=== PATIENT | female | born 1930 | race Caucasian/White ===

== ENCOUNTER 2017-01-27 22:06 | Emergency (ER) | payer MEDICARE ==
[2016-02-24 12:34] VITALS: BMI 23.2
[~2017-01-27 22:06] MED LIST: ALENDRONATE SOD70 MG PO; BACTRIM DS TABL1 TAB PO; BAYER CHEWABLE81 MG PO; CATAPRES0.1 MG PO; DOXEPIN HCL10 MG PO; HCTZ25 MG PO; LIPITOR20 MG PO; LISINOPRIL10 MG PO; LISINOPRIL5 MG PO; LOPRESSOR25 MG PO; MULTIPLE VITAMI1 TA1 PO; MUPIROCIN22 GM TOPICAL; NORVASC5 MG PO; NYSTATIN1 PWD TOPICAL; PLAVIX75 MG PO; ZESTRIL20 MG PO
[2017-01-27 23:23] LABS: BASOPHILS 0.3 % (0-2); EOSINOPHILS 2.2 % (0-7); HEMATOCRIT 36.2 % (36.0-48.0); HEMOGLOBIN 12.4 g/dL (12-16); IMMATURE GRANULOCYTES 0.2 % (0-5); MCH 29.7 pg (26.0-34.0); MCHC 34.3 g/dL (31.0-37.0); MCV 86.8 fL (80.0-100.0); MEAN PLATELET VOLUME 10.1 fL (7.4-10.4); MONOCYTES 7.4 % (2-11); NEUTROPHILS 59.9 % (40-80); PLATELET COUNT 254 10x3/uL (130-400); RBC 4.17 10x6/uL (4.00-5.40); RDW 14.3 % (11.5-14.5); WBC 6.5 10x3/uL (4.8-10.8)
[2017-01-27 23:38] LABS: ALBUMIN 3.6 g/dL (3.4-5.0); ALKALINE PHOSPHATASE 112 U/L (46-116); ALT (SGPT) 20 U/L (10-68); CALC OSMOLALITY 260 mosm/kg (275-300); CALCIUM 9.3 mg/dL (8.5-10.1); CARBON DIOXIDE 24.9 mmol/L (21.0-32.0); CHLORIDE - SERUM 96 mmol/L (98-107); GLUCOSE 100 mg/dL (74-106); POTASSIUM - SERUM 4.2 mmol/L (3.5-5.1); PROTEIN - SERUM 7.4 g/dL (6.4-8.2); SODIUM 129 mmol/L (136-145); UREA NITROGEN 19 mg/dL (7-18); eGFR NON AFRICAN AMERICAN 56 mL/min (90-120)
[2017-01-27 23:41] LABS: CREATINE KINASE 91 UL (21-215)
[2017-01-27 23:45] LABS: TROPONIN-I < 0.017 ng/mL (0.000-0.060)
== END 2017-01-28 00:52 | disposition home or self-care (01) ==
LOC: D.ER 22:06
PROVIDERS: Emergency Medicine
DX: R00.0 Tachycardia, unspecified (principal); I47.9 Paroxysmal tachycardia, unspecified; I16.0 Hypertensive urgency

== ENCOUNTER 2017-01-28 13:50 | Inpatient (IN) | payer MEDICARE ==
[~2017-01-28] VITALS: Ht 152.4 cm; Wt 57.0 kg
[2017-01-28 14:30] LABS: BASOPHILS 0.3 % (0-2); EOSINOPHILS 1.5 % (0-7); HEMATOCRIT 35.2 % (36.0-48.0); IMMATURE GRANULOCYTES 0.3 % (0-5); LYMPHOCYTES 22.4 % (15-50); MCH 29.7 pg (26.0-34.0); MCHC 34.1 g/dL (31.0-37.0); MCV 87.1 fL (80.0-100.0); MEAN PLATELET VOLUME 9.9 fL (7.4-10.4); MONOCYTES 5.5 % (2-11); PLATELET COUNT 262 10x3/uL (130-400); RBC 4.04 10x6/uL (4.00-5.40); RDW 14.5 % (11.5-14.5); WBC 6.5 10x3/uL (4.8-10.8)
[2017-01-28 14:48] LABS: ALBUMIN 3.5 g/dL (3.4-5.0); ANION GAP 14.3 mmol/L (8-16); BILIRUBIN - TOTAL 0.63 mg/dL (0.2-1.3); CALCIUM 9.2 mg/dL (8.5-10.1); CARBON DIOXIDE 22.6 mmol/L (21.0-32.0); CREATININE - SERUM 1.2 mg/dL (0.6-1.3); POTASSIUM - SERUM 4.9 mmol/L (3.5-5.1); PROTEIN - SERUM 7.1 g/dL (6.4-8.2)
[2017-01-28 15:45] LABS: APPEARANCE CLEAR (CLEAR); COLOR YELLOW (YELLOW); SPECIFIC GRAVITY 1.015 (1.005-1.020)
[2017-01-28 15:45] LABS: CREATINE KINASE 81 UL (21-215)
[2017-01-28 15:46] LABS: BILIRUBIN NEGATIVE (NEGATIVE); GLUCOSE NEGATIVE (NEGATIVE); KETONE NEGATIVE (NEGATIVE); LEUKOCYTE ESTERASE 2+ (NEGATIVE); NITRITE NEGATIVE (NEGATIVE); PROTEIN TRACE mg/dL (NEGATIVE); UROBILINOGEN NORMAL (NORMAL)
[2017-01-28 15:46] LABS: TROPONIN-I < 0.017 ng/mL (0.000-0.060)
[2017-01-28 15:49] LABS: BACTERIA MODERATE /hpf (NONE SEEN); EPITHELIAL CELLS 0-5 /hpf (0-5); RED CELLS - URINE 0-5 /hpf (0-5)
--- NOTE | 2017-01-28 18:00 | NUR ---
RECIVED FROM ER PER WC TO ROOM 211. WITOUT DIATRESS NOTED AT THIS TIME. RN FOR ADMIT ASSESSMENT
[2017-01-28 19:23] VITALS: BP 146/54; Ht 152.4 cm; Wt 57.0 kg
--- NOTE | 2017-01-28 19:44 | NUR ---
INITIAL ROUNDS COMPLETED. PT DENIED ANY DISCOMFORT. ADMISSION ASSESSMENT COMPLETED. IV TO LFA SL.. ALERT AND ORIENTED TO PERSON, PLACE AND TIME. SR PER CM HR 66. VSS. WILL CONTINUE TO MONITOR. SR UP X2, CALL LIGHT WITHIN REACH.
[2017-01-28 20:00] VITALS: BP 146/54
[2017-01-28 21:03] LABS: CKMB 2.3 U/L (0.0-3.6); CREATINE KINASE 68 UL (21-215)
[2017-01-28 21:04] LABS: TROPONIN-I < 0.017 ng/mL (0.000-0.060)
--- NOTE | 2017-01-28 22:48 | NUR ---
PM EKG DONE. PT DENIES ANY DISCOMFORT. SCD'S PLACED PER PT'S REQUEST. WILL CONTINUE TO MONITOR. SR UP X2, CALL LIGHT WITHIN REACH.
[2017-01-29] VITALS: BP 139/56
--- NOTE | 2017-01-29 01:12 | NUR ---
PT RESTING WITH EYES CLOSED. RESP EVEN AND REGULAR. SR UP X2, CALL LIGHT WITHIN REACH.
--- NOTE | 2017-01-29 02:26 | NUR ---
PT RESTING WITH EYES CLOSED. ON R SIDE. RESP EVEN AND REGULAR. SR UP X2,CALL LIGHT WITHIN REACH.
[2017-01-29 03:29] LABS: BASOPHILS 0.4 % (0-2); HEMATOCRIT 35.5 % (36.0-48.0); HEMOGLOBIN 12.3 g/dL (12-16); IMMATURE GRANULOCYTES 0.1 % (0-5); LYMPHOCYTES 27.4 % (15-50); MCH 30.1 pg (26.0-34.0); MCHC 34.6 g/dL (31.0-37.0); MCV 86.8 fL (80.0-100.0); MEAN PLATELET VOLUME 10.5 fL (7.4-10.4); MONOCYTES 8.1 % (2-11); PLATELET COUNT 283 10x3/uL (130-400); RBC 4.09 10x6/uL (4.00-5.40); RDW 14.5 % (11.5-14.5); WBC 7.1 10x3/uL (4.8-10.8)
--- NOTE | 2017-01-29 03:41 | NUR ---
PT RESTING WITH EYES CLOSED. RESP EVEN AND REGULAR. SR UP X2, CALL LIGHT WITHIN REACH.
[2017-01-29 04:00] VITALS: BP 150/67
[2017-01-29 04:09] LABS: CALC OSMOLALITY 267 mosm/kg (275-300); CALCIUM 8.8 mg/dL (8.5-10.1); CARBON DIOXIDE 26.4 mmol/L (21.0-32.0); CHLORIDE - SERUM 100 mmol/L (98-107); CKMB 2.4 U/L (0.0-3.6); CREATINE KINASE 75 UL (21-215); CREATININE - SERUM 1.1 mg/dL (0.6-1.3); GLUCOSE 89 mg/dL (74-106); POTASSIUM - SERUM 4.4 mmol/L (3.5-5.1); SODIUM 133 mmol/L (136-145); UREA NITROGEN 22 mg/dL (7-18); eGFR NON AFRICAN AMERICAN 50 mL/min (90-120)
[2017-01-29 04:16] LABS: TROPONIN-I < 0.017 ng/mL (0.000-0.060)
--- NOTE | 2017-01-29 06:22 | NUR ---
VSS THROUGHOUT NIGHT. SB PER CM. PT DENIED ANY DISCOMFORT. NEEDS MET; WILL CONTINUE TO MONITOR.
[2017-01-29 08:00] VITALS: BP 139/58
--- NOTE | 2017-01-29 08:02 | NUR ---
ASSESSMENT DONE, DENIES NEEDS.
--- NOTE | 2017-01-29 09:26 | NUR ---
RESTS IN BED WITH CALL LIGHT IN REACH. DEBORAH NEEDS AT THIS TIME. WILL MONITOR.
[2017-01-29 09:44] LABS: CKMB 2.4 U/L (0.0-3.6); CREATINE KINASE 60 UL (21-215); TROPONIN-I < 0.017 ng/mL (0.000-0.060)
--- NOTE | 2017-01-29 17:57 | NUR ---
WITHOUT CHANGES OR DISTRESS NOTED AT THIS TIME. DENIES NEEDS,
--- NOTE | 2017-01-29 20:02 | NUR ---
INITIAL ROUNDS COMPLETED AT 1910 HRS. PT DENIED ANY DISCOMFORT. ASSESSMENT COMPLETED AT 1925 HRS. VSS. SR PER CM HR 70. IV TO LFA SL. LUNGS CTA. PT DECLINES SCD'S AT THIS TIME. WILL CONTINUE TO MONITOR. SR UP X2, CALL LIGHT WITHIN REACH.
[2017-01-29 21:33] VITALS: BP 178/66
--- NOTE | 2017-01-29 22:19 | NUR ---
PM MEDS GIVEN. WILL CONTINUE TO MONITOR.
[2017-01-29 23:00] VITALS: BP 177/56
--- NOTE | 2017-01-29 23:51 | NUR ---
PT RESTING WITH EYES CLOSED. RESP EVEN AND REGULAR. SR UP X2, CALL LIGHT WITHIN REACH.
--- NOTE | 2017-01-30 02:12 | NUR ---
PT RESTING WITH EYES CLOSED. RESP EVEN AND REGULAR. SR UP X2, CALL LIGHT WITHIN REACH.
--- NOTE | 2017-01-30 04:48 | NUR ---
PT RESTING WITH EYES CLOSED. RESP EVEN AND REGULAR. SR UP X2, CALL LIGHT WITHIN REACH.
--- NOTE | 2017-01-30 06:09 | NUR ---
VSS THROUGHOUT NIGHT. SR/SB PER CM. PT DENIED ANY DISCOMFORT. NEEDS MET; WILL CONTINUE TO MONITOR.
[2017-01-30 06:37] VITALS: BP 114/54
--- NOTE | 2017-01-30 07:51 | NUR ---
ASSESSMENT COMPLETED. TELEMERTY SHOWS SB AT 57. DENIES ANY SYMPTOMS. LEFT FA SL. WILL MONITOR
[2017-01-30 08:22] VITALS: BP 175/56
[2017-01-30 11:43] VITALS: BP 145/54
--- NOTE | 2017-01-30 12:17 | NUR ---
SITTING UP EATING LUNCH. O2 ON. MONITOR SHOWS SR WITH OCC PVC. RATE IS 71.
--- NOTE | 2017-01-30 15:29 | NUR ---
Patient Name: KALEIGH GANT Admission Status: ER Accout number: [id number] Admission Date: 01-28-2017 : 1930 Admission Diagnosis: Attending: CLIF Current LOS: 2 Anticipated DC Date: 01-30-2017 Planned Disposition: Home Primary Insurance: [facility] Discharge Planning Comments: * Is the patient Alert and Oriented? Yes 0 * How many steps to enter\exit or inside your home? 5-6 0 * PCP DR. CHEUNG 0 * Pharmacy [facility] [place] 0 * Preadmission Environment Home Alone 0 * ADLs Independent 0 * Equipment Cane Walker 0 * Other Equipment [facility] - MEDICAL EQUIPMENT PROVIDER PREFERENCE 0 * List name and contact numbers for known caregivers / representatives who currently or will assist patient after discharge: JACIEL MAYA, DTR, MADIA LOVE, DTR, 0 * Community resources currently utilized None 0 * Please name any agencies selected above. NONE 0 * Can the patient safely return to the preadmission environment? Yes 0 * Has this patient been hospitalized within the prior 30 days at any hospital? No 0 CM MET WITH PT AND TWO DAUGHTERS IN ROOM TO DISCUSS DISCHARGE PLANNING AND NEEDS. PT REPORTS LIVING AT HOME INDEPENDENTLY AND ALONE. PT HAS 4 PRONGED CANE AND WALKER, SCOTTIE IS PROVIDER. PT HAS NO OUTSIDE SERVICES ASSISTING IN THE HOME. CM DISCUSSED AVAILABILITY OF HOME HEALTH, REHAB SERVICES AND MEDICAL EQUIPMENT. PT DENIES DISCHARGE NEEDS, REPORTS DAUGHTERS ARE HERE TO PICK HER UP FOR DISCHARGE HOME TODAY. Dust Brush Assembler: Parag Morton
--- NOTE | 2017-01-30 16:47 | NUR ---
pt DISCHARGED. INSTRUCTIONS GIVEN TO PT AND FAMILY. IV DCD WITH TIP INTACT. TO PRIVATE CAR PER WHEEL CHAIR
== END 2017-01-30 16:49 | disposition home or self-care (01) | DRG 310 ==
LOC: D.ER 13:50 → D.M2 17:00
PROVIDERS: Family Medicine; ADMIT Family Medicine
DX: R00.1 Bradycardia, unspecified (principal); I25.10 Atherosclerotic heart disease of native coronary artery without angina pectoris; Z95.5 Presence of coronary angioplasty implant and graft; I10 Essential (primary) hypertension; M81.0 Age-related osteoporosis without current pathological fracture

== ENCOUNTER 2017-02-15 14:18 | Emergency (ER) | payer MEDICARE ==
[2017-01-28 19:23] VITALS: BMI 25.2
[2017-02-15 14:52] LABS: BASOPHILS 0.4 % (0-2); EOSINOPHILS 1.3 % (0-7); HEMATOCRIT 38.3 % (36.0-48.0); HEMOGLOBIN 13.1 g/dL (12-16); IMMATURE GRANULOCYTES 0.1 % (0-5); LYMPHOCYTES 19.5 % (15-50); MCH 30.2 pg (26.0-34.0); MCHC 34.2 g/dL (31.0-37.0); MCV 88.2 fL (80.0-100.0); MEAN PLATELET VOLUME 9.8 fL (7.4-10.4); MONOCYTES 6.1 % (2-11); NEUTROPHILS 72.6 % (40-80); PLATELET COUNT 306 10x3/uL (130-400); RBC 4.34 10x6/uL (4.00-5.40); RDW 14.5 % (11.5-14.5); WBC 6.9 10x3/uL (4.8-10.8)
[2017-02-15 15:10] LABS: APPEARANCE CLEAR (CLEAR); BILIRUBIN NEGATIVE (NEGATIVE); COLOR YELLOW (YELLOW); GLUCOSE NEGATIVE (NEGATIVE); KETONE NEGATIVE (NEGATIVE); LEUKOCYTE ESTERASE 1+ (NEGATIVE); NITRITE NEGATIVE (NEGATIVE); PROTEIN NEGATIVE (NEGATIVE); UROBILINOGEN NORMAL (NORMAL)
[2017-02-15 15:14] LABS: BACTERIA FEW /hpf (NONE SEEN); EPITHELIAL CELLS 0-5 /hpf (0-5); RED CELLS - URINE 0-5 /hpf (0-5); WHITE CELLS - URINE 0-5 /hpf (0-5)
[2017-02-15 15:14] LABS: ALBUMIN 3.7 g/dL (3.4-5.0); ANION GAP 14.7 mmol/L (8-16); BILIRUBIN - TOTAL 0.55 mg/dL (0.2-1.3); CALCIUM 9.6 mg/dL (8.5-10.1); CARBON DIOXIDE 25.8 mmol/L (21.0-32.0); CREATININE - SERUM 1.1 mg/dL (0.6-1.3); POTASSIUM - SERUM 4.5 mmol/L (3.5-5.1); PROTEIN - SERUM 7.8 g/dL (6.4-8.2)
[2017-02-15 15:42] LABS: CREATINE KINASE 68 UL (21-215); TROPONIN-I < 0.017 ng/mL (0.000-0.060)
== END 2017-02-15 17:10 | disposition home or self-care (01) ==
LOC: D.ER 14:18
PROVIDERS: Emergency Medicine; Nurse Practitioner Acute Care
DX: R53.1 Weakness (principal); R00.2 Palpitations; I10 Essential (primary) hypertension; I49.3 Ventricular premature depolarization

== ENCOUNTER 2017-02-22 18:46 | Inpatient (IN) | payer MEDICARE ==
[2017-02-22 19:35] LABS: BASOPHILS 0.1 % (0-2); EOSINOPHILS 0.1 % (0-7); HEMATOCRIT 34.3 % (36.0-48.0); HEMOGLOBIN 11.9 g/dL (12-16); IMMATURE GRANULOCYTES 0.2 % (0-5); MCH 29.6 pg (26.0-34.0); MCHC 34.7 g/dL (31.0-37.0); MCV 85.3 fL (80.0-100.0); MEAN PLATELET VOLUME 10.1 fL (7.4-10.4); MONOCYTES 5.5 % (2-11); NEUTROPHILS 86.1 % (40-80); PLATELET COUNT 259 10x3/uL (130-400); RBC 4.02 10x6/uL (4.00-5.40); RDW 13.8 % (11.5-14.5); WBC 11.4 10x3/uL (4.8-10.8)
[2017-02-22 20:10] LABS: ALBUMIN 3.6 g/dL (3.4-5.0); ALKALINE PHOSPHATASE 88 U/L (46-116); ALT (SGPT) 19 U/L (10-68); BILIRUBIN - TOTAL 0.93 mg/dL (0.2-1.3); CALC OSMOLALITY 248 mosm/kg (275-300); CARBON DIOXIDE 22.8 mmol/L (21.0-32.0); CHLORIDE - SERUM 89 mmol/L (98-107); GLUCOSE 112 mg/dL (74-106); POTASSIUM - SERUM 4.7 mmol/L (3.5-5.1); PROTEIN - SERUM 7.2 g/dL (6.4-8.2); SODIUM 122 mmol/L (136-145); UREA NITROGEN 19 mg/dL (7-18); eGFR NON AFRICAN AMERICAN 56 mL/min (90-120)
[2017-02-22 20:11] LABS: APTT 26.7 SECONDS (22.8-39.4); INR 1.08 (0.85-1.17); PROTIME 13.9 SECONDS (11.6-15.0)
[2017-02-22 20:18] LABS: AMYLASE - SERUM 63 U/L (25-115); CREATINE KINASE 77 UL (21-215); LIPASE 176 U/L (73-393); PRO BNP 451 pg/mL (0-450)
[2017-02-22 20:23] LABS: APPEARANCE CLEAR (CLEAR); BILIRUBIN NEGATIVE (NEGATIVE); COLOR YELLOW (YELLOW); GLUCOSE NEGATIVE (NEGATIVE); KETONE NEGATIVE (NEGATIVE); LEUKOCYTE ESTERASE NEGATIVE (NEGATIVE); NITRITE NEGATIVE (NEGATIVE); PROTEIN NEGATIVE (NEGATIVE); SPECIFIC GRAVITY 1.015 (1.005-1.020); UROBILINOGEN NORMAL (NORMAL)
[2017-02-22 20:23] LABS: TROPONIN-I < 0.017 ng/mL (0.000-0.060)
[2017-02-22 20:36] LABS: UDS - AMPHET NEGATIVE QUAL (NEGATIVE); UDS - BARB NEGATIVE QUAL (NEGATIVE); UDS - BENZO NEGATIVE QUAL (NEGATIVE); UDS - COCAINE NEGATIVE QUAL (NEGATIVE); UDS - METH NEGATIVE QUAL (NEGATIVE); UDS - OPIATE NEGATIVE QUAL (NEGATIVE); UDS - PCP NEGATIVE QUAL (NEGATIVE); UDS - THC NEGATIVE QUAL (NEGATIVE)
--- NOTE | 2017-02-22 23:06 | NUR ---
REPORT RECEIVED FROM JUAN LESTER.
--- NOTE | 2017-02-22 23:39 | NUR ---
ARRIVED TO FLOOR VIA WHEELCHAIR, ACCOMPANIED BY HOSPITAL STAFF AND DAUGHTER. ORIENTED TO UNIT AND PLACED ON TELEMETRY 72 SR WITH MULTIFOCAL PVCS. HALTER MONITOR ALREADY ON, WILL LEAVE ON FOR NOW. NS @ 75 INITIATED TO RIGHT FOREARM. PLAN OF CARE DISCUSSED, NO NEEDS VOICED AT THIS TIME. CALL LIGHT IN REACH. SEE NURSE ASSESSMENT. WILL CONTINUE TO MONITOR.
[2017-02-23] VITALS: BP 156/58
--- NOTE | 2017-02-23 03:11 | NUR ---
BUSINESS OFFICE SPECIALIST AT BEDSIDE TO OBTAIN VITALS, CALL LIGHT IN REACH. WILL CONTINUE TO MONITOR.
[2017-02-23 04:00] VITALS: BP 151/91
--- NOTE | 2017-02-23 06:36 | NUR ---
NO CHANGES FROM PREVIOUS ASSESSMET, CALL LIGHT IN REACH. WILL CONTINUE TO MONITOR.
[2017-02-23 06:38] LABS: ANION GAP 13.5 mmol/L (8-16); CARBON DIOXIDE 22.7 mmol/L (21.0-32.0); POTASSIUM - SERUM 4.2 mmol/L (3.5-5.1)
[2017-02-23 08:15] VITALS: BP 146/53
[2017-02-23 13:09] VITALS: BP 163/83
[2017-02-23 16:26] VITALS: BP 155/47
--- NOTE | 2017-02-23 19:40 | NUR ---
RECEIVED REPORT, WILL ASSUME CARE OF PT, DENIES ANY NEEDS, VISITING WITH FAMILY AND FRIENDS, BED IS LOW, SRX2, CALL LIGHT IN REACH, WILL CONTINUE PLAN OF CARE
[2017-02-23 20:00] VITALS: BP 159/51
[2017-02-24] VITALS: BP 117/48
[2017-02-24 04:00] VITALS: BP 158/57
--- NOTE | 2017-02-24 04:24 | NUR ---
ASSESSMENT COMPLETE, SEE FLOWSHEET, PT SLEEPING, DAUGHTER AT BEDSIDE, BED IS LOW, SRX2, CALL LIGHT IN REACH, WILL CONTINUE PLAN OF CARE
[2017-02-24 05:16] LABS: BASOPHILS 0.2 % (0-2); EOSINOPHILS 1.8 % (0-7); HEMATOCRIT 30.9 % (36.0-48.0); HEMOGLOBIN 10.7 g/dL (12-16); IMMATURE GRANULOCYTES 0.2 % (0-5); LYMPHOCYTES 18.1 % (15-50); MCH 29.8 pg (26.0-34.0); MCHC 34.6 g/dL (31.0-37.0); MCV 86.1 fL (80.0-100.0); MEAN PLATELET VOLUME 10.1 fL (7.4-10.4); MONOCYTES 9.1 % (2-11); NEUTROPHILS 70.6 % (40-80); PLATELET COUNT 266 10x3/uL (130-400); RBC 3.59 10x6/uL (4.00-5.40); RDW 13.9 % (11.5-14.5)
[2017-02-24 05:19] LABS: WBC 6.6 10x3/uL (4.8-10.8)
[2017-02-24 05:29] LABS: ANION GAP 11.8 mmol/L (8-16); CALCIUM 8.2 mg/dL (8.5-10.1); CARBON DIOXIDE 22.2 mmol/L (21.0-32.0); CREATININE - SERUM 0.9 mg/dL (0.6-1.3)
[2017-02-24 08:20] VITALS: BP 176/62
--- NOTE | 2017-02-24 10:02 | NUR ---
PATIENT RESTING WITHOUT C/O ANY KIND.
[2017-02-24 12:35] VITALS: BP 165/59
--- NOTE | 2017-02-24 14:47 | NUR ---
* Is the patient Alert and Oriented? Yes 0 * How many steps to enter\exit or inside your home? 4 0 * PCP Dr. Almeida 0 * Pharmacy [facility] 0 * Preadmission Environment Home Alone 0 * ADLs Independent 0 * Equipment Cane Walker 0 * List name and contact numbers for known caregivers / representatives who currently or will assist patient after discharge: Daughter Juana Wagoner [phone] Daughter Juana Aguilera [phone] 0 * Additional services required to return to the preadmission environment? Yes 0 * Can the patient safely return to the preadmission environment? Yes 0 * Has this patient been hospitalized within the prior 30 days at any hospital? Yes 02/24/2017 14:42 DCP: Discharge Planning Patient Name: KALEIGH GANT Admission Status: ER Accout number: [id number] Admission Date: 02-22-2017 : 1930 Admission Diagnosis:HYPO-OSMOLALITY AND HYPONATREMIA Attending: BE Current LOS: 2 Anticipated DC Date: 02-24-2017 Planned Disposition: Home with Home Health Primary Insurance: [facility] Discharge Planning Comments: CM met with patient & daughter, Jona, at bedside. Patient lives alone & is independent with all ADL's & IADL's. She uses a cane PRN but also has a rolling walker. She does not have home health services. DC order rec'd. Discussed home health services with them - patient is agreeable. Reviewed list of local agencies - they have chosen [facility] - GUIDO signed. Referral faxed and called to Shannon with [employer] [facility]. Anticipate DC this afternoon. Corporate Executive Chef: Amna Swan
[2017-02-24 15:06] VITALS: BP 149/66
--- NOTE | 2017-02-24 16:28 | NUR ---
REVIEWED [facility] DISCHARGE INSTRUCTIONS. SHE AND DAUGHTER VOICE UNDERSTANDING [facility] MEDICATIONS AND FOLLOW UP APPTS REGARDING F/U WITH DR. GARNICA AND HOUSE CALLS. WHEELED OUT TO CAR IN A WHEELCHAIR AND DRIVEN HOME BY DAUGHTER.
== END 2017-02-24 16:30 | disposition home health service (06) | DRG 641 ==
LOC: D.ER 18:46 → D.M2 22:10
PROVIDERS: Emergency Medicine; ADMIT Emergency Medicine
DX: E87.1 Hypo-osmolality and hyponatremia (principal); F41.9 Anxiety disorder, unspecified; M81.0 Age-related osteoporosis without current pathological fracture; I10 Essential (primary) hypertension; I25.10 Atherosclerotic heart disease of native coronary artery without angina pectoris

== ENCOUNTER 2018-07-21 09:06 | Inpatient (IN) | payer MEDICARE ==
[2018-07-21] VITALS (14 sets, daily range): BP systolic 117–223; BP diastolic 37–106; BMI 23.4
[~2018-07-21] VITALS: Ht 152.4 cm; Wt 54.4 kg
--- NOTE | ~2018-07-21 | MORECARE ---
CASE MANAGEMENT DISCHARGE SUMMARY PATIENT: KALEIGH GANT UNIT: [id number] ADM DATE: 07/21/18 AGE: 88 : 32 SEX: F ROOM/BED: D.1205 AUTHOR: YESSICA,ODALYS PHYSICIAN: REFERRING PHYSICIAN: CAM OSORIO DO DATE OF SERVICE: 07/31/18 Discharge Plan Patient Name: KALEIGH GANT Facility: [facility]:[place] : 1930 Planned Disposition: Inpatient Rehab Anticipated Discharge Date: Discharge Date: Expected LOS: Initial Reviewer: [email or web address] Initial Review Date: 07/24/2018 Generated: 07/31/18 2:55 pm Comments DCP- Discharge Planning Updated by [id number]: Lori Simmons on 07/31/18 12:[address] CM spoke with patient and daughter about discharge plans since insurance denied patient for IRF. Patient and daughter want to attempt SNF authorization with insurance. Patient and daughter selected [facility] for SNF. Signed GUIDO form. CM called and spoke with Kim at [facility] about referral. Faxed records as requested. Awaiting determination of auth. CM will continue to follow and assist as needed with discharge planning / needs. DCP- Discharge Planning Updated by [email or web address]: Sharon Cao on 07/31/18 12:[address] Late Entry 07/24/18 @ 1825 Patient Name: KALEIGH GANT Admission Status: ER Accout number: [id number] Admission Date: 07-21-2018 : 1930 Admission Diagnosis:RIGHT LOWER QUADRANT PAIN Attending: CAM OSORIO Current LOS: 4 Anticipated DC Date: Planned Disposition: Inpatient Rehab Primary Insurance: [facility] [employer] SOLUTIONS Discharge Planning Comments: CM met with patient and daughter at bedside after obtaining verbal consent. Patient states that she lives alone and is will to go to inpatient rehab here @ [facility] inpatient rehab facility. Patient to have rehab eval. Patient denies any discharge needs at this time. CM will continue to follow and assist with discharge planning / needs. Chassis Wirer: Sharon Cao DCP- Discharge Planning Updated by [id number]: Lorri Duvall on 07/30/18 7:[address] PLAN FOR DISCHARGE PENDING. PATIENT'S BLODD PRESSURE IS POORLY CONTROLLED. INCREASED AMLODIPINE DOSAGE. HE HAD A PIPIDA SCAN TODAY. PLAN EDG WITH ESOPHAGEAL DILATION IN THE AM. FOLLOW LABS. DCPIA - Discharge Planning Initial Assessment Updated by [email or web address]: Sharon Cao on 07/25/18 1:35 pm * Is the patient Alert and Oriented? Yes * How many steps to enter\exit or inside your home? 4-5 * PCP Juan Pablo * Pharmacy [place] * Preadmission Environment Home Alone * ADLs Independent * Equipment Cane * Other Equipment Walker * List name and contact numbers for known caregivers / representatives who currently or will assist patient after discharge: Jona Wagoner daughter [phone] Viki Aguilera daughter [phone] * Verbal permission to speak to the caregivers and representatives has been obtained from the patient. Yes * Community resources currently utilized None * Additional services required to return to the preadmission environment? No * Can the patient safely return to the preadmission environment? Yes * Has this patient been hospitalized within the prior 30 days at any hospital? No External Providers External Provider: [facility] Next Contact Date: Service Request Date: Service Type: Resolution: Reviewer: Comments: Last DP export: 07/31/18 12:13 Patient Name: KALEIGH GANT Page 57437 at 1355 All edits/amendments must be made on the electronic document DICTATION DATE: 07/31/18 1352 TIRE REPAIRER: NIURKA 07/31/18 1355 RPT#: [id number] DC DATE: STATUS: ADM IN [facility] [address] [place] [address] END OF REPORT
--- NOTE | ~2018-07-21 | MORECARE ---
CASE MANAGEMENT DISCHARGE SUMMARY PATIENT: KALEIGH GANT UNIT: [id number] ADM DATE: 07/21/18 AGE: 88 : 32 SEX: F ROOM/BED: D.1205 AUTHOR: YESSICA,DOC PHYSICIAN: REFERRING PHYSICIAN: CAM OSORIO DO DATE OF SERVICE: 08/02/18 Discharge Plan Patient Name: KALEIGH GANT Facility: [facility]:[place] : 1930 Planned Disposition: Inpatient Rehab Anticipated Discharge Date: Discharge Date: 08/01/2018 Expected LOS: Initial Reviewer: [email or web address] Initial Review Date: 07/24/2018 Generated: 08/02/18 4:04 pm Comments DCP- Discharge Planning Updated by [email or web address]: Lori Simmons on 08/01/18 1:[address] CM received orders for patient to discharge home. CM met with physical therapist, Ric Castelan, about plans for patient to discharge home. Ric stated patient was safe in her ambulation at this time and felt home would be a safe discharge for the patient at this time. CM met with patient and her daughter about plans to discharge to home today. Both stated they agreed with this plan and will wait from home to hear from [facility] to see if Insurance approves SNF or not. CM explained and served DC IMM. CM will continue to follow and assist with discharge planning / needs. DCP- Discharge Planning Updated by [id number]: Lori Simmons on 07/31/18 12:[address] CM spoke with patient and daughter about discharge plans since insurance denied patient for IRF. Patient and daughter want to attempt SNF authorization with insurance. Patient and daughter selected [facility] for SNF. Signed GUIDO form. CM called and spoke with Kim at [facility] about referral. Faxed records as requested. Awaiting determination of auth. CM will continue to follow and assist as needed with discharge planning / needs. DCP- Discharge Planning Updated by [email or web address]: Sharon Cao on 07/31/18 12:[address] Late Entry 07/24/18 @ 1825 Patient Name: KALEIGH GANT Admission Status: ER Accout number: [id number] Admission Date: 07-21-2018 : 2 Admission Diagnosis:RIGHT LOWER QUADRANT PAIN Attending: CAM OSORIO Current LOS: 4 Anticipated DC Date: Planned Disposition: Inpatient Rehab Primary Insurance: [facility] MEDIC[facility] SOLUTIONS Discharge Planning Comments: CM met with patient and daughter at bedside after obtaining verbal consent. Patient states that she lives alone and is will to go to inpatient rehab here @ [facility] inpatient rehab facility. Patient to have rehab eval. Patient denies any discharge needs at this time. CM will continue to follow and assist with discharge planning / needs. Machine Designer: Sharon Cao DCP- Discharge Planning Updated by [id number]: Lorri Duvall on 07/30/18 7:[address] PLAN FOR DISCHARGE PENDING. PATIENT'S BLODD PRESSURE IS POORLY CONTROLLED. INCREASED AMLODIPINE DOSAGE. HE HAD A PIPIDA SCAN TODAY. PLAN EDG WITH ESOPHAGEAL DILATION IN THE AM. FOLLOW LABS. DCPIA - Discharge Planning Initial Assessment Updated by [email or web address]: Sharon Cao on 07/25/18 1:35 pm * Is the patient Alert and Oriented? Yes * How many steps to enter\exit or inside your home? 4-5 * PCP Juan Pablo * Pharmacy [place] * Preadmission Environment Home Alone * ADLs Independent * Equipment Cane * Other Equipment Walker * List name and contact numbers for known caregivers / representatives who currently or will assist patient after discharge: Jona Wagoner daughter [phone] Viki Aguilera daughter [phone] * Verbal permission to speak to the caregivers and representatives has been obtained from the patient. Yes * Community resources currently utilized None * Additional services required to return to the preadmission environment? No * Can the patient safely return to the preadmission environment? Yes * Has this patient been hospitalized within the prior 30 days at any hospital? No Coverage Notice Reviewer: [email or web address] Simmons Notice Issued Date-Time: 07/31/2018 13:52 Notice Type: Patient Choice Letter Notice Delivered To: Patient Relationship to Patient: Self Linter Tender Name: Delivery Method: HAND - Hand Delivered Keely Days: Prior Verbal Notification: Recipient Understood Notice: Yes Recipient Signature: Yes Med Rec Note Co-signed by Attending: Coverage Notice Comment: Reviewer: [email or web address] Simmons Notice Issued Date-Time: 08/01/2018 14:05 Notice Type: IM Discharge Notice Notice Delivered To: Patient Relationship to Patient: Self Linter Tender Name: Delivery Method: HAND - Hand Delivered Keely Days: Prior Verbal Notification: Recipient Understood Notice: Yes Recipient Signature: Yes Med Rec Note Co-signed by Attending: Coverage Notice Comment: Last DP export: 08/01/18 1:38 Patient Name: KALEIGH GANT Page 73036 at 1504 All edits/amendments must be made on the electronic document DICTATION DATE: 08/02/18 1504 SURFBOARD MAKER: NIURKA 08/02/18 1504 RPT#: [id number] DC DATE:08/01/18 STATUS: DIS IN [facility] [address] [place] [address] END OF REPORT
--- NOTE | ~2018-07-21 | MORECARE ---
CASE MANAGEMENT DISCHARGE SUMMARY PATIENT: KALEIGH GANT UNIT: [id number] ADM DATE: 07/21/18 AGE: 88 : 32 SEX: F ROOM/BED: D.1205 AUTHOR: ODALYS JUAN PHYSICIAN: REFERRING PHYSICIAN: CAM OSORIO DO DATE OF SERVICE: 07/30/18 Discharge Plan Patient Name: KALEIGH GANT Facility: [facility]:[place] : 1930 Planned Disposition: Inpatient Rehab Anticipated Discharge Date: Discharge Date: Expected LOS: Initial Reviewer: [email or web address] Initial Review Date: 07/24/2018 Generated: 07/30/18 9:27 pm Comments DCP- Discharge Planning Updated by [id number]: Lorri Duvall on 07/30/18 7:[address] PLAN FOR DISCHARGE PENDING. PATIENT'S BLODD PRESSURE IS POORLY CONTROLLED. INCREASED AMLODIPINE DOSAGE. HE HAD A PIPIDA SCAN TODAY. PLAN EDG WITH ESOPHAGEAL DILATION IN THE AM. FOLLOW LABS. DCP- Discharge Planning Updated by [id number]: Sharon Cao on 07/25/18 12:[address] Late Entry 07/24/18 @ 1825 Patient Name: KALEIGH GANT Admission Status: ER Accout number: [id number] Admission Date: 07-21-2018 : 1930 Admission Diagnosis:RIGHT LOWER QUADRANT PAIN Attending: CAM OSORIO Current LOS: 4 Anticipated DC Date: Planned Disposition: Inpatient Rehab Primary Insurance: [facility] [employer] [employer] Discharge Planning Comments: Heritage Consultant: Sharon Cao DCPIA - Discharge Planning Initial Assessment Updated by [email or web address]: Sharon Cao on 07/25/18 1:35 pm * Is the patient Alert and Oriented? Yes * How many steps to enter\exit or inside your home? 4-5 * PCP Juan Pablo * Pharmacy [place] * Preadmission Environment Home Alone * ADLs Independent * Equipment Cane * Other Equipment Walker * List name and contact numbers for known caregivers / representatives who currently or will assist patient after discharge: Jona Ciaran daughter [phone] Viki Aguilera daughter [phone] * Verbal permission to speak to the caregivers and representatives has been obtained from the patient. Yes * Community resources currently utilized None * Additional services required to return to the preadmission environment? No * Can the patient safely return to the preadmission environment? Yes * Has this patient been hospitalized within the prior 30 days at any hospital? No Last DP export: 07/25/18 12:42 p Patient Name: KALEIGH GANT Page 42120 at 2027 All edits/amendments must be made on the electronic document DICTATION DATE: 07/30/182025 AVIATION ORDNANCE OFFICER: NIURKA 07/30/182025 RPT#: [id number] DC DATE: STATUS: ADM IN [facility] [address] [place] [address] END OF REPORT
--- NOTE | ~2018-07-21 | MORECARE ---
CASE MANAGEMENT DISCHARGE SUMMARY PATIENT: KALEIGH GANT UNIT: [id number] ADM DATE: 07/21/18 AGE: 88 : 32 SEX: F ROOM/BED: D.1205 AUTHOR: ODALYS JUAN PHYSICIAN: REFERRING PHYSICIAN: CAM OSORIO DO DATE OF SERVICE: 07/31/18 Discharge Plan Patient Name: KALEIGH GANT Facility: [facility]:[place] : 1930 Planned Disposition: Inpatient Rehab Anticipated Discharge Date: Discharge Date: Expected LOS: Initial Reviewer: [email or web address] Initial Review Date: 07/24/2018 Generated: 07/31/18 2:12 pm Comments DCP- Discharge Planning Updated by [email or web address]: Sharon Cao on 07/31/18 12:[address] Late Entry 07/24/18 @ 1825 Patient Name: KALEIGH GANT Admission Status: ER Accout number: [id number] Admission Date: 07-21-2018 : 1930 Admission Diagnosis:RIGHT LOWER QUADRANT PAIN Attending: CAM OSORIO Current LOS: 4 Anticipated DC Date: Planned Disposition: Inpatient Rehab Primary Insurance: [facility] [employer] [employer] Discharge Planning Comments: CM met with patient and daughter at bedside after obtaining verbal consent. Patient states that she lives alone and is will to go to inpatient rehab here @ [facility] inpatient rehab facility. Patient to have rehab eval. Patient denies any discharge needs at this time. CM will continue to follow and assist with discharge planning / needs. Palliative Senior Np: Sharon Cao DCP- Discharge Planning Updated by [email or web address]: Lorri Duvall on 07/30/18 7:[address] PLAN FOR DISCHARGE PENDING. PATIENT'S BLODD PRESSURE IS POORLY CONTROLLED. INCREASED AMLODIPINE DOSAGE. HE HAD A PIPIDA SCAN TODAY. PLAN EDG WITH ESOPHAGEAL DILATION IN THE AM. FOLLOW LABS. DCPIA - Discharge Planning Initial Assessment Updated by [email or web address]: Sharon Cao on 07/25/18 1:35 pm * Is the patient Alert and Oriented? Yes * How many steps to enter\exit or inside your home? 4-5 * PCP Juan Pablo * Pharmacy [place] * Preadmission Environment Home Alone * ADLs Independent * Equipment Cane * Other Equipment Walker * List name and contact numbers for known caregivers / representatives who currently or will assist patient after discharge: Jona Wagoner daughter [phone] Viki Aguilera daughter [phone] * Verbal permission to speak to the caregivers and representatives has been obtained from the patient. Yes * Community resources currently utilized None * Additional services required to return to the preadmission environment? No * Can the patient safely return to the preadmission environment? Yes * Has this patient been hospitalized within the prior 30 days at any hospital? No Last DP export: 07/30/18 7:27 Patient Name: KALEIGH GANT Page 73899 at 1313 All edits/amendments must be made on the electronic document DICTATION DATE: 07/31/18 1312 AGILE QA TESTER: NIURKA 07/31/18 1312 RPT#: [id number] [place] DATE: STATUS: ADM IN [facility] [address] [place] [address] END OF REPORT
--- NOTE | ~2018-07-21 | MORECARE ---
CASE MANAGEMENT DISCHARGE SUMMARY PATIENT: KALEIGH GANT UNIT: [id number] ADM DATE: 07/21/18 AGE: 88 : 32 SEX: F ROOM/BED: D.1205 AUTHOR: YESSICA,ODALYS PHYSICIAN: REFERRING PHYSICIAN: CAM OSORIO DO DATE OF SERVICE: 07/31/18 Discharge Plan Patient Name: KALEIGH GANT Facility: [facility]:[place] : 1930 Planned Disposition: Inpatient Rehab Anticipated Discharge Date: Discharge Date: Expected LOS: Initial Reviewer: [email or web address] Initial Review Date: 07/24/2018 Generated: 07/31/18 3:06 pm Comments DCP- Discharge Planning Updated by [email or web address]: Lori Simmons on 07/31/18 12:[address] CM spoke with patient and daughter about discharge plans since insurance denied patient for IRF. Patient and daughter want to attempt SNF authorization with insurance. Patient and daughter selected [facility] for SNF. Signed GUIDO form. CM called and spoke with [facility] at [facility] Faxed records as requested. Awaiting determination of auth. CM will continue to follow and assist as needed with discharge planning / needs. DCP- Discharge Planning Updated by [email or web address]: Sharon Cao on 07/31/18 12:[address] Late Entry 07/24/18 @ 1825 Patient Name: KALEIGH GANT Admission Status: ER Accout number: [id number] Admission Date: 07-21-2018 : 1930 Admission Diagnosis:RIGHT LOWER QUADRANT PAIN Attending: CAM OSORIO Current LOS: 4 Anticipated DC Date: Planned Disposition: Inpatient Rehab Primary Insurance: [facility] [employer] Discharge Planning Comments: CM met with patient and daughter at bedside after obtaining verbal consent. Patient states that she lives alone and is will to go to inpatient rehab here @ [facility] inpatient rehab facility. Patient to have rehab eval. Patient denies any discharge needs at this time. CM will continue to follow and assist with discharge planning / needs. Motor Setter: Sharon Cao DCP- Discharge Planning Updated by [email or web address]: Lorri Duvall on 07/30/18 7:[address] PLAN FOR DISCHARGE PENDING. PATIENT'S BLODD PRESSURE IS POORLY CONTROLLED. INCREASED AMLODIPINE DOSAGE. HE HAD A PIPIDA SCAN TODAY. PLAN EDG WITH ESOPHAGEAL DILATION IN THE AM. FOLLOW LABS. DCPIA - Discharge Planning Initial Assessment Updated by [email or web address]: Sharon Cao on 07/25/18 1:35 pm * Is the patient Alert and Oriented? Yes * How many steps to enter\exit or inside your home? 4-5 * PCP Juan Pablo * Pharmacy [place] * Preadmission Environment Home Alone * ADLs Independent * Equipment Cane * Other Equipment Walker * List name and contact numbers for known caregivers / representatives who currently or will assist patient after discharge: Jona Wagoner daughter [phone] Viki Aguilera daughter [phone] * Verbal permission to speak to the caregivers and representatives has been obtained from the patient. Yes * Community resources currently utilized None * Additional services required to return to the preadmission environment? No * Can the patient safely return to the preadmission environment? Yes * Has this patient been hospitalized within the prior 30 days at any hospital? No Last DP export: 07/31/18 12:55 Patient Name: KALEIGH GANT Page 78650 at 1406 All edits/amendments must be made on the electronic document DICTATION DATE: 07/31/181405 FLORICULTURE PROFESSOR: NIURKA 07/31/181405 RPT#: [id number] DC DATE: STATUS: ADM IN [facility] [address] [place] [address] END OF REPORT
--- NOTE | ~2018-07-21 | MORECARE ---
CASE MANAGEMENT DISCHARGE SUMMARY PATIENT: KALEIGH GANT UNIT: [id number] ADM DATE: 07/21/18 AGE: 88 : 32 SEX: F ROOM/BED: D.1205 AUTHOR: YESSICA,DOC PHYSICIAN: REFERRING PHYSICIAN: CAM OSORIO DO DATE OF SERVICE: 08/01/18 Discharge Plan Patient Name: KALEIGH GANT Facility: [facility]:[place] : 1930 Planned Disposition: Inpatient Rehab Anticipated Discharge Date: Discharge Date: Expected LOS: Initial Reviewer: [email or web address] Initial Review Date: 07/24/2018 Generated: 08/01/18 3:38 pm Comments DCP- Discharge Planning Updated by [email or web address]: Lori Simmons on 08/01/18 1:[address] CM received orders for patient to discharge home. CM met with physical therapist, Ric Castelan, about plans for patient to discharge home. Ric stated patient was safe in her ambulation at this time and felt home would be a safe discharge for the patient at this time. CM met with patient and her daughter about plans to discharge to home today. Both stated they agreed with this plan and will wait from home to hear from [facility] to see if Insurance approves SNF or not. CM explained and served DC IMM. CM will continue to follow and assist with discharge planning / needs. DCP- Discharge Planning Updated by [email or web address]: Lori Simmons on 07/31/18 12:[address] CM spoke with patient and daughter about discharge plans since insurance denied patient for IRF. Patient and daughter want to attempt SNF authorization with insurance. [facility] Signed GUIDO form. CM called and spoke with Kim at [facility] about referral. Faxed records as requested. Awaiting determination of auth. CM will continue to follow and assist as needed with discharge planning / needs. DCP- Discharge Planning Updated by [email or web address]: Sharon Cao on 07/31/18 12:[address] Late Entry 07/24/18 @ 1825 Patient Name: KALEIGH GANT Admission Status: ER Accout number: [id number] Admission Date: 07-21-2018 : 2 Admission Diagnosis:RIGHT LOWER QUADRANT PAIN Attending: CAM OSORIO Current LOS: 4 Anticipated DC Date: Planned Disposition: Inpatient Rehab Primary Insurance: [facility] MED[employer] SOLUTIONS Discharge Planning Comments: CM met with patient and daughter at bedside after obtaining verbal consent. Patient states that she lives alone and is will to go to inpatient rehab here @ [facility] inpatient rehab facility. Patient to have rehab eval. Patient denies any discharge needs at this time. CM will continue to follow and assist with discharge planning / needs. Domestic Technician: Sharon Cao DCP- Discharge Planning Updated by [email or web address]: Lorri Duvall on 07/30/18 7:[address] PLAN FOR DISCHARGE PENDING. PATIENT'S BLODD PRESSURE IS POORLY CONTROLLED. INCREASED AMLODIPINE DOSAGE. HE HAD A PIPIDA SCAN TODAY. PLAN EDG WITH ESOPHAGEAL DILATION IN THE AM. FOLLOW LABS. DCPIA - Discharge Planning Initial Assessment Updated by [email or web address]: Sharon Cao on 07/25/18 1:35 pm * Is the patient Alert and Oriented? Yes * How many steps to enter\exit or inside your home? 4-5 * PCP Juan Pablo * Pharmacy [place] * Preadmission Environment Home Alone * ADLs Independent * Equipment Cane * Other Equipment Walker * List name and contact numbers for known caregivers / representatives who currently or will assist patient after discharge: Jona Wagoner daughter [phone] Viki Aguilera daughter [phone] * Verbal permission to speak to the caregivers and representatives has been obtained from the patient. Yes * Community resources currently utilized None * Additional services required to return to the preadmission environment? No * Can the patient safely return to the preadmission environment? Yes * Has this patient been hospitalized within the prior 30 days at any hospital? No Coverage Notice Reviewer: [email or web address] Juana Simmons Notice Issued Date-Time: 07/31/2018 13:52 Notice Type: Patient Choice Letter Notice Delivered To: Patient Relationship to Patient: Self Road Patcher Name: Delivery Method: HAND - Hand Delivered Keely Days: Prior Verbal Notification: Recipient Understood Notice: Yes Recipient Signature: Yes Med Rec Note Co-signed by Attending: Coverage Notice Comment: Reviewer: [email or web address] Simmons Notice Issued Date-Time: 08/01/2018 14:05 Notice Type: IM Discharge Notice Notice Delivered To: Patient Relationship to Patient: Self Road Patcher Name: Delivery Method: HAND - Hand Delivered Keely Days: Prior Verbal Notification: Recipient Understood Notice: Yes Recipient Signature: Yes Med Rec Note Co-signed by Attending: Coverage Notice Comment: Last DP export: 07/31/18 1:06 Patient Name: KALEIGH GANT Page 49949 at 1439 All edits/amendments must be made on the electronic document DICTATION DATE: 08/01/181437 FIBER MACHINE TENDER: NIURKA 08/01/181437 RPT#: [id number] DC DATE: STATUS: ADM IN [facility] [address] [place] [address] END OF REPORT
--- NOTE | ~2018-07-21 | MORECARE ---
CASE MANAGEMENT DISCHARGE SUMMARY PATIENT: KALEIGH GANT UNIT: [id number] ADM DATE: 07/21/18 AGE: 88 : 32 SEX: F ROOM/BED: D.1205 AUTHOR: ODALYS JUAN PHYSICIAN: REFERRING PHYSICIAN: CAM OSORIO DO DATE OF SERVICE: 07/25/18 Discharge Plan Patient Name: KALEIGH GANT [facility] [facility] 1930 Planned Disposition: Inpatient Rehab Anticipated Discharge Date: Discharge Date: Expected LOS: Initial Reviewer: [email or web address] Initial Review Date: 07/24/2018 Generated: 07/25/18 2:33 pm Patient Name: KALEIGH GANT Page 42638 at 1333 All edits/amendments must be made on the electronic document DICTATION DATE: 07/25/18 133 PRESSER HAND: NIURKA 07/25/18 1332 RPT#: [id number] DC DATE: STATUS: ADM IN [facility] [address] [place] [address] END OF REPORT
--- NOTE | ~2018-07-21 | MORECARE ---
CASE MANAGEMENT DISCHARGE SUMMARY PATIENT: KALEIGH GANT UNIT: [id number] ADM DATE: 07/21/18 AGE: 88 : 32 SEX: F ROOM/BED: D.1205 AUTHOR: ODALYS JUAN PHYSICIAN: REFERRING PHYSICIAN: CAM OSORIO DO DATE OF SERVICE: 07/25/18 Discharge Plan Patient Name: KALEIGH GANT Facility: [facility]:[place] : 1930 Planned Disposition: Inpatient Rehab Anticipated Discharge Date: Discharge Date: Expected LOS: Initial Reviewer: [email or web address] Initial Review Date: 07/24/2018 Generated: 07/25/18 2:42 pm Comments DCP- Discharge Planning Updated by [email or web address]: Sharon Cao on 07/25/18 12:[address] Late Entry 07/24/18 @ 1825 Patient Name: KALEIGH GANT Admission Status: ER Accout number: [id number] Admission Date: 07-21-2018 : 1930 Admission Diagnosis:RIGHT LOWER QUADRANT PAIN Attending: CAM OSORIO Current LOS: 4 Anticipated DC Date: Planned Disposition: Inpatient Rehab Primary Insurance: [facility] MEDIC[facility] SOLUTIONS Discharge Planning Comments: Sfdc Architect: Sharon Cao DCPIA - Discharge Planning Initial Assessment Updated by [email or web address]: Sharon Cao on 07/25/18 1:35 pm * Is the patient Alert and Oriented? Yes * How many steps to enter\exit or inside your home? 4-5 * PCP Juan Pablo * Pharmacy [place] * Preadmission Environment Home Alone * ADLs Independent * Equipment Cane * Other Equipment Walker * List name and contact numbers for known caregivers / representatives who currently or will assist patient after discharge: Jona Keen daughter [phone] Viki Aguilera daughter [phone] * Verbal permission to speak to the caregivers and representatives has been obtained from the patient. Yes * Community resources currently utilized None * Additional services required to return to the preadmission environment? No * Can the patient safely return to the preadmission environment? Yes * Has this patient been hospitalized within the prior 30 days at any hospital? No Last DP export: 12/5/18 12:33 p Patient Name: KALEIGH GANT Page [id number] at 1342 All edits/amendments must be made on the electronic document DICTATION DATE: 07/25/18 134 GRADUATE FELLOW: NIURKA 07/25/18 1341 RPT#: [id number] DC DATE: STATUS: ADM IN [facility] [address] [place] [address] END OF REPORT
[2018-07-21] MEDS ORDERED: VITAMIN D31000 UNIT PO (09:27)
[2018-07-21 09:53] LABS: BASOPHILS 0.4 % (0-2); HEMATOCRIT 38.8 % (36.0-48.0); HEMOGLOBIN 13.2 g/dL (12-16); IMMATURE GRANULOCYTES 0.3 % (0-5); LYMPHOCYTES 22.6 % (15-50); MCH 30.6 pg (26.0-34.0); MEAN PLATELET VOLUME 10.5 fL (7.4-10.4); MONOCYTES 6.3 % (2-11); NEUTROPHILS 68.4 % (40-80); PLATELET COUNT 277 10x3/uL (130-400); RBC 4.31 10x6/uL (4.00-5.40); RDW 13.8 % (11.5-14.5); WBC 7.5 10x3/uL (4.8-10.8)
[2018-07-21 10:02] LABS: APPEARANCE CLEAR (CLEAR); COLOR YELLOW (YELLOW)
[2018-07-21 10:03] LABS: BILIRUBIN NEGATIVE (NEGATIVE); GLUCOSE NEGATIVE (NEGATIVE); KETONE NEGATIVE (NEGATIVE); NITRITE NEGATIVE (NEGATIVE); PROTEIN NEGATIVE (NEGATIVE); SPECIFIC GRAVITY 1.005 (1.005-1.020); UROBILINOGEN NORMAL (NORMAL)
[2018-07-21 10:05] LABS: ALBUMIN 3.7 g/dL (3.4-5.0); BILIRUBIN - TOTAL 0.8 mg/dL (0.2-1.3); CALCIUM 9.5 mg/dL (8.5-10.1); CARBON DIOXIDE 27.8 mmol/L (21.0-32.0); CREATININE - SERUM 1.1 mg/dL (0.6-1.3); POTASSIUM - SERUM 3.8 mmol/L (3.5-5.1); PROTEIN - SERUM 7.9 g/dL (6.4-8.2)
[2018-07-22 04:00] VITALS: BP 142/54
[2018-07-22 06:31] LABS: BASOPHILS 0.3 % (0-2); EOSINOPHILS 1.5 % (0-7); HEMATOCRIT 31.1 % (36.0-48.0); IMMATURE GRANULOCYTES 0.2 % (0-5); LYMPHOCYTES 16.7 % (15-50); MCH 30.1 pg (26.0-34.0); MCHC 33.4 g/dL (31.0-37.0); MCV 89.9 fL (80.0-100.0); MEAN PLATELET VOLUME 10.2 fL (7.4-10.4); MONOCYTES 8.5 % (2-11); NEUTROPHILS 72.8 % (40-80); RBC 3.46 10x6/uL (4.00-5.40); RDW 13.8 % (11.5-14.5); WBC 5.9 10x3/uL (4.8-10.8)
[2018-07-22 06:54] LABS: HEMOGLOBIN 10.4 g/dL (12-16); PLATELET COUNT 214 10x3/uL (130-400)
[2018-07-22 07:16] LABS: ANION GAP 12.9 mmol/L (8-16); CALCIUM 8.3 mg/dL (8.5-10.1); POTASSIUM - SERUM 3.9 mmol/L (3.5-5.1)
[2018-07-22 07:55] VITALS: BP 179/62
[2018-07-22 12:54] VITALS: BP 176/65
[2018-07-22 16:49] VITALS: BP 172/66
[2018-07-22 21:34] VITALS: BP 177/66
[2018-07-23 01:57] VITALS: BP 180/67
[2018-07-23 11:55] VITALS: BMI 23.4
[2018-07-23 12:05] VITALS: BP 121/85
[2018-07-23 19:00] VITALS: BP 207/68
[2018-07-24 01:58] VITALS: BP 171/58
[2018-07-24 02:25] VITALS: BP 171/58
[2018-07-24 05:09] VITALS: BP 162/57
[2018-07-24 06:23] LABS: BASOPHILS 0.5 % (0-2); EOSINOPHILS 2.5 % (0-7); HEMOGLOBIN 10.8 g/dL (12-16); LYMPHOCYTES 16.7 % (15-50); MCH 30.5 pg (26.0-34.0); MCHC 33.8 g/dL (31.0-37.0); MCV 90.4 fL (80.0-100.0); MEAN PLATELET VOLUME 10.7 fL (7.4-10.4); MONOCYTES 8.8 % (2-11); NEUTROPHILS 71.5 % (40-80); PLATELET COUNT 241 10x3/uL (130-400); RBC 3.54 10x6/uL (4.00-5.40); RDW 13.9 % (11.5-14.5); WBC 6.4 10x3/uL (4.8-10.8)
[2018-07-24 07:20] LABS: ANION GAP 12.4 mmol/L (8-16); CARBON DIOXIDE 25.4 mmol/L (21.0-32.0); CREATININE - SERUM 1.1 mg/dL (0.6-1.3); POTASSIUM - SERUM 3.8 mmol/L (3.5-5.1)
[2018-07-24 10:11] VITALS: BP 136/77
[2018-07-24 16:07] VITALS: BP 125/70
[2018-07-24 20:30] VITALS: BP 186/62
[2018-07-25 01:06] VITALS: BP 199/77
[2018-07-25 03:29] VITALS: BP 180/76
[2018-07-25 06:26] LABS: ANION GAP 16.4 mmol/L (8-16); CALCIUM 8.3 mg/dL (8.5-10.1); CARBON DIOXIDE 22.6 mmol/L (21.0-32.0); CREATININE - SERUM 1.1 mg/dL (0.6-1.3)
[2018-07-25 06:28] LABS: BASOPHILS 0.4 % (0-2); EOSINOPHILS 2.2 % (0-7); HEMATOCRIT 32.7 % (36.0-48.0); HEMOGLOBIN 11.1 g/dL (12-16); IMMATURE GRANULOCYTES 0.1 % (0-5); LYMPHOCYTES 15.4 % (15-50); MCH 30.2 pg (26.0-34.0); MCHC 33.9 g/dL (31.0-37.0); MCV 89.1 fL (80.0-100.0); MEAN PLATELET VOLUME 10.8 fL (7.4-10.4); MONOCYTES 9.5 % (2-11); NEUTROPHILS 72.4 % (40-80); PLATELET COUNT 252 10x3/uL (130-400); RBC 3.67 10x6/uL (4.00-5.40); RDW 13.9 % (11.5-14.5)
[2018-07-25 08:11] VITALS: BP 149/55
[2018-07-25 11:30] VITALS: BP 169/57
[2018-07-25 11:33] LABS: % SATURATION 14 % (15-55); IRON 43 ug/dl (35-150); TOTAL IRON BIND CAPACITY 287 ug/dl (260-445); UNSAT IRON BIND CAPACITY 244 ug/dl (150-375)
[2018-07-25 15:35] VITALS: BP 175/70
[2018-07-25 18:07] VITALS: Ht 152.4 cm; Wt 54.4 kg
[2018-07-25 20:14] VITALS: BP 160/69
[2018-07-26] VITALS: BP 175/57
[2018-07-26 04:00] VITALS: BP 162/78
[2018-07-26 05:55] LABS: BASOPHILS 0 % (0-2); EOSINOPHILS 0 % (0-7); HEMATOCRIT 34.3 % (36.0-48.0); HEMOGLOBIN 11.6 g/dL (12-16); IMMATURE GRANULOCYTES 0.3 % (0-5); LYMPHOCYTES 8.3 % (15-50); MCH 30.1 pg (26.0-34.0); MCHC 33.8 g/dL (31.0-37.0); MCV 89.1 fL (80.0-100.0); MEAN PLATELET VOLUME 10.8 fL (7.4-10.4); NEUTROPHILS 90.4 % (40-80); PLATELET COUNT 273 10x3/uL (130-400); RBC 3.85 10x6/uL (4.00-5.40)
[2018-07-26 06:07] LABS: ANION GAP 14.7 mmol/L (8-16); CALCIUM 9.3 mg/dL (8.5-10.1); CARBON DIOXIDE 22.9 mmol/L (21.0-32.0); CREATININE - SERUM 0.9 mg/dL (0.6-1.3); POTASSIUM - SERUM 3.6 mmol/L (3.5-5.1)
[2018-07-26 08:05] VITALS: BP 184/68
[2018-07-26 09:19] LABS: FOLATE (FOLIC ACID) - SERUM 18.4 ng/mL (>3.0)
[2018-07-26 10:38] VITALS: BP 173/69
[2018-07-26 14:58] VITALS: BP 209/88
[2018-07-26 20:00] VITALS: BP 92/52
[2018-07-27] VITALS: BP 168/62
[2018-07-27 04:00] VITALS: BP 158/62
[2018-07-27 05:28] LABS: ANION GAP 17.3 mmol/L (8-16); CALCIUM 8.5 mg/dL (8.5-10.1); CARBON DIOXIDE 20.4 mmol/L (21.0-32.0); CREATININE - SERUM 1.1 mg/dL (0.6-1.3); POTASSIUM - SERUM 3.7 mmol/L (3.5-5.1)
[2018-07-27 05:29] LABS: BASOPHILS 0.1 % (0-2); EOSINOPHILS 0 % (0-7); HEMATOCRIT 32.3 % (36.0-48.0); HEMOGLOBIN 10.9 g/dL (12-16); IMMATURE GRANULOCYTES 0.3 % (0-5); LYMPHOCYTES 14.4 % (15-50); MCHC 33.7 g/dL (31.0-37.0); MEAN PLATELET VOLUME 10.7 fL (7.4-10.4); MONOCYTES 9.1 % (2-11); NEUTROPHILS 76.1 % (40-80); PLATELET COUNT 328 10x3/uL (130-400); RBC 3.63 10x6/uL (4.00-5.40); RDW 14.2 % (11.5-14.5); WBC 10.6 10x3/uL (4.8-10.8)
[2018-07-27 07:41] VITALS: BP 157/83
[2018-07-27 10:40] VITALS: BP 203/75
[2018-07-27 14:43] VITALS: BP 156/52
[2018-07-27 20:00] VITALS: BP 169/62
[2018-07-28] VITALS: BP 174/69
[2018-07-28 05:29] VITALS: BP 195/67
[2018-07-28 06:05] LABS: BASOPHILS 0.2 % (0-2); EOSINOPHILS 1.7 % (0-7); HEMATOCRIT 31.3 % (36.0-48.0); HEMOGLOBIN 10.6 g/dL (12-16); IMMATURE GRANULOCYTES 0.3 % (0-5); LYMPHOCYTES 13.9 % (15-50); MCHC 33.9 g/dL (31.0-37.0); MCV 88.7 fL (80.0-100.0); MEAN PLATELET VOLUME 10.2 fL (7.4-10.4); NEUTROPHILS 74.9 % (40-80); PLATELET COUNT 278 10x3/uL (130-400); RBC 3.53 10x6/uL (4.00-5.40); RDW 14.5 % (11.5-14.5); WBC 9.7 10x3/uL (4.8-10.8)
[2018-07-28 06:24] LABS: ANION GAP 11.7 mmol/L (8-16); CALCIUM 8.2 mg/dL (8.5-10.1); CARBON DIOXIDE 23.4 mmol/L (21.0-32.0)
[2018-07-28 06:26] LABS: POTASSIUM - SERUM 3.1 mmol/L (3.5-5.1)
[2018-07-28 08:37] VITALS: BP 196/66
[2018-07-28 20:00] VITALS: BP 170/67
[2018-07-29] VITALS: BP 112/46; BP 217/74
[2018-07-29 06:00] VITALS: BP 214/89
[2018-07-29 06:45] LABS: BASOPHILS 0.1 % (0-2); EOSINOPHILS 0.3 % (0-7); HEMOGLOBIN 12.1 g/dL (12-16); IMMATURE GRANULOCYTES 0.4 % (0-5); LYMPHOCYTES 14.6 % (15-50); MCH 30.3 pg (26.0-34.0); MCHC 34.6 g/dL (31.0-37.0); MCV 87.7 fL (80.0-100.0); MEAN PLATELET VOLUME 10.6 fL (7.4-10.4); MONOCYTES 8.5 % (2-11); NEUTROPHILS 76.1 % (40-80); PLATELET COUNT 331 10x3/uL (130-400); RBC 3.99 10x6/uL (4.00-5.40); RDW 14.4 % (11.5-14.5); WBC 10.9 10x3/uL (4.8-10.8)
[2018-07-29 06:52] LABS: ANION GAP 13.1 mmol/L (8-16); CALCIUM 8.1 mg/dL (8.5-10.1); CARBON DIOXIDE 23.5 mmol/L (21.0-32.0); POTASSIUM - SERUM 3.6 mmol/L (3.5-5.1)
[2018-07-29 07:00] VITALS: BP 199/73
[2018-07-29 11:00] VITALS: BP 171/65
[2018-07-29 15:00] VITALS: BP 161/53
[2018-07-29 20:00] VITALS: BP 218/99
[2018-07-30 00:29] VITALS: BP 200/70
[2018-07-30 04:00] VITALS: BP 228/97
[2018-07-30 05:30] VITALS: BP 209/67
[2018-07-30 07:54] VITALS: BP 198/71
[2018-07-30 15:37] LABS: BASOPHILS 0.3 % (0-2); EOSINOPHILS 1.7 % (0-7); HEMATOCRIT 34.8 % (36.0-48.0); HEMOGLOBIN 11.9 g/dL (12-16); IMMATURE GRANULOCYTES 0.4 % (0-5); LYMPHOCYTES 11.6 % (15-50); MCH 30.1 pg (26.0-34.0); MCHC 34.2 g/dL (31.0-37.0); MCV 88.1 fL (80.0-100.0); MEAN PLATELET VOLUME 10.2 fL (7.4-10.4); MONOCYTES 5.6 % (2-11); NEUTROPHILS 80.4 % (40-80); PLATELET COUNT 286 10x3/uL (130-400); RBC 3.95 10x6/uL (4.00-5.40); WBC 10.3 10x3/uL (4.8-10.8)
[2018-07-30 16:01] LABS: ANION GAP 10.5 mmol/L (8-16); CALCIUM 8.2 mg/dL (8.5-10.1); CARBON DIOXIDE 27.6 mmol/L (21.0-32.0); CREATININE - SERUM 0.9 mg/dL (0.6-1.3); POTASSIUM - SERUM 3.1 mmol/L (3.5-5.1)
[2018-07-30 20:37] VITALS: BP 190/79
[2018-07-31] VITALS: BP 202/88
[2018-07-31 04:00] VITALS: BP 180/61
[2018-07-31 05:03] LABS: BASOPHILS 0.2 % (0-2); EOSINOPHILS 2.4 % (0-7); HEMATOCRIT 31.4 % (36.0-48.0); HEMOGLOBIN 10.7 g/dL (12-16); IMMATURE GRANULOCYTES 0.2 % (0-5); LYMPHOCYTES 18.1 % (15-50); MCH 29.9 pg (26.0-34.0); MCHC 34.1 g/dL (31.0-37.0); MCV 87.7 fL (80.0-100.0); MEAN PLATELET VOLUME 10.6 fL (7.4-10.4); MONOCYTES 10.4 % (2-11); NEUTROPHILS 68.7 % (40-80); PLATELET COUNT 283 10x3/uL (130-400); RBC 3.58 10x6/uL (4.00-5.40); RDW 13.9 % (11.5-14.5); WBC 8.8 10x3/uL (4.8-10.8)
[2018-07-31 05:12] LABS: ANION GAP 8.3 mmol/L (8-16); CALCIUM 7.4 mg/dL (8.5-10.1); CARBON DIOXIDE 31.5 mmol/L (21.0-32.0); CREATININE - SERUM 0.9 mg/dL (0.6-1.3)
[2018-07-31 05:35] LABS: POTASSIUM - SERUM 2.8 mmol/L (3.5-5.1)
[2018-07-31 13:28] VITALS: BP 138/68
[2018-07-31 17:08] VITALS: BP 169/63
[2018-07-31 20:00] VITALS: BP 172/59
[2018-08-01] VITALS: BP 163/44
[2018-08-01 05:16] VITALS: BP 170/52
[2018-08-01 06:13] LABS: BASOPHILS 0.2 % (0-2); EOSINOPHILS 1.9 % (0-7); HEMATOCRIT 33.9 % (36.0-48.0); HEMOGLOBIN 11.6 g/dL (12-16); IMMATURE GRANULOCYTES 0.2 % (0-5); LYMPHOCYTES 16.1 % (15-50); MCH 30.1 pg (26.0-34.0); MCHC 34.2 g/dL (31.0-37.0); MCV 88.1 fL (80.0-100.0); MEAN PLATELET VOLUME 10.7 fL (7.4-10.4); MONOCYTES 11.3 % (2-11); NEUTROPHILS 70.3 % (40-80); PLATELET COUNT 322 10x3/uL (130-400); RBC 3.85 10x6/uL (4.00-5.40); WBC 8.5 10x3/uL (4.8-10.8)
[2018-08-01 06:31] LABS: ALBUMIN 2.8 g/dL (3.4-5.0); ANION GAP 13.2 mmol/L (8-16); BILIRUBIN - TOTAL 0.99 mg/dL (0.2-1.3); CREATININE - SERUM 0.8 mg/dL (0.6-1.3); POTASSIUM - SERUM 3.2 mmol/L (3.5-5.1)
[2018-08-01 07:58] VITALS: BP 161/60
[2018-08-01] MEDS ORDERED: COZAAR50 MG PO (11:03)
[2018-08-01] MEDS ORDERED: NORVASC10 MG PO (11:03)
[2018-08-01] MEDS ORDERED: CATAPRES0.1 MG PO (11:03)
[2018-08-01 11:37] VITALS: BP 169/60
== END 2018-08-01 16:01 | disposition home or self-care (01) | DRG 392 ==
LOC: D.ER 09:06 → D.M3 15:42 → D.EDHOLD 15:42 → D.M3 16:27
PROVIDERS: Family Medicine; Family Medicine Adult Medicine; Internal Medicine Gastroenterology; Internal Medicine Nephrology
PROC: 0DJ08ZZ Inspection of Upper Intestinal Tract, Via Natural or Artificial Opening Endoscopic (ICD-10-PCS; principal; 2018-07-31)
DX: K57.92 Diverticulitis of intestine, part unspecified, without perforation or abscess without bleeding (principal); I16.9 Hypertensive crisis, unspecified; N17.9 Acute kidney failure, unspecified; M48.56XA Collapsed vertebra, not elsewhere classified, lumbar region, initial encounter for fracture; Z66 Do not resuscitate; M81.0 Age-related osteoporosis without current pathological fracture; K44.9 Diaphragmatic hernia without obstruction or gangrene; G89.29 Other chronic pain; M41.9 Scoliosis, unspecified; I25.10 Atherosclerotic heart disease of native coronary artery without angina pectoris; D64.9 Anemia, unspecified; K21.9 Gastro-esophageal reflux disease without esophagitis; K20.9 Esophagitis, unspecified; K29.70 Gastritis, unspecified, without bleeding; K29.80 Duodenitis without bleeding

== ENCOUNTER 2018-08-05 00:52 | Emergency (ER) | payer MEDICARE ==
[~2018-08-05] VITALS: Ht 152.4 cm; Wt 54.5 kg
[~2018-08-05 00:52] MED LIST changes: +COZAAR50 MG PO; +NORVASC10 MG PO; +VITAMIN D31000 UNIT PO
[2018-08-05 01:05] VITALS: Ht 152.4 cm; Wt 54.5 kg
[2018-08-05 02:22] VITALS: BP 150/82
== END 2018-08-05 04:27 | disposition home or self-care (01) ==
LOC: D.ER 00:52
DX: M54.5 Low back pain (principal)

== ENCOUNTER → 2018-09-28 09:25 | Outpatient (CLI) | payer MEDICARE ==
[2018-08-05 01:05] VITALS: BMI 23.4
== END | disposition home or self-care (01) ==
LOC: D.MRI 09:00
DX: M48.56XA Collapsed vertebra, not elsewhere classified, lumbar region, initial encounter for fracture (principal)

== ENCOUNTER 2019-03-04 17:13 | Inpatient (IN) | payer MEDICARE ==
[~2019-03-04] VITALS: Ht 152.4 cm; Wt 56.6 kg
--- NOTE | ~2019-03-04 | HEMODYNAMI ---
PATIENT:KALEIGH GANT MEDICAL RECORD: [id number] : 34 LOCATION:[place].2214 ADMISSION DATE: 03/04/19 Generatedon:03/08/201915:37 Patient name: KALEIGH GANT Patient #: [id number] SSN: : 1930 Date of study: 03/08/2019 Page: Of Hemodynamic Procedure Report Patient Data Patient Demographics Procedure consent was obtained First Name: KALEIGH Gender: Female Last Name: STALIN : 1930 Middle Initial: B Age: 88 year(s) Patient #: [id number] Race: Additional ID: [id number] Contact details [address]: [address] [place] [address] State: [place] City: [place] Zip code: [address] Past Medical History Allergies Allergen Reaction Date Comments Reported Sulfa drugs 03/08/2019 Admission Admission Data Admission Date: 03/04/2019 Admission Time: 22:24 Room #: .[facility] [place] Procedure Procedure Types Cath Procedure Peripheral Cath Diagnostic Procedure Abd/Extremity Extremities Bilat Lower Extremity Procedure Description Procedure Date Procedure Date: 03/08/2019 Procedure Start Time: 13:35 Procedure Staff Name Function Diego Rubin MD Performing Physician Verenice Bond RN Nurse Leonarda Robison RN Nurse Layo Reed RT Scrub Gala Ross RT Tire Molder Procedure Data Cath Procedure Fluoroscopy Diagnostic fluoroscopy Total fluoroscopy Time: time: 17.7 min 17.7 min Diagnostic fluoroscopy Total fluoroscopy dose: 320 dose: 320 mGy mGy Contrast Material Contrast Material Type Amount (ml) Isovue 300 180 Entry Location Entry Primary Successful Side Size Upsize Upsize Entry Closure Succes sful Closure Location (Fr) 1 (Fr) 2 (Fr) Remarks Device Remarks Femoral Exoseal artery Procedure Medications Medication Administration Route Dosage Heparin Flush Bag added to field 3 bags (1000units/500ml NS) Lidocaine 1% added to field 20 Heparin Bolus I.V. 4000 units Nitroglycerin IC/IA I.A. 300 mcg Hemodynamics Rest Heart Rate: 70 (bpm) Snapshots Pre Cath Intra NCS Post Cath Vital Signs Time Heart Resp SPO2 etCO2 NIBP (mmHg) Rhythm Pain Sedation Rate (ipm) (%) (mmHg) Status Level (bpm) 13:12:41 63 22 100 16.5 173/67(131) NSR 0 (11) 10(A) , No pain 13:17:11 64 20 96 0 157/57(108) NSR 0 (11) 10(A) , No pain 13:21:33 57 19 93 0 131/60(101) NSR 0 (11) 10(A) , No pain 13:25:51 51 13 98 11.2 111/48(92) NSR 0 (11) 10(A) , No pain 13:29:59 55 11 98 16.5 123/54(88) NSR 0 (11) 10(A) , No pain 13:34:11 51 13 99 12.7 117/52(97) NSR 0 (11) 10(A) , No pain 13:38:23 57 14 99 17.2 121/50(91) NSR 0 (11) 10(A) , No pain 13:42:35 57 13 98 9.7 115/56(92) NSR 0 (11) 10(A) , No pain 13:46:47 55 14 98 22.5 108/49(86) NSR 0 (11) 10(A) , No pain 13:50:54 60 13 98 24.7 115/51(97) NSR 0 (11) 10(A) , No pain 13:55:06 57 14 97 18 106/47(87) NSR 0 (11) 10(A) , No pain 13:59:14 59 13 97 22.5 111/53(90) NSR 0 (11) 10(A) , No pain 14:03:24 58 13 97 24 122/51(85) NSR 0 (11) 10(A) , No pain 14:07:36 59 14 97 23.2 114/55(92) NSR 0 (11) 10(A) , No pain 14:11:46 57 14 97 15.7 120/54(105) NSR 0 (11) 10(A) , No pain 14:15:58 61 14 98 24 113/54(92) NSR 0 (11) 10(A) , No pain 14:20:06 62 15 98 0 128/57(98) NSR 0 (11) 10(A) , No pain 14:24:20 62 14 94 24.7 138/56(109) NSR 0 (11) 10(A) , No pain 14:28:32 68 15 92 9 147/71(112) NSR 0 (11) 10(A) , No pain 14:32:56 52 17 98 20.2 96/43(75) NSR 0 (11) 10(A) , No pain 14:37:02 46 15 100 24 97/43(74) NSR 0 (11) 10(A) , No pain 14:41:06 54 14 100 26.2 114/50(89) NSR 0 (11) 10(A) , No pain 14:45:15 57 15 100 28.5 120/55(93) NSR 0 (11) 10(A) , No pain 14:49:25 58 15 99 12.7 135/56(102) NSR 0 (11) 10(A) , No pain 14:53:39 61 15 99 18.7 152/62(117) NSR 0 (11) 10(A) , No pain 14:58:01 60 15 96 0 113/55(92) NSR 0 (11) 10(A) , No pain 15:02:11 57 14 100 15.7 118/50(88) NSR 0 (11) 10(A) , No pain 15:06:23 58 14 99 17.2 122/53(99) NSR 0 (11) 10(A) , No pain 15:10:37 57 13 96 18 104/47(85) NSR 0 (11) 10(A) , No pain 15:14:47 57 14 96 20.2 98/44(74) NSR 0 (11) 10(A) , No pain 15:18:55 57 16 97 13.5 96/41(70) NSR 0 (11) 10(A) , No pain 15:22:59 57 17 97 18 109/49(78) NSR 0 (11) 10(A) , No pain 15:27:05 76 18 97 13.5 114/62(95) NSR 0 (11) 10(A) , No pain 15:31:14 58 21 92 24 114/51(91) NSR 0 (11) 10(A) , No pain 15:35:14 0 No Cuff NSR 0 (11) 10(A) , No pain Medications Time Medication Route Dose Verified Delivered Reason Notes Effe ctiveness by by 13:12:06 Heparin Flush added 3 Diego Cortez used for Bag to bags Caryn Rubin MD procedure (1000units/500ml field PERRIN NS) 13:12:17 Lidocaine 1% added 20ml Diego Cortez for local to vial Caryn Rubin MD anesthetic field PERRIN 14:14:51 Heparin Bolus I.V. 4000 Diego Brower Per units Ricki Rubin RN physician 15:10:40 Nitroglycerin I.A. 300 Diego Cortez IC/IA mcg Caryn Rubin MD MD Procedure Log Time Note 12:43:50 Use device set IR Diagnostic 13:02:23 Time tracking: Regular hours (M-F 7:00 - 5:00) 13:02:49 Plan of Care:Hemodynamics will remain stable., Cardiac rhythm will remain stable., Comfort level will be maintained., Respiratory function will remain adequate., Patient/ family verbilizes understanding of procedure., Procedure tolerated without complication., Recovers from procedure without complications.. 13:03:00 Patient received from Med/Surg to IR Alert and oriented. Tansferred to table in Supine position. 13:03:06 Signed procedure consent form obtained from patient. 13:03:15 H&P Date Dictated: 03/08/2019 Within 30 days and on chart.. 13:03:18 Pre-procedure instructions explained to patient. 13:03:19 Pre-op teaching completed and patient verbalized understanding. 13:03:21 Family in waiting room. 13:03:23 Patient NPO since Midnight. 13:03:41 Patient allergic to Sulfa drugs 13:03:46 Is the patient allergic to Iodine/contrast media? No. 13:03:49 Is patient on blood thinner?No 13:05:42 Patient diabetic? No. 13:05:43 - 13:05:44 ----Pre-sedation anethsthesia assessment.----see anesthesia notes for monitoring of patient during procedure. 13:06:14 - 13:06:21 Pre procedure: right dorsailis pedis pulse Doppler 13:06:26 Pre procedure: left dorsailis pedis pulse Doppler 13:06:30 Pre procedure: right posterior tibial pulse Doppler 13:06:34 Pre procedure: left posterior tibial pulse Doppler 13:06:42 IV patent on arrival in left hand with D5/.45%NaCl at KVO. 13:06:48 Right groin area was prepped with chlora-prep and draped in sterile fashion 13:06:53 - 13:07:03 TUBING Contrast Injection High Pressure ([id number]) opened to sterile field. 13:07:04 SHEATH 5FR Truro (XTA115) opened to sterile field. 13:07:06 Micropuncture VSI 4FR kit opened to sterile field. 13:07:07 DOC .035 wire (U89510) opened to sterile field. 13:07:07 RAHMAN 260 wire (C50810) opened to sterile field. 13:07:08 Tegaderm 4 x 4 (1626W) opened to sterile field. 13:07:09 Sterile Angiographic Pack opened to sterile field. 13:07:10 Bag Decanter () opened to sterile field. 13:07:11 ACIST Manifold (00744) opened to sterile field. 13:07:13 ACIST Hand Control (02264) opened to sterile field. 13:07:14 ACIST Syringe (33332) opened to sterile field. 13:07:37 CHOICE PT Floppy Straight 300cm guide wire ([id number]) opened to sterile field. 13:07:52 SHEATH 6FR Destination (RSR01) opened to sterile field. 13:08:06 - 13:11:24 Correct patient and procedure confirmed by team. 13:11:25 ECG and BP/O2 sat monitors applied to patient. 13:11:26 Vital chart was started 13:11:28 Baseline sample Acquired. 13:11:31 Full Disclosure recording started 13:11:32 - 13:12:06 Heparin Flush Bag (1000units/500ml NS) 3 bags added to field was administered by Diego Rubin MD; used for procedure; 13:12:17 Lidocaine 1% 20ml vial added to field was administered by Diego Rubin MD; for local anesthetic; 13:32:20 Fire Safety Assessment: A--An alcohol-based skin anteseptic being used preoperatively., C--Open oxygen or nitrous oxide is being used. 13:34:27 Physician arrived 13:35:02 --------ALL STOP TIME OUT------ 13:35:03 Final Timeout: patient, procedure, and site verified with staff and physician. All members of the team are in agreement. 13:35:09 Procedure started. 13:35:12 Local anesthetic to right femoral artery with Lidocaine 1% by Diego Rubin MD.INITIAL ACCESS ONLY 13:35:16 Arterial access obtained using ultrasound guidance. 13:47:07 GLIDE WIRE ANGLE 180cm (TW0883) opened to sterile field. 13:47:07 GLIDE CATHETER 5FR ANGLED 65cm (CG507) opened to sterile field. 13:47:19 TORQUE DEVICE PLASTIC .038 ( TD01) opened to sterile field. 13:57:03 CXI SUPPORT .035 135 CM STR catheter (D87623) opened to sterile field. 13:57:04 ROADRUNNER .035 260 glide wire (W38776) opened to sterile field. 14:06:30 GLIDE WIRE ANGLE 260cm (II7006) opened to sterile field. 14:10:18 INFLATOR BasixTOUCH (GJ3583) opened to sterile field. 14:11:22 Inflate balloon Inflation number: 1 A Evercross 4 x 100 x 135 Balloon ([id number]) was prepped and advanced across the Undefined1 , then inflated . 14:14:51 Heparin Bolus 4000 units I.V. was administered by Leonarda Robison RN; Per physician; 14:20:00 Inflate balloon Inflation number: 2 A Evercross 3 x [id number]) was prepped and advanced across the Undefined1 , then inflated . 14:31:28 Inflate balloon Inflation number: 1 A CHOCOLATE 3.0 x 120 x 150 balloon ([id number]) was prepped and advanced across the Undefined2 , then inflated . 14:36:26 Inflate balloon Inflation number: 1 A CHOCOLATE 3.0 x 120 x 150 balloon ([id number]) was prepped and advanced across the Undefined3 , then inflated . 14:48:31 Place stent Inflation Number: 3 A PROTEGE STENT 5 X 120 X 120 ([id number]) was prepped and advanced across the Undefined1 . The stent was deployed at 0 PAVEL for 0:00 (min:sec) . 14:55:04 Navicross Support Straight .035 150cm catheter (CV68563) opened to sterile field. 15:08:27 SHEATH 6FR Truro (SWE242) opened to sterile field. 15:10:40 Nitroglycerin IC/IA 300 mcg I.A. was administered by Diego Rubin MD; ; 15:14:11 EXOSEAL 6Fr (EX600) opened to sterile field. 15:14:44 Sheath removed intact; hemostasis achieved with Exoseal to the Femoral artery. 15:14:44 A sheath was inserted into the Femoral artery 15:14:50 Procedure ended.(Physican Out) 15:15:22 Fluoroscopy time 17.70 minutes. 15:15:28 Flurop Dose total: 320 15:15:28 Fluoroscopy dose: 320 mGy 15:15:34 Contrast amount:Isovue 300 180ml. 15:15:39 Procedure and supply charges have been captured, reviewed, submitted an d are correct. 15:26:59 Report given to Med/Surg. 15:37:38 Vital chart was stopped Intervention Summary Intervention Notes Time ActionType Lesion and Equipment Used Action# Pressure Duration Attributes 14:11:22 Inflate Undefined1 Evercross 4 x 100 1 0 00:00 balloon x 135 Balloon ([id number]) 14:20:00 Inflate Undefined1 Evercross 3 x 100 2 0 00:00 balloon x 135 Balloon ([id number]) 14:31:28 Inflate Undefined2 CHOCOLATE 3.0 x 1 0 00:00 balloon 120 x 150 balloon ([id number]) 14:36:26 Inflate Undefined3 CHOCOLATE 3.0 x 1 0 00:00 balloon 120 x 150 balloon ([id number]) 14:48:31 Place stent Undefined1 PROTEGE STENT 5 X 3 0 00:00 120 X 120 ([id number]) Device Usage Item Name Manufacture Quantity Catalog Number [facility] Part Curr ent Minimal Lot# / Charge Number Stock Stock Serial# Code TUBING Contrast Merit 1 [id number] 8819 23 5 Injection High Medical Pressure ([id number]) SHEATH 5FR Terumo 1 ACU742 244087 728469 8576 71 5 Truro (NZD213) Micropuncture VSI VSI VASCULAR 1 7266V 256130 1576 87 5 4FR kit SOLUTIONS DOC .035 wire Cook Medical 1 D39655 498848 0243 65 5 (B27415) RAHMAN 260 wire [employer] Medical 1 G69506 263512 52446 9995 57 5 (I28443) Tegaderm 4 x 4 3M 1 1626W 876825 714242 3519 60 5 (1626W) Sterile Cardinal 1 [id number] 796220 6954 79 5 Angiographic Pack Health Bag Decanter Microtek 1 831649 50177 9864 75 5 () Medical Inc. ACIST Manifold Acist 1 10071 590752 777985 5747 60 5 (04406) Medical Systems Inc ACIST Hand Control Acist 1 53868 595568 692135 8276 43 5 (77306) Medical Systems Inc ACIST Syringe Acist 1 06385 708024 104589 4974 14 20 (21069) Medical Systems Inc CHOICE PT Floppy [place] 1 [id number] 732368 925044 5474 60 5 Straight 300cm Scientific guide wire ([id number]) SHEATH 6FR Terumo 1 RSR01 251026 59308 9996 21 5 Destination (RSR01) GLIDE WIRE ANGLE Terumo 1 MF2225 700808 421193 6380 97 5 180cm (RP7832) GLIDE CATHETER 5FR Terumo 1 CG507 369499 4739 96 5 ANGLED 65cm (CG507) TORQUE DEVICE [place] 1 TD01 001233 759733 8209 08 5 PLASTIC .038 ( Scientific TD01) CXI SUPPORT .035 Cook Medical 1 L89074 635439 635747 1163 24 5 [id number] 135 CM STR catheter (E05279) ROADRUNNER .035 Cook Medical 1 I48441 640059 192076 8441 02 5 [id number] 260 glide wire (P77105) GLIDE WIRE ANGLE Terumo 1 SJ9776 386842 301937 3207 83 5 260cm (RC9038) INFLATOR Merit 1 RK9487 269285 955856 5981 55 5 [employer] Inc. (BX1085) Evercross 4 x 100 Medtronic 1 [id number] 676833 910625 3618 91 5 [id number] x 135 Balloon ([id number]) Evercross 3 x 100 Medtronic 1 [id number] 560084 43681 9999 92 5 [id number] x 135 Balloon ([id number]) CHOCOLATE 3.0 x Medtronic 2 [id number] O 873077 438644 4132 88 5 [id number] 120 x 150 balloon TW [id number] ([id number]) [id number] O 714774 [id number] TW [id number] PROTEGE STENT 5 X Medtronic 1 OSZ-96-90-120-12 490932 431742 1760 98 1 [id number] 120 X 120 0 [id number] ([id number]) [id number] Navicross Support Terumo 1 HT96795 652747 717416 1144 82 5 Straight .035 150cm catheter (QP14505) SHEATH 6FR Terumo 1 BEY215 305256 583720 4645 90 40 Truro (RHG911) EXOSEAL 6Fr Cardinal 1 EX600 302645 623043 6871 44 10 (EX600) Health Signature Audit [place] Stage Time Signature Unsigned Intra-Procedure 03/08/2019 Gala Ross 3:37:34 PM RT(R) [place] [place] [address]
[2019-03-04 18:03] LABS: BASOPHILS 0.3 % (0-2); HEMATOCRIT 36.1 % (36.0-48.0); HEMOGLOBIN 12.6 g/dL (12-16); IMMATURE GRANULOCYTES 0.1 % (0-5); MCH 30.4 pg (26.0-34.0); MCHC 34.9 g/dL (31.0-37.0); MCV 87.2 fL (80.0-100.0); MEAN PLATELET VOLUME 10.4 fL (7.4-10.4); MONOCYTES 7.3 % (2-11); NEUTROPHILS 77.3 % (40-80); PLATELET COUNT 282 10x3/uL (130-400); RBC 4.14 10x6/uL (4.00-5.40); RDW 14.2 % (11.5-14.5); WBC 9.7 10x3/uL (4.8-10.8)
[2019-03-04 18:21] LABS: ALBUMIN 4.2 g/dL (3.4-5.0); ANION GAP 15.5 mmol/L (8-16); BILIRUBIN - TOTAL 0.84 mg/dL (0.2-1.3); CARBON DIOXIDE 23.5 mmol/L (21.0-32.0); CREATININE - SERUM 1.2 mg/dL (0.6-1.3); PROTEIN - SERUM 8.4 g/dL (6.4-8.2)
--- NOTE | 2019-03-04 21:00 | NUR ---
ASSISTED PT WITH BEDPAN. ULTRASOUND AT BEDSIDE.
[2019-03-04 21:43] VITALS: BP 149/53
[2019-03-04 22:22] LABS: APTT 28.4 SECONDS (22.8-39.4); INR 1.06 (0.85-1.17); PROTIME 13.3 SECONDS (11.6-15.0)
--- NOTE | 2019-03-04 22:53 | NUR ---
BILATERAL PEDIAL PULSES MARKED WITH DOPPLER.
--- NOTE | 2019-03-04 23:13 | NUR ---
ATTEMPTED TO CALL REPORT TO FLOOR WILL CALL BACK.
[2019-03-05] VITALS (7 sets, daily range): BP systolic 126–150; BP diastolic 44–75; Ht 152.4 cm; Wt 56.6 kg
--- NOTE | 2019-03-05 00:16 | NUR ---
REC'D TO ROOM 2214 PER STRETCHER FROM ER DEPT AN 88 Y/O W/FE PER SERVICES DR. VILLAFANA WITH DX CLAUDICATION OF LEFT LOWER EXTREMITY. ALLERGY=SULFA. SALINE LOCK PATENT TO LEFT ARM WITH HEPARIN GTT CONNECTED AT 8CC'S/HR. SITE CLEAR. ALERT/ORIENTED X3. DAUGHTER IN ROOM. SR UP X2 CALL LIGHT WITHIN REACH ASSESSMENT PER ADMIT PACKET. VOIDED ON BEDPAN.
[2019-03-05] MEDS ORDERED: PRAVASTATIN SOD10 MG PO (00:22)
--- NOTE | 2019-03-05 02:00 | NUR ---
EYES CLOSED RESPIRATIONS WITH EASE AND UNLABORED.
--- NOTE | 2019-03-05 04:48 | NUR ---
RESTING QUIETLY RESPIRATIONS WITH EASE AND UNLABORED.
[2019-03-05 07:50] LABS: ANION GAP 10.1 mmol/L (8-16); CALCIUM 8.7 mg/dL (8.5-10.1); CREATININE - SERUM 1.1 mg/dL (0.6-1.3); POTASSIUM - SERUM 4.1 mmol/L (3.5-5.1)
[2019-03-05 08:04] LABS: BASOPHILS 0.6 % (0-2); EOSINOPHILS 1.8 % (0-7); HEMATOCRIT 31.5 % (36.0-48.0); HEMOGLOBIN 10.8 g/dL (12-16); IMMATURE GRANULOCYTES 0.3 % (0-5); LYMPHOCYTES 24.1 % (15-50); MCH 29.9 pg (26.0-34.0); MCHC 34.3 g/dL (31.0-37.0); MCV 87.3 fL (80.0-100.0); MEAN PLATELET VOLUME 10.8 fL (7.4-10.4); MONOCYTES 10.8 % (2-11); NEUTROPHILS 62.4 % (40-80); PLATELET COUNT 254 10x3/uL (130-400); RBC 3.61 10x6/uL (4.00-5.40); RDW 13.9 % (11.5-14.5)
--- NOTE | 2019-03-05 08:13 | NUR ---
REC'D PTT FROM LAB WITH RESULTS OF 179.1 AND PER PROTOCOL IF > THAN 150 HOLD DRIP FOR 1 HR AND DECREASE RATE BY 300 UNITS/HR. DRIP PLACED ON HOLD AT THIS TIME AND DECREASE DOWN FROM 800 UNITS TO 500 UNITS. C/L IN REACH AND FAMILY AT BEDSIDE.
[2019-03-05 08:19] LABS: WBC 6.8 10x3/uL (4.8-10.8)
[2019-03-05 09:22] LABS: % SATURATION 21 % (15-55); IRON 61 ug/dl (35-150); TOTAL IRON BIND CAPACITY 280 ug/dl (260-445); UNSAT IRON BIND CAPACITY 219 ug/dl (150-375)
[2019-03-05 09:46] LABS: FERRITIN 83 ng/mL (3-244); LDH 195 U/L (81-234)
--- NOTE | 2019-03-05 10:51 | NUR ---
PT IS CURRENTLY OFF THE UNIT
[2019-03-05 13:37] LABS: APPEARANCE CLEAR (CLEAR); BILIRUBIN NEGATIVE (NEGATIVE); COLOR YELLOW (YELLOW); GLUCOSE NEGATIVE (NEGATIVE); KETONE NEGATIVE (NEGATIVE); NITRITE NEGATIVE (NEGATIVE); PROTEIN NEGATIVE (NEGATIVE); SPECIFIC GRAVITY 1.015 (1.005-1.020); UROBILINOGEN NORMAL (NORMAL)
--- NOTE | 2019-03-05 16:16 | MORECARE ---
CASE MANAGEMENT DISCHARGE SUMMARY PATIENT: KALEIGH GANT UNIT: [id number] ADM DATE: 03/04/19 AGE: 88 : 32 SEX: F ROOM/BED: D.2214 AUTHOR: ODALYS JUAN PHYSICIAN: REFERRING PHYSICIAN: TEREZA VILLAFANA MD DATE OF SERVICE: 03/05/19 Discharge Plan Patient Name: KALEIGH GANT Facility: [facility]:[place] : 1930 Planned Disposition: Home or Self Care Anticipated Discharge Date: Discharge Date: Expected LOS: Initial Reviewer: [email or web address] Initial Review Date: 03/04/2019 Generated: 03/05/19 5:16 pm DCPIA - Discharge Planning Initial Assessment Updated by [email or web address]: Nadia Yeung on 03/05/19 4:11 pm * Is the patient Alert and Oriented? Yes * How many steps to enter\exit or inside your home? * PCP JONATAN * Pharmacy [facility] * Preadmission Environment Home with Family * ADLs Independent * Equipment Bedside Commode Cane Walker * List name and contact numbers for known caregivers / representatives who currently or will assist patient after discharge: MADAI [phone] * Verbal permission to speak to the caregivers and representatives has been obtained from the patient. N/A * Community resources currently utilized None * Additional services required to return to the preadmission environment? No * Can the patient safely return to the preadmission environment? Yes * Has this patient been hospitalized within the prior 30 days at any hospital? No Patient Name: KALEIGH GANT Page 63760 at 1616 All edits/amendments must be made on the electronic document DICTATION DATE: 03/05/19 1616 FUR NAILER: NIURKA 03/05/19 161 RPT#: [id number] DC DATE: STATUS: ADM IN [facility] [address] [place] [address] END OF REPORT
--- NOTE | 2019-03-05 20:00 | NUR ---
ASSESSMENT PER FLOWSHEET. IV PATENT LEFT ARM OF HEPARIN GTT AT 5CC'S/HR SITE CLEAR IV OF NS TO LEFT FOREARM INFUSING AT 100CC'S/HR. ALERT/ORIENTED X4 WAITING FOR DAUGHTER TO COME DENIES ANY DISCOMFORT.
--- NOTE | 2019-03-05 21:00 | NUR ---
UP TO BR WITH HELP VOIDS WELL. ASSISTED BACK TO BED SR UP X2 CALL LIGHT WITHIN REACH MEDS GIVEN PER OCT. DAUGHTER HERE IN ROOM.
--- NOTE | 2019-03-05 22:00 | NUR ---
BESIDE CAROTID DOPPLER DONE PER TECH.
--- NOTE | 2019-03-06 | NUR ---
EYES CLOSED RESPIRATIONS WITH EASE AND UNLABORED.
[2019-03-06 01:32] VITALS: BP 124/54
--- NOTE | 2019-03-06 03:36 | NUR ---
EYES CLOSED RESPIRATIONS WITH EASE AND UNLABORED.
[2019-03-06 05:23] VITALS: BP 148/52
[2019-03-06 05:35] LABS: BASOPHILS 0.2 % (0-2); EOSINOPHILS 2.4 % (0-7); HEMATOCRIT 34.6 % (36.0-48.0); HEMOGLOBIN 11.9 g/dL (12-16); IMMATURE GRANULOCYTES 0.3 % (0-5); LYMPHOCYTES 21.5 % (15-50); MCH 30.2 pg (26.0-34.0); MCHC 34.4 g/dL (31.0-37.0); MCV 87.8 fL (80.0-100.0); MEAN PLATELET VOLUME 10.8 fL (7.4-10.4); MONOCYTES 8.4 % (2-11); NEUTROPHILS 67.2 % (40-80); PLATELET COUNT 250 10x3/uL (130-400); RBC 3.94 10x6/uL (4.00-5.40); RDW 13.9 % (11.5-14.5); WBC 6.6 10x3/uL (4.8-10.8)
[2019-03-06 06:03] LABS: ANION GAP 15.1 mmol/L (8-16); CALCIUM 8.6 mg/dL (8.5-10.1); CARBON DIOXIDE 20.8 mmol/L (21.0-32.0); CREATININE - SERUM 1.1 mg/dL (0.6-1.3); POTASSIUM - SERUM 3.9 mmol/L (3.5-5.1)
[2019-03-06 07:50] LABS: INR 1.05 (0.85-1.17); PROTIME 13.2 SECONDS (11.6-15.0)
--- NOTE | 2019-03-06 07:52 | NUR ---
PT SITTING UP IN BED. DENIES ANY NEEDS. FAMILY AT BEDSIDE. NO S/S OF ACUTE DISTRESS. CL IN PLACE.
[2019-03-06 09:05] VITALS: BP 150/60
[2019-03-06 11:00] LABS: CHOL - HDL RATIO 3.2 ratio (2.3-4.1); LDL-HDL RATIO 1.8 ratio (1.5-3.5)
[2019-03-06 12:57] VITALS: BP 149/52
[2019-03-06 19:21] VITALS: BP 144/90
--- NOTE | 2019-03-06 19:36 | NUR ---
PT RESTING IN BED. NO S/S OF ACUTE DISTRESS. DAUGHTER AT BEDSIDE. CL IN PLACE.
--- NOTE | 2019-03-06 20:00 | NUR ---
ASSESSMENT PER FLOWSHEET SITTING UP IN CHAIR AT BEDSIDE. DAUGHTER AT BS IV PATENT LEFT ARM WITH HEPARIN GTT AT 5CC'S/HR NS AT 100CC'S/HR. NOTIFIED LAB DEPT PT NEEDS PTT LAB DRAW NOW. AWAITING DRAW AND RESULTS.
--- NOTE | 2019-03-06 21:00 | NUR ---
UP TO BR HAD SMALL YELLOW STOOL. SPECIMEN OBTAINED AND SENT TO LAB. ASSISTED BACK TO BED SR UP X2 CALL LIGHT WITHIN REACH MEDS PER OCT.
[2019-03-06 21:25] VITALS: BP 154/59
--- NOTE | 2019-03-06 21:30 | NUR ---
PTT RESULTS SHOWS 46.4 ADJUSTED HEPARN RATE BY 100 UNITS MAKING RATE 6CC'S/HR. WILL HAVE LAB DRAWN IN AM.
--- NOTE | 2019-03-07 | NUR ---
EYES CLOSED RESPIRATIONS WITH EASE AND UNLABORED.
[2019-03-07 02:22] VITALS: BP 162/61
--- NOTE | 2019-03-07 03:38 | NUR ---
RESTING QUIETLY DENIES NEEDS.
[2019-03-07 05:55] VITALS: BP 155/48
[2019-03-07 06:09] LABS: BASOPHILS 0.3 % (0-2); EOSINOPHILS 3.4 % (0-7); HEMATOCRIT 31.7 % (36.0-48.0); IMMATURE GRANULOCYTES 0.2 % (0-5); LYMPHOCYTES 31.9 % (15-50); MCH 30.3 pg (26.0-34.0); MCHC 34.7 g/dL (31.0-37.0); MCV 87.3 fL (80.0-100.0); MEAN PLATELET VOLUME 10.6 fL (7.4-10.4); MONOCYTES 6.9 % (2-11); NEUTROPHILS 57.3 % (40-80); PLATELET COUNT 231 10x3/uL (130-400); RBC 3.63 10x6/uL (4.00-5.40); RDW 13.9 % (11.5-14.5); WBC 6.2 10x3/uL (4.8-10.8)
[2019-03-07 06:17] LABS: INR 1.13 (0.85-1.17)
[2019-03-07 06:23] LABS: APTT 61.7 SECONDS (22.8-39.4)
[2019-03-07 06:36] LABS: ANION GAP 13.7 mmol/L (8-16); CALCIUM 8.3 mg/dL (8.5-10.1); POTASSIUM - SERUM 3.7 mmol/L (3.5-5.1)
--- NOTE | 2019-03-07 08:03 | NUR ---
PT RESTING IN BED. STUDENT ASSISTED PT UP TO BR. DENIES ANY NEEDS. NO S/S OF ACUTE DISTRESS. CL IN PLACE.
[2019-03-07 09:41] VITALS: BP 161/49
[2019-03-07 13:51] VITALS: BP 145/59
[2019-03-07 17:46] VITALS: BP 135/53
--- NOTE | 2019-03-07 18:47 | NUR ---
CALLED IR AND NOTIFIED PT WAS ON HEPARIN GTT.
[2019-03-07 21:13] VITALS: BP 145/50
[2019-03-08] VITALS (10 sets, daily range): BP systolic 117–172; BP diastolic 55–75
--- NOTE | 2019-03-08 01:16 | NUR ---
PT RESTING IN BED. EYES CLOSED. NO SIGNS OF DISTRESS. BREATHING EVEN AND UNLABORED. IV SITE LT FA DRESSING CLEAN DRY AND INTACT. NO SIGNS OF INFECTION. BOWEL SOUNDS ACTIVE. TELE MONITOR 73 SINUS. WILL COTNINUE PLAN OF CARE. CALL LIGHT IN REACH. BED LOWERED AND LOCKED. DAUGHTER AT BEDSIDE.
--- NOTE | 2019-03-08 02:19 | NUR ---
I have reviewed this patient and I concur with the Shift Assessment completed by the Licensed Practical Nurse today this shift.
[2019-03-08 07:26] LABS: BASOPHILS 0.4 % (0-2); EOSINOPHILS 3.7 % (0-7); HEMATOCRIT 33.8 % (36.0-48.0); HEMOGLOBIN 11.9 g/dL (12-16); IMMATURE GRANULOCYTES 0.2 % (0-5); LYMPHOCYTES 21.4 % (15-50); MCH 30.6 pg (26.0-34.0); MCHC 35.2 g/dL (31.0-37.0); MCV 86.9 fL (80.0-100.0); MEAN PLATELET VOLUME 10.6 fL (7.4-10.4); MONOCYTES 7.3 % (2-11); PLATELET COUNT 266 10x3/uL (130-400); RBC 3.89 10x6/uL (4.00-5.40); RDW 13.9 % (11.5-14.5)
[2019-03-08 07:30] LABS: WBC 8.4 10x3/uL (4.8-10.8)
[2019-03-08 07:34] LABS: ANION GAP 15.6 mmol/L (8-16); CALCIUM 9.1 mg/dL (8.5-10.1); CARBON DIOXIDE 23.3 mmol/L (21.0-32.0); CREATININE - SERUM 0.9 mg/dL (0.6-1.3); POTASSIUM - SERUM 3.9 mmol/L (3.5-5.1)
[2019-03-08 08:44] LABS: INR 1.03 (0.85-1.17)
--- NOTE | 2019-03-08 12:50 | NUR ---
PATIENT TAKEN FOR PROCEDURE.
[2019-03-08 16:01] LABS: HEMATOCRIT 30.3 % (36.0-48.0); HEMOGLOBIN 10.4 g/dL (12-16); MCHC 34.3 g/dL (31.0-37.0); MCV 87.3 fL (80.0-100.0); MEAN PLATELET VOLUME 10.3 fL (7.4-10.4); RBC 3.47 10x6/uL (4.00-5.40); RDW 13.8 % (11.5-14.5)
[2019-03-08 17:04] LABS: PROTIME 15.1 SECONDS (11.6-15.0)
[2019-03-08 17:09] LABS: INR 1.24 (0.85-1.17)
--- NOTE | 2019-03-08 18:52 | NUR ---
HEPARIN RESUMED AT 4ML PER HOUR
[2019-03-09] VITALS: BP 150/64
[2019-03-09 00:20] LABS: HEMATOCRIT 30.5 % (36.0-48.0); HEMOGLOBIN 10.8 g/dL (12-16); MCHC 35.4 g/dL (31.0-37.0); MCV 87.6 fL (80.0-100.0); MEAN PLATELET VOLUME 10.1 fL (7.4-10.4); RBC 3.48 10x6/uL (4.00-5.40); WBC 8.2 10x3/uL (4.8-10.8)
--- NOTE | 2019-03-09 02:01 | NUR ---
I have reviewed this patient and I concur with the Shift Assessment completed by the Licensed Practical Nurse today this shift.
--- NOTE | 2019-03-09 02:28 | NUR ---
A&O X 4. ASSISTED TO BATHROOM, WITH A WALKER. PT REPORTS SORENESS TO LLE, BUT, "NO PAIN LIKE YESTERDAY." LINENS AND GOWN CHANGED. VOIDED CLEAR YELLOW URINE. DENIES FURTHER NEEDS, WILL CONTINUE TO MONITOR.
[2019-03-09 04:00] VITALS: BP 142/66
[2019-03-09 06:25] LABS: ANION GAP 14.2 mmol/L (8-16); CALCIUM 8.1 mg/dL (8.5-10.1)
[2019-03-09 06:26] LABS: POTASSIUM - SERUM 3.2 mmol/L (3.5-5.1)
[2019-03-09 06:32] LABS: INR 1.2 (0.85-1.17); PROTIME 14.6 SECONDS (11.6-15.0)
[2019-03-09 06:34] LABS: BASOPHILS 0.4 % (0-2); EOSINOPHILS 1.5 % (0-7); HEMATOCRIT 30.3 % (36.0-48.0); HEMOGLOBIN 10.5 g/dL (12-16); IMMATURE GRANULOCYTES 0.1 % (0-5); LYMPHOCYTES 14.6 % (15-50); MCH 29.9 pg (26.0-34.0); MCHC 34.7 g/dL (31.0-37.0); MCV 86.3 fL (80.0-100.0); MEAN PLATELET VOLUME 10.5 fL (7.4-10.4); MONOCYTES 8.5 % (2-11); NEUTROPHILS 74.9 % (40-80); PLATELET COUNT 262 10x3/uL (130-400); RBC 3.51 10x6/uL (4.00-5.40); RDW 13.7 % (11.5-14.5)
--- NOTE | 2019-03-09 07:30 | NUR ---
ALERT AND ORIENTED. UP WITH ASSIST. NO C/O PAIN. NO S/S OF ACUTE DISTRESS NOTED. FALL RISK, EMILIA MAT ON BED ON. DRESSING TO RIGHT GROIN C/D/I. ON ELECTROLYE PROTOCOL. IV TO LEFT HAND, NS INFUSING @ 50ML/HR. SITE PATENT WITHOUT REDNESS OR SWELLING. HEPARIN DRIP @ 5ML/HR. ON TELEMETRY 81 SR. PT DENIES ANY NEEDS AT THIS TIME. CALL LIGHT IN REACH. WILL CONTINUE TO MONITOR.
[2019-03-09 08:46] VITALS: BP 161/62
--- NOTE | 2019-03-09 12:23 | NUR ---
I have reviewed this patient and I concur with the Shift Assessment completed by the Licensed Practical Nurse today this shift.
[2019-03-09 12:42] VITALS: BP 137/48
[2019-03-09 18:26] VITALS: BP 129/52
--- NOTE | 2019-03-09 18:45 | NUR ---
PT SITTING ON THE SIDE OF THE BED VISITING WITH FAMILY. NO C/O PAIN. NO S/S OF ACUTE DISTRESS NOTED. CALL LIGHT IN REACH. PT DENIES ANY NEEDS AT THIS TIME. CALL LIGHT IN REACH. WILL CONTINUE TO MONITOR.
[2019-03-09 20:14] VITALS: BP 145/88
[2019-03-10 00:29] LABS: HEMATOCRIT 25.6 % (36.0-48.0); HEMOGLOBIN 8.8 g/dL (12-16); MCH 29.8 pg (26.0-34.0); MCHC 34.4 g/dL (31.0-37.0); MCV 86.8 fL (80.0-100.0); MEAN PLATELET VOLUME 10.4 fL (7.4-10.4); RBC 2.95 10x6/uL (4.00-5.40); RDW 13.7 % (11.5-14.5); WBC 6.7 10x3/uL (4.8-10.8)
[2019-03-10 02:19] VITALS: BP 150/80
--- NOTE | 2019-03-10 02:43 | NUR ---
C/O 02/27 PAIN. REPORTS SCHEDULED NORCO RELIEVES SOME PAIN, BUT DOES NOT SIGNIFICANTLY REDUCE PAIN LEVELS. DENIES NEEDS AT THIS TIME, WILL CONTINUE TO MONITOR.
--- NOTE | 2019-03-10 05:06 | NUR ---
I have reviewed this patient and I concur with the Shift Assessment completed by the Licensed Practical Nurse today this shift.
[2019-03-10 06:01] VITALS: BP 164/60
[2019-03-10 06:21] LABS: ANION GAP 11.4 mmol/L (8-16); CALCIUM 7.9 mg/dL (8.5-10.1); CARBON DIOXIDE 23.6 mmol/L (21.0-32.0); CREATININE - SERUM 1.1 mg/dL (0.6-1.3); MAGNESIUM - SERUM 1.8 mg/dL (1.8-2.4)
[2019-03-10 06:44] LABS: BASOPHILS 0.3 % (0-2); EOSINOPHILS 4.2 % (0-7); HEMATOCRIT 27.7 % (36.0-48.0); HEMOGLOBIN 9.4 g/dL (12-16); IMMATURE GRANULOCYTES 0.3 % (0-5); LYMPHOCYTES 20.5 % (15-50); MCH 29.5 pg (26.0-34.0); MCHC 33.9 g/dL (31.0-37.0); MCV 86.8 fL (80.0-100.0); MEAN PLATELET VOLUME 10.2 fL (7.4-10.4); MONOCYTES 11.1 % (2-11); NEUTROPHILS 63.6 % (40-80); PLATELET COUNT 225 10x3/uL (130-400); RBC 3.19 10x6/uL (4.00-5.40); RDW 13.8 % (11.5-14.5); WBC 6.5 10x3/uL (4.8-10.8)
[2019-03-10 07:15] LABS: INR 1.2 (0.85-1.17); PROTIME 14.7 SECONDS (11.6-15.0)
--- NOTE | 2019-03-10 07:40 | NUR ---
PT ALERT AND ORIENTED. NO C/O PAIN. NO S/S OF ACUTE DISTRESS NOTED. PT UP WITH ASSIST. IV TO LEFT HAND, NS INFUSING @ 50ML/HR. PT ON TELEMETRY 63 SR. PT ON ELECTROLYTE PROTOCOL. PT DENIES ANY NEEDS AT THIS TIME. CALL LIGHT IN REACH. FAMILY AT BEDSIDE. WILL CONTINUE TO MONITOR.
[2019-03-10 09:50] VITALS: BP 139/52
[2019-03-10 12:59] VITALS: BP 145/51
--- NOTE | 2019-03-10 17:54 | NUR ---
PT ALERT AND ORIENTED. SITTING UP IN CHAIR. NO C/O PAIN. NO S/S OF ACUTE DISTRESS NOTED. CALL LIGHT IN REACH. PT DENIES ANY NEEDS AT THIS TIME. WILL CONTINUE TO MONITOR.
[2019-03-10 18:47] VITALS: BP 137/50
[2019-03-10 20:00] VITALS: BP 152/58
--- NOTE | 2019-03-10 20:16 | NUR ---
RCV`D PT. PATIENT RESTING IN BED WITH EYE CLOSED, WOKE UP WHILE I WAS TALKING TO HER DAUGHTER. BREATHING NONLABORED, NO S/S OF DISTRESS AND DENIES NEEDS AT THIS TIME. BED LOW, CALL LIGHT IN REACH, RAILS UP X 2. WILL CONTINUE TO MONITOR.
[2019-03-11] VITALS: BP 151/48
--- NOTE | 2019-03-11 02:23 | NUR ---
ASSISTED PT ON AND OFF OF BEDPAN. AT FIRST SHE WANTED TO WALK TO BATHROOM AND THEN DECIDED SHE WAS TOO WEAK TO GET UP AT THIS TIME. WILL CONTINUE TO MONITOR.
[2019-03-11 04:00] VITALS: BP 137/54
[2019-03-11 06:11] LABS: HEMOGLOBIN 9.3 g/dL (12-16); MCH 29.9 pg (26.0-34.0); MCHC 34.4 g/dL (31.0-37.0); MCV 86.8 fL (80.0-100.0); MEAN PLATELET VOLUME 10.8 fL (7.4-10.4); PLATELET COUNT 246 10x3/uL (130-400); RBC 3.11 10x6/uL (4.00-5.40); RDW 14.1 % (11.5-14.5); WBC 7.5 10x3/uL (4.8-10.8)
[2019-03-11 06:19] LABS: ANION GAP 13.2 mmol/L (8-16); CALCIUM 7.9 mg/dL (8.5-10.1); CREATININE - SERUM 1.1 mg/dL (0.6-1.3); POTASSIUM - SERUM 4.2 mmol/L (3.5-5.1)
--- NOTE | 2019-03-11 07:15 | NUR ---
REC'D IN BED AWAKE AND ALERT. RESP EVEN AND UNLABORED WITH NO DISTRESS NOTED. CAN EXPRESS NEED AND WANTS. NO C/O NOTED OR VOICED. ASSESSMENT COMPLETED. C/L IN REACH AT BEDSIDE.
[2019-03-11 08:45] LABS: EOSINOPHILS 8 % (0-7); LYMPHOCYTES 9 % (15-50); MONOCYTES 12 % (2-11); NEUTROPHILS 71 % (40-80); PLATELET ESTIMATE NORMAL; ROULEAUX OCC
[2019-03-11 08:53] VITALS: BP 146/58
--- NOTE | 2019-03-11 13:02 | NUR ---
I have reviewed this patient and I concur with the Shift Assessment completed by the Licensed Practical Nurse today this shift.
[2019-03-11 13:56] VITALS: BP 135/46
--- NOTE | 2019-03-11 15:15 | NUR ---
NUTRITION F/U CHART REVIEWED, PT VISIT. TOLERATING CURRENT DIET WITH 100% INTAKE RECENT MEALS. REMAINS AT LOW NUTRITIONAL RISK. RD FOLLOWING
--- NOTE | 2019-03-11 16:03 | NUR ---
OT NOTE: PT COMPLETED BED MOB TASKS WITH CGA. PT COMPLETED SITTING BALANCE AT EOB WITH SBA. PT STATES THAT LLE HURTS SECONDARY TO INCREASED SENSITIVITY. QUIGLEY COMPLETED LIGHT MASSAGE TO FOOT. PT COMPLETED HAIR GROOMING AT EOB WITH SPV. THANK YOU, SORAIDA ROCA
--- NOTE | 2019-03-11 17:03 | NUR ---
Rehab Note- Acute Inpatient Rehab prescreen order received. The patient has [facility] insurance & will require a PreAuth prior to an acute inpatient rehab stay. PreAuth has been started. Will follow at this time. Thank you for this referral! Eva Leary RN Clinical Liaison, [facility]
--- NOTE | 2019-03-11 19:03 | NUR ---
MEDICATED WITH NORCO FOR C/O PAIN RATING 7/10 ON PAIN SCALE. DAUGHTER AT BEDSIDE.
--- NOTE | 2019-03-11 19:35 | NUR ---
UP IN BED WITH FAMILY AT BEDSIDE, IN PLEASANT MOOD. ABLE TO VOICE NEEDS, NORMAL SALINE LOC TO L HAND. WILL NOTE ANY CHANGE.
[2019-03-11 20:00] VITALS: BP 109/53
--- NOTE | 2019-03-11 21:05 | NUR ---
PEDAL PULSE CHECKED VIA DOPPLER WITH GOOD RESULTS. WILL CONTINUE TO OBSERVE.
--- NOTE | 2019-03-11 21:34 | NUR ---
REQUESTED ASSISTANCE TO RESTROOM, USED WALKER AND HELP OF THIS NURSE AND FAMILY MEMBER, HAD PAIN 5/10 ONLY DURING WEIGHT BEARING TO LLE. BEDSIDE COMMODE OBTAINED FOR FUTURE TRANSFERS TO HELP DECREASE PAIN AT THIS TIME.
--- NOTE | 2019-03-11 23:21 | NUR ---
requested pain medicine for pain 7/10 on numerical scale, medication administered per orders. will note any change.
[2019-03-12] VITALS: BP 144/73
--- NOTE | 2019-03-12 00:30 | NUR ---
temperature of 100.3 reported, deep breathing exercises encouraged at bedside. will recheck.
--- NOTE | 2019-03-12 01:35 | NUR ---
TEMP RECHECK: 99 WILL CONTINUE TO OBSERVE.
[2019-03-12 02:08] LABS: BASOPHILS 0.1 % (0-2); EOSINOPHILS 1.6 % (0-7); HEMOGLOBIN 9.5 g/dL (12-16); IMMATURE GRANULOCYTES 0.2 % (0-5); LYMPHOCYTES 13.2 % (15-50); MCH 30.4 pg (26.0-34.0); MCHC 35.2 g/dL (31.0-37.0); MCV 86.5 fL (80.0-100.0); MEAN PLATELET VOLUME 10.4 fL (7.4-10.4); MONOCYTES 8.9 % (2-11); PLATELET COUNT 260 10x3/uL (130-400); RBC 3.12 10x6/uL (4.00-5.40); RDW 14.1 % (11.5-14.5); WBC 8.6 10x3/uL (4.8-10.8)
[2019-03-12 02:16] LABS: ANION GAP 13.2 mmol/L (8-16); CALCIUM 7.9 mg/dL (8.5-10.1); CARBON DIOXIDE 24.1 mmol/L (21.0-32.0); CREATININE - SERUM 1.2 mg/dL (0.6-1.3); POTASSIUM - SERUM 4.3 mmol/L (3.5-5.1)
--- NOTE | 2019-03-12 03:05 | NUR ---
I have reviewed this patient and I concur with the Shift Assessment completed by the Licensed Practical Nurse today this shift.
[2019-03-12 04:00] VITALS: BP 126/98
--- NOTE | 2019-03-12 07:56 | NUR ---
PT IS RESTING IN BED WITH EYES OPEN. RESPIRATIONS ARE EVEN AND UNLABORED. PT DENIES PRESENCE OF PAIN AT THIS TIME. PT STATES THAT PAIN OCCURS WHEN LEFT FOOT IS TOUCHED OR PRESSURE IS PLACED/WEIGHT BEARING. PT REPORTS PAIN STABBING/TINGLING. DAUGHTER IS AT BEDSIDE. PULSES AUDIBLE WITH DOPPLER. PT DENIES PRESENCE OF N/V. PT DENIES FURTHER NEEDS AT THIS TIME. BED IS IN THE LOWEST POSITION. CALL LIGHT AND BEDSIDE TABLE ARE WITHIN REACH. SIDE RAILS X 2. WILL CONT TO MONITOR.
[2019-03-12 08:46] VITALS: BP 150/98
[2019-03-12 13:23] VITALS: BP 121/47
--- NOTE | 2019-03-12 15:21 | NUR ---
PT IS RESTING IN BED WITH EYES OPEN. RESPIRATIONS ARE SHALLOW AND TACHY. PT REPORTS SUDDEN ONSET OF CHEST PAIN UNDER LEFT BREAST. DESCRIBED SHARP IN NATURE. PT ATTEMPTS TO COUGH AND EXHIBITS SOB AND PAIN WITH COUGHING ERIC RITUAL CIRCUMCISER ON FLOOR. ERIC RITUAL CIRCUMCISER NOTIFIED OF PT STATUS. VERBAL ORDERS RECD FOR CARDIAC ENZYMES X 3. CHEST X RAY. EKG. ORDERS PLACED. WILL CONT TO CLOSELY MONITOR.
--- NOTE | 2019-03-12 15:28 | NUR ---
PT DAUGHTER REPORTS PT HAD GA "ABOUT 4 YEARS AGO AND PLACED A STENT". PT DAUGHTER STATES PT HAD TO HAVE STENT "OPENED UP AGAIN ABOUT A YEAR LATER". PT REPORTS THAT CHEST PAIN SYMPTOMS HAVE "EASED OFF" AND STATES THAT PAIN "IS NOT BAD WHAT IS WAS". EKG COMPLETED. RESULTS GIVEN TO ERIC DRAPERY HEMMER AUTOMATIC BY RESPIRATORY STAFF. DAUGHTER IS AT BEDSIDE. WILL CONT TO MONITOR.
--- NOTE | 2019-03-12 16:24 | NUR ---
OT NOTE: CHECKED ON PT EARLIER IN AFTERNOON.. STATED THAT HER PAIN WAS VERY BAD WHEN MOVING FEET. DTR STATED THAT HER MOTHER WAS C/O PAIN WHEN DTR JUST TOUCHED THE TOP OF FEED. EXPLAINED TO PT WHAT THERAPY WOULD BE DOING AND SHE WAS AGREEABLE. BED MOB WITH MIN ASSIST; GOOD STATIC SITTING ON EOB. REQUIRED MAX ASSIST TO CAROL SOCKS AND SHOES.. PT STATING THIS IS VERY PAINFUL.. MIN ASSIST WITH WALKER FOR SIT TO STAND.PT ABLE TO AMB GREATER THAN 200 FT TODAY WITH WALKER AND MIN ASSIST. STATED THAT SHE WAS NOW FEELING MUCH BETTER THAN YESTERDAY. REMINDED PT THAT SHE WAS ONLY ABLE TO AMB A FEW STEPS YESTERDAY, AND THAT SHE WAS UNABLE TO WT BEAR ON L FOOT YESTERDAY. TODAY PT WAS ABLE TO FULLY WT BEAR ON L FOOT. AROM EXS FOR STRENGTHENING TO ASSIST WITH ADLS AND BED MOB. DONA AGUDELO, OTR/L
[2019-03-12 16:40] LABS: CKMB 1.1 U/L (0.0-3.6); CREATINE KINASE 82 UL (21-215); TROPONIN-I < 0.017 ng/mL (0.000-0.060)
[2019-03-12 16:55] VITALS: BP 134/51
--- NOTE | 2019-03-12 16:55 | NUR ---
Rehab Note- Continue to await determination for inpatient acute rehab stay. CLinicals have been faxed for review. Have spoken w/ TATIANA Golden. Eva Leary RN Clinical Liaison, [facility] Rehab
--- NOTE | 2019-03-12 16:55 | NUR ---
PT IS WEARING A ZIPPER TRIMMER HAND. PT IS CURRENTLY RUNNING SINUS RHYTHM 61 PER ZIPPER TRIMMER HAND TECH.
--- NOTE | 2019-03-12 16:57 | NUR ---
OT NOTE: PT COMPLETED BED MOB WITH MIN A. PT COMPLETED EOB SITTING BALANCE WITH SBA. PT COMPLETED SIMPLE GROOMING TASK WITH SET UP. PT COMPLETED BUE AROM AXS. THANK YOU, SORAIDA ROCA
[2019-03-12 20:19] VITALS: BP 141/51
[2019-03-13 00:11] LABS: CKMB 0.7 U/L (0.0-3.6); CREATINE KINASE 76 UL (21-215); TROPONIN-I < 0.017 ng/mL (0.000-0.060)
[2019-03-13 00:58] VITALS: BP 153/58
[2019-03-13 03:28] LABS: BASOPHILS 0.3 % (0-2); HEMATOCRIT 27.7 % (36.0-48.0); HEMOGLOBIN 9.5 g/dL (12-16); IMMATURE GRANULOCYTES 0.3 % (0-5); LYMPHOCYTES 16.2 % (15-50); MCH 29.8 pg (26.0-34.0); MCHC 34.3 g/dL (31.0-37.0); MCV 86.8 fL (80.0-100.0); MEAN PLATELET VOLUME 10.4 fL (7.4-10.4); MONOCYTES 9.6 % (2-11); NEUTROPHILS 70.6 % (40-80); PLATELET COUNT 280 10x3/uL (130-400); RBC 3.19 10x6/uL (4.00-5.40); RDW 14.3 % (11.5-14.5); WBC 7.4 10x3/uL (4.8-10.8)
[2019-03-13 03:39] LABS: CALCIUM 8.5 mg/dL (8.5-10.1); CARBON DIOXIDE 23.8 mmol/L (21.0-32.0); CREATININE - SERUM 1.2 mg/dL (0.6-1.3); POTASSIUM - SERUM 4.8 mmol/L (3.5-5.1)
[2019-03-13 03:54] LABS: CKMB 0.7 U/L (0.0-3.6); CREATINE KINASE 65 UL (21-215)
[2019-03-13 03:55] LABS: TROPONIN-I < 0.017 ng/mL (0.000-0.060)
--- NOTE | 2019-03-13 04:45 | NUR ---
I have reviewed this patient and I concur with the Shift Assessment completed by the Licensed Practical Nurse today this shift.
[2019-03-13 04:54] VITALS: BP 146/52
[2019-03-13 08:58] VITALS: BP 132/48
--- NOTE | 2019-03-13 13:08 | NUR ---
OT NOTE: PT REPORTING INCREASED PAIN IN L FOOT; DTR FEELS THAT ANKLE, BOTH LATERAL AND MEDIAL SIDE, IS BECOMING MORE READ. MIN ASSIST WITH BED MOB; MIN ASSIST TO CAROL GOWN; EXTENSIVE ASSIST TO CAROL SOCKS AND SHOES; SIMPLE GROOMING WITH SET UP; ABLE TO AMB WITH MUCH DIFFICULTY WT BEARING INITIALLY, HOWEVER, AFTER APPROX 15 FT, GAIT IMPROVED AND PT REPORTED LESS PAIN WITH WT BEARING. DONA AGUDELO, OTR/L
[2019-03-13 15:58] VITALS: BP 148/51
--- NOTE | 2019-03-13 16:47 | NUR ---
OT NOTE: PT COMPLETED ADL MOB WITH CGA/MIN A. PT COMPLETED SITTING BALANCE WITH SBA. PT COMPLETED CAROL/DOFF SHOES AND SOCKS WITH MOD A. PT HAS C/O PAIN IN LLE. THANK YOU, SORAIDA ROCA
--- NOTE | 2019-03-13 16:48 | NUR ---
Rehab Note- Received call from Ksenia with [facility] that the spanish medical interpreter denied the patient an inpatient acute rehab stay. A peer to peer can be set up by 1500 on 03/14 by contacting Ksenia [phone]. Spoke with TATIANA Beebe. Thank you for this referral! Eva Leary RN Clinical Liaison, [facility] Rehab
[2019-03-13 20:00] VITALS: BP 155/50
--- NOTE | 2019-03-13 20:00 | NUR ---
PT SITTING UP IN BED WITHOUT DISTRESS, ALERT AND ORIENTED. DENIES PAIN AT THIS TIME. REDDENED AREA AROUND FOOT CIRCLED, NO NEW REDNESS OUTSIDE OF SOBOBA. PT DENIES PAIN AT THIS TIME. IV LEFT HAND SL, FLUSHED EASILY. HR 63 SR PER TELE. UP WITH ASSIST TO BEDSIDE COMMODE. DOPPLER USED FOR LEFT PEDAL PULSE. SOME SWELLING TO LEFT FOOT. DENIES NEEDS AT THIS TIME. CL IN REACH, WILL CTM
[2019-03-14] VITALS (16 sets, daily range): BP systolic 118–169; BP diastolic 42–78
[2019-03-14 01:48] LABS: HEMATOCRIT 27.6 % (36.0-48.0); HEMOGLOBIN 9.2 g/dL (12-16); MCHC 33.3 g/dL (31.0-37.0); MEAN PLATELET VOLUME 9.5 fL (7.4-10.4); RBC 3.54 10x6/uL (4.00-5.40); RDW 15.6 % (11.5-14.5)
[2019-03-14 01:49] LABS: WBC 5.3 10x3/uL (4.8-10.8)
[2019-03-14 05:30] LABS: BASOPHILS 0.2 % (0-2); EOSINOPHILS 1.2 % (0-7); HEMATOCRIT 29.9 % (36.0-48.0); HEMOGLOBIN 10.7 g/dL (12-16); IMMATURE GRANULOCYTES 0.3 % (0-5); LYMPHOCYTES 12.3 % (15-50); MCH 31.2 pg (26.0-34.0); MCHC 35.8 g/dL (31.0-37.0); MEAN PLATELET VOLUME 10.7 fL (7.4-10.4); MONOCYTES 9.6 % (2-11); NEUTROPHILS 76.4 % (40-80); RBC 3.43 10x6/uL (4.00-5.40); RDW 14.3 % (11.5-14.5)
[2019-03-14 05:38] LABS: MCV 87.2 fL (80.0-100.0); PLATELET COUNT 321 10x3/uL (130-400); WBC 8.6 10x3/uL (4.8-10.8)
[2019-03-14 06:00] LABS: ANION GAP 14.8 mmol/L (8-16); CALCIUM 9.3 mg/dL (8.5-10.1); CARBON DIOXIDE 23.6 mmol/L (21.0-32.0); CREATININE - SERUM 1.2 mg/dL (0.6-1.3); POTASSIUM - SERUM 4.4 mmol/L (3.5-5.1)
--- NOTE | 2019-03-14 06:35 | NUR ---
PT HAVING HARD TIME STAYING AWAKE WHILE RESPIRATORY WAS DOING BREATHING TRX. PT STATES SHE IS JUST REALLY SLEEPY. PT DID NOT SLEEP MUCH LAST NIGHT, WAS UP BACK AND FORTH BETWEEN CHAIR AND BED STATING SHE COULD NOT GET COMFORTABLE. VSS AT THIS TIME. WILL CTM
--- NOTE | 2019-03-14 09:45 | MORECARE ---
CASE MANAGEMENT DISCHARGE SUMMARY PATIENT: KALEIGH GANT UNIT: [id number] ADM DATE: 03/04/19 AGE: 88 : 32 SEX: F ROOM/BED: D.2214 AUTHOR: ODALYS JUAN PHYSICIAN: REFERRING PHYSICIAN: TEREZA VILLAFANA MD DATE OF SERVICE: 03/14/19 Discharge Plan Patient Name: KALEIGH GANT Facility: [facility]:[place] : 1930 Planned Disposition: Home or Self Care Anticipated Discharge Date: Discharge Date: Expected LOS: Initial Reviewer: [id number] Initial Review Date: 03/04/2019 Generated: 03/14/19 10:45 am DCP- Discharge Planning Updated by [id number]: Nadia Yeung on 03/05/19 3:[address] Patient Name: KALEIGH GANT Admission Status: ER Accout number: [id number] Admission Date: 03-04-2019 : 1930 Admission Diagnosis: Attending: TEREZA VILLAFANA Current LOS: 1 Anticipated DC Date: Planned Disposition: Home or Self Care Primary Insurance: [facility] MEDICARE SOLUTIONS Discharge Planning Comments: CM met with patient to complete initial dc planning assessment. CM educated patient on the CM role and verbal consent given by patient to complete assessment. Patient lives at home where she is independent with her care, she does not drive out of town so her daughter will take her to things that are out of her town. At discharge patient plans to return home and feels this is a safe discharge. CM discussed availability of home health, rehab services, and medical equipment. She has a BSC, Cane & walker at home. Patient denied known discharge needs at this time. CM will continue to follow and will assist as needed with dc plans/needs. Broadcast Operations Director: Nadia Yeung DCPIA - Discharge Planning Initial Assessment Updated by [id number]: Nadia Yeung on 03/05/19 4:11 pm * Is the patient Alert and Oriented? Yes * How many steps to enter\exit or inside your home? * PCP JONATAN * [facility] * Preadmission Environment Home with Family * ADLs Independent * Equipment Bedside Commode Cane Walker * List name and contact numbers for known caregivers / representatives who currently or will assist patient after discharge: MADAI [phone] * Verbal permission to speak to the caregivers and representatives has been obtained from the patient. N/A * Community resources currently utilized None * Additional services required to return to the preadmission environment? No * Can the patient safely return to the preadmission environment? Yes * Has this patient been hospitalized within the prior 30 days at any hospital? No External Providers External Provider: [facility] Next Contact Date: Service Request Date: Service Type: Resolution: Reviewer: Comments: Last DP export: 03/05/19 3:16 p Patient Name: KALEIGH GANT Page 17052 at 0945 All edits/amendments must be made on the electronic document DICTATION DATE: 03/14/19944 OIL FIELD EQUIPMENT MECHANIC SUPERVISOR: NIURKA 03/14/19944 RPT#: [id number] DC DATE: STATUS: ADM IN [facility] [address] [place] [address] END OF REPORT
--- NOTE | 2019-03-14 13:00 | NUR ---
1242 PT ARRIVED TO UNIT FROM CT. RESPONDS APPROPRIATELY WHEN QUESTIONED. ORIENTED TO PERSON, PLACE. GOES BACK TO SLEEPING WHEN NOT STIMULATED. EPISODES OF APNEA NOTED. PLACED ON 2L NC. PT DENIES PAIN EXCEPT WHEN LEFT LEG/FOOT TOUCHED. HAS REDNESS NOTED IN EXTREMITY AND IS OUTLINED. PALPABLE PULSES.
--- NOTE | 2019-03-14 15:00 | NUR ---
CHASE WITH RADIOLOGY BY TO CHECK ON PT LEFT FOOT.
--- NOTE | 2019-03-14 17:39 | NUR ---
PT ASSISTED WITH TOILETING NEEDS. IS ABLE TO MAKE NEEDS KNOWN. PT ROLLED WITH SOME ASSIST ON TO SIDE FOR BEDPAN. CARRYING ON CONVERSATION WITH FAMILY. DENIES PAIN EXCEPT WHEN LEFT LEG TOUCHED OR BUMPED.
--- NOTE | 2019-03-14 18:13 | NUR ---
DIRECTOR OF NURSING AT BEDSIDE FOR CHEST XRAY
--- NOTE | 2019-03-14 19:15 | NUR ---
REPORT REC'D, ASSUMED CARE. ASSESSMENT COMPLETED PER FLOWSHEETS. PT AWAKE, EAT SOME OF HER DINNER, DAUGHTER AT BEDSIDE. SR ON CM. DENIES ANY DISCOMFORT AT THIS TIME. LUNG SOUNDS DIMINISHED TO LLB, UNLABORED, ON 2L VIA NC. LEFT FOOT REDNESS AND SWOLLEN NOTED. WARM TO TOUCH. PP WITH DOPPLER. WILL CONT TO MONITOR.
--- NOTE | 2019-03-14 21:00 | NUR ---
SCHEDULED MEDS GIVEN PER ORDER. PT ESTIVEN WELL. REPOSITIONED FOR COMFORT. PILLOWS FOR SUPPORT. HOB. CALL LIGHT IN REACH. CONT TO MONITOR.
--- NOTE | 2019-03-14 21:30 | NUR ---
PT C/O PAIN TO LEFT FOOT 4/10 ON SCALE. TYLENOL 650MG PO GIVEN PER ORDER. WILL CONT TO MONITOR.
--- NOTE | 2019-03-14 23:00 | NUR ---
REASSESSMENT COMPLETED PER FLOWSHEETS. PT AROUSES EASILY WITH VOICES, NO ACUTE CHANGES IN PT'S STATUS. NO NEEDS VOICES. VSS. CPOC.
[2019-03-15] VITALS (14 sets, daily range): BP systolic 122–168; BP diastolic 50–77
--- NOTE | 2019-03-15 01:00 | NUR ---
PT RESTING WITHOUT DISTRESS AT THIS TIME. NO NEEDS VOICES. CPOC.
--- NOTE | 2019-03-15 03:00 | NUR ---
REASSESSMENT COMPLETED PER FLOWSHEETS. PT AWAKE AND ALERT WITHOUT SIGNS OF DISTRESS. VSS.
[2019-03-15 03:59] LABS: BASOPHILS 0.3 % (0-2); EOSINOPHILS 3.2 % (0-7); HEMATOCRIT 26.4 % (36.0-48.0); IMMATURE GRANULOCYTES 0.5 % (0-5); LYMPHOCYTES 20.9 % (15-50); MCH 30.1 pg (26.0-34.0); MCHC 34.1 g/dL (31.0-37.0); MCV 88.3 fL (80.0-100.0); MEAN PLATELET VOLUME 10.5 fL (7.4-10.4); MONOCYTES 11.8 % (2-11); NEUTROPHILS 63.3 % (40-80); PLATELET COUNT 290 10x3/uL (130-400); RBC 2.99 10x6/uL (4.00-5.40); RDW 14.5 % (11.5-14.5)
[2019-03-15 04:00] LABS: WBC 6.2 10x3/uL (4.8-10.8)
[2019-03-15 04:18] LABS: ALBUMIN 2.4 g/dL (3.4-5.0); ANION GAP 11.8 mmol/L (8-16); BILIRUBIN - TOTAL 0.48 mg/dL (0.2-1.3); CALCIUM 8.4 mg/dL (8.5-10.1); CARBON DIOXIDE 24.4 mmol/L (21.0-32.0); CREATININE - SERUM 1.1 mg/dL (0.6-1.3); POTASSIUM - SERUM 4.2 mmol/L (3.5-5.1); PROTEIN - SERUM 6.4 g/dL (6.4-8.2)
--- NOTE | 2019-03-15 05:00 | NUR ---
ASSISTED WITH BEDPAN. VOIDS WITHOUT DIFFIC. PERICARE PROVIDED. REPOSITIONED WITH MINIMAL ASSISTENCE. CALL LIGHT IN REACH. CPOC.
--- NOTE | 2019-03-15 07:00 | NUR ---
BEDSIDE SHIFT REPORT AND ASSESSMENT COMPLETE. O2 SAT 98 ON 2L NC, VSS. BEDSIDE TABLE AND CALL LIGHT IN REACH, PT DENIES ANY NEEDS AT THIS TIME. WILL CONTINUE PLAN OF CARE.
--- NOTE | 2019-03-15 09:00 | NUR ---
SITTING UP IN BED, EATING BREAKFAST. LLE PERIPHERAL PULSE DOPPLERED, SKIN WARM AND DRY. MEDS GIVEN PER MAR, PT TOLERATED. WILL CONTINUE TO MONITOR.
--- NOTE | 2019-03-15 09:12 | NUR ---
Nutrition follow-up: Pt now in ICU due to lethargy Diet: Low sodium PO intake ~80% average of last 6 meals Labs reviewed Wt: 114# +BM RDN following.
--- NOTE | 2019-03-15 09:20 | NUR ---
FAMILY AT BEDSIDE, UPDATE GIVEN. DENIES ANY NEEDS AT THIS TIME.
--- NOTE | 2019-03-15 09:54 | MORECARE ---
CASE MANAGEMENT DISCHARGE SUMMARY PATIENT: KALEIGH GANT UNIT: [id number] ADM DATE: 03/04/19 AGE: 88 : 32 SEX: F ROOM/BED: D.2311 AUTHOR: ODALYS JUAN PHYSICIAN: REFERRING PHYSICIAN: TEREZA VILLAFANA MD DATE OF SERVICE: 03/15/19 Discharge Plan Patient Name: KALEIGH GANT Facility: [facility]:[place] : 1930 Planned Disposition: Home or Self Care Anticipated Discharge Date: Discharge Date: Expected LOS: Initial Reviewer: [email or web address] Initial Review Date: 03/04/2019 Generated: 03/15/19 10:53 am Comments DCP- Discharge Planning Updated by [email or web address]: Nadia Yeung on 03/15/19 8:[address] LATE ENTRY: 03/15/19 @ 0925 DISCUSSED OPTIONS WITH PATIENT AND DAUGHTER ABOUT SKILLED FACILITIES, DAUGHTER WOULD LIKE HER TO GO TO [facility], BECAUSE IT IS IN THE SAME TOWN HER AND SHE COULD COME VISIT. JACOB IS AGREEABLE TO THIS. GUIDO SIGNED AND IMM SERVED AND EXPLAINED. [facility]ERRAL SENT TO [facility]. PATIENT WAS DENIED IN PATIENT REHAB. DCP- Discharge Planning Updated by [email or web address]: Nadia Yeung on 03/05/19 3:[address] Patient Name: KALEIGH GANT Admission Status: ER Accout number: [id number] Admission Date: 03-04-2019 : 1930 Admission Diagnosis: Attending: TEREZA VILLAFANA Current LOS: 1 Anticipated DC Date: Planned Disposition: Home or Self Care Primary Insurance: [facility] MEDICARE SOLUTIONS Discharge Planning Comments: CM met with patient to complete initial dc planning assessment. CM educated patient on the CM role and verbal consent given by patient to complete assessment. Patient lives at home where she is independent with her care, she does not drive out of town so her daughter will take her to things that are out of her town. At discharge patient plans to return home and feels this is a safe discharge. CM discussed availability of home health, rehab services, and medical equipment. She has a BSC, Cane & walker at home. Patient denied known discharge needs at this time. CM will continue to follow and will assist as needed with dc plans/needs. Timber Cutter: Nadia Yeung DCPIA - Discharge Planning Initial Assessment Updated by [email or web address]: Nadia Yeung on 03/05/19 4:11 pm * Is the patient Alert and Oriented? Yes * How many steps to enter\exit or inside your home? * PCP JONATAN * [facility] * Preadmission Environment Home with Family * ADLs Independent * Equipment Bedside Commode Cane Walker * List name and contact numbers for known caregivers / representatives who currently or will assist patient after discharge: MADAI [phone] * Verbal permission to speak to the caregivers and representatives has been obtained from the patient. N/A * Community resources currently utilized None * Additional services required to return to the preadmission environment? No * Can the patient safely return to the preadmission environment? Yes * Has this patient been hospitalized within the prior 30 days at any hospital? No Coverage Notice Reviewer: [id number] Juana Yeung Notice Issued Date-Time: 03/14/2019 9:25 Notice Type: IM Discharge Notice Notice Delivered To: Patient Relationship to Patient: Fourdrinier Machine Operator Name: Delivery Method: HAND - Hand Delivered Keely Days: Prior Verbal Notification: Recipient Understood Notice: Yes Recipient Signature: Yes Med Rec Note Co-signed by Attending: Coverage Notice Comment: Reviewer: [id number] Juana Yeung Notice Issued Date-Time: 03/14/2019 9:25 Notice Type: Patient Choice Letter Notice Delivered To: Patient Relationship to Patient: Fourdrinier Machine Operator Name: Delivery Method: HAND - Hand Delivered Keely Days: Prior Verbal Notification: Recipient Understood Notice: Yes Recipient Signature: Yes Med Rec Note Co-signed by Attending: Coverage Notice Comment: [facility] Last DP export: 03/14/19 8:45 a Patient Name: KALEIGH GANT Page 22378 at 0954 All edits/amendments must be made on the electronic document DICTATION DATE: 03/15/19952 TRIMMING CASER: NIURKA 03/15/1951 RPT#: [id number] DC DATE: STATUS: ADM IN [facility] [address] [facility] END OF REPORT
--- NOTE | 2019-03-15 11:46 | NUR ---
DR HERNÁNDEZ UPDATED ON PT, NEW ORDERS RECEIVED. CHG BATH COMPLETE. WILL TRANSFER TO ROOM 2108.
--- NOTE | 2019-03-15 12:32 | NUR ---
RECEIVED FROM ICU. SHE IS ALERT ABLE TO VOICE NEEDS. RESP EVEN WITHOUT LABOR LEFT HAND SALINE LOCK INTACT. PULSE TO LEFT FOOT FOUND BY DOPPLER. COULD FEEL ONE IN RIGHT FOOT BUT IT IS WEAK. SPOT ON LEFT SIDE OF FOOT IS RED BUT SHARPIE DRAWN AOUND IT AND IT HAS NOT SPREAD. BBS ARE CLEAR. HEART MONITOR ON WITH RATE OF 80.
--- NOTE | 2019-03-15 14:14 | MORECARE ---
CASE MANAGEMENT DISCHARGE SUMMARY PATIENT: KALEIGH GANT UNIT: [id number] ADM DATE: 03/04/19 AGE: 88 : 32 SEX: F ROOM/BED: D.2729 AUTHOR: ODALYS JUAN PHYSICIAN: REFERRING PHYSICIAN: TEREZA VILLAFANA MD DATE OF SERVICE: 03/15/19 Discharge Plan Patient Name: KALEIGH GANT Facility: [facility]:[place] : 1930 Planned Disposition: Home or Self Care Anticipated Discharge Date: Discharge Date: Expected LOS: Initial Reviewer: [email or web address] Initial Review Date: 03/04/2019 Generated: 03/15/19 3:14 pm Comments DCP- Discharge Planning Updated by [id number]: Nadia Yeung on 03/15/19 8:[address] LATE ENTRY: 03/15/19 @ 0925 DISCUSSED OPTIONS WITH PATIENT AND DAUGHTER ABOUT SKILLED FACILITIES, DAUGHTER WOULD LIKE HER TO GO TO [facility], BECAUSE IT IS IN THE SAME TOWN HER AND SHE COULD COME VISIT. JACOB IS AGREEABLE TO THIS. GUIDO SIGNED AND IMM SERVED AND EXPLAINED. REFERRAL SENT TO [facility]. PATIENT WAS DENIED IN PATIENT REHAB. DCP- Discharge Planning Updated by [id number]: Nadia Yeung on 03/05/19 3:[address] Patient Name: KALEIGH GANT Admission Status: ER Accout number: [id number] Admission Date: 03-04-2019 : 1930 Admission Diagnosis: Attending: TEREZA VILLAFANA Current LOS: 1 Anticipated DC Date: Planned Disposition: Home or Self Care Primary Insurance: [facility] MEDICARE SOLUTIONS Discharge Planning Comments: CM met with patient to complete initial dc planning assessment. CM educated patient on the CM role and verbal consent given by patient to complete assessment. Patient lives at home where she is independent with her care, she does not drive out of town so her daughter will take her to things that are out of her town. At discharge patient plans to return home and feels this is a safe discharge. CM discussed availability of home health, rehab services, and medical equipment. She has a BSC, Cane & walker at home. Patient denied known discharge needs at this time. CM will continue to follow and will assist as needed with dc plans/needs. Craft Manager: Nadia Yeung DCPIA - Discharge Planning Initial Assessment Updated by [email or web address]: Nadia Yeung on 03/05/19 4:11 pm * Is the patient Alert and Oriented? Yes * How many steps to enter\exit or inside your home? * PCP JONATAN * [facility] * Preadmission Environment Home with Family * ADLs Independent * Equipment Bedside Commode Cane Walker * List name and contact numbers for known caregivers / representatives who currently or will assist patient after discharge: MADAI [phone] * Verbal permission to speak to the caregivers and representatives has been obtained from the patient. N/A * Community resources currently utilized None * Additional services required to return to the preadmission environment? No * Can the patient safely return to the preadmission environment? Yes * Has this patient been hospitalized within the prior 30 days at any hospital? No Coverage Notice Reviewer: [id number] Juana Yeung Notice Issued Date-Time: 03/14/2019 9:25 Notice Type: IM Discharge Notice Notice Delivered To: Patient Relationship to Patient: Last Repairer Helper Name: Delivery Method: HAND - Hand Delivered Keely Days: Prior Verbal Notification: Recipient Understood Notice: Yes Recipient Signature: Yes Med Rec Note Co-signed by Attending: Coverage Notice Comment: Reviewer: [id number] Juana Yeung Notice Issued Date-Time: 03/14/2019 9:25 Notice Type: Patient Choice Letter Notice Delivered To: Patient Relationship to Patient: Last Repairer Helper Name: Delivery Method: HAND - Hand Delivered Keely Days: Prior Verbal Notification: Recipient Understood Notice: Yes Recipient Signature: Yes Med Rec Note Co-signed by Attending: Coverage Notice Comment: [facility] Last DP export: 03/15/19 8:54 a Patient Name: KALEIGH GANT Page [phone] at 1414 All edits/amendments must be made on the electronic document DICTATION DATE: 03/15/191413 ENGINEERING SCIENTIST: NIURKA 03/15/194 RPT#: [id number] DC DATE: STATUS: ADM IN [facility] [address] [facility] END OF REPORT
--- NOTE | 2019-03-15 14:31 | MORECARE ---
CASE MANAGEMENT DISCHARGE SUMMARY PATIENT: KALEIGH GANT UNIT: [id number] ADM DATE: 03/04/19 AGE: 88 : 32 SEX: F ROOM/BED: D.9320 AUTHOR: YESSICA,DOC PHYSICIAN: REFERRING PHYSICIAN: TEREZA VILLAFANA MD DATE OF SERVICE: 03/15/19 Discharge Plan Patient Name: KALEIGH GANT Facility: [facility]:[place] : 1930 Planned Disposition: Home or Self Care Anticipated Discharge Date: Discharge Date: Expected LOS: Initial Reviewer: [id number] Initial Review Date: 03/04/2019 Generated: 03/15/19 3:31 pm Comments DCP- Discharge Planning Updated by [id number]: Sharon Cao on 03/15/19 1:[address] CM received notice that insurance auth approved for [facility] [id number]. Auth will in 72hrs. If patient discharges on Monday she will need new auth. CM spoke with Dr. Wilkins he did not want to discharge today he stated possibly tomorrow. CM called [facility] and she stated that Rehab would accept patient over weekend if family could provide transportation. CM spoke with both daughters and they have agreed to transport patient if discharged. CM notified [facility] that family could transport if discharged. Marcos states for CM to call facility [facility] [phone] and let them know if discharging so they will be ready when patient arrives. CM will continue to follow and assist as needed with discharge planning / needs. DCP- Discharge Planning Updated by [id number]: Nadia Yeung on 03/15/19 8:[address] LATE ENTRY: 03/15/19 @ 0925 DISCUSSED OPTIONS WITH PATIENT AND DAUGHTER ABOUT SKILLED FACILITIES, DAUGHTER WOULD LIKE HER TO GO TO [facility], BECAUSE IT IS IN THE SAME TOWN HER AND SHE COULD COME VISIT. PATIENS IS AGREEABLE TO THIS. GUIDO SIGNED AND IMM SERVED AND EXPLAINED. REFERRAL SENT TO [facility]. PATIENT WAS DENIED IN PATIENT REHAB. DCP- Discharge Planning Updated by [id number]: Nadia Yeung on 03/05/19 3:[address] Patient Name: KALEIGH GANT Admission Status: ER Accout number: [id number] Admission Date: 03-04-2019 : 1930 Admission Diagnosis: Attending: TEREZA VILLAFANA Current LOS: 1 Anticipated DC Date: Planned Disposition: Home or Self Care Primary Insurance: [facility] MEDICARE SOLUTIONS Discharge Planning Comments: CM met with patient to complete initial dc planning assessment. CM educated patient on the CM role and verbal consent given by patient to complete assessment. Patient lives at home where she is independent with her care, she does not drive out of town so her daughter will take her to things that are out of her town. At discharge patient plans to return home and feels this is a safe discharge. CM discussed availability of home health, rehab services, and medical equipment. She has a BSC, Cane & walker at home. Patient denied known discharge needs at this time. CM will continue to follow and will assist as needed with dc plans/needs. Environmental Science Technician: Nadia Yeung DCPIA - Discharge Planning Initial Assessment Updated by [id number]: Nadia Yeung on 03/05/19 4:11 pm * Is the patient Alert and Oriented? Yes * How many steps to enter\exit or inside your home? * PCP JONATAN * [facility] * Preadmission Environment Home with Family * ADLs Independent * Equipment Bedside Commode Cane Walker * List name and contact numbers for known caregivers / representatives who currently or will assist patient after discharge: MADAI [phone] * Verbal permission to speak to the caregivers and representatives has been obtained from the patient. N/A * Community resources currently utilized None * Additional services required to return to the preadmission environment? No * Can the patient safely return to the preadmission environment? Yes * Has this patient been hospitalized within the prior 30 days at any hospital? No Coverage Notice Reviewer: [id number] Juana Yeung Notice Issued Date-Time: 03/14/2019 9:25 Notice Type: IM Discharge Notice Notice Delivered To: Patient Relationship to Patient: Pellet Machine Operator Name: Delivery Method: HAND - Hand Delivered Keely Days: Prior Verbal Notification: Recipient Understood Notice: Yes Recipient Signature: Yes Med Rec Note Co-signed by Attending: Coverage Notice Comment: Reviewer: [id number] - Nadia Yeung Notice Issued Date-Time: 03/14/2019 9:25 Notice Type: Patient Choice Letter Notice Delivered To: Patient Relationship to Patient: Pellet Machine Operator Name: Delivery Method: HAND - Hand Delivered Keely Days: Prior Verbal Notification: Recipient Understood Notice: Yes Recipient Signature: Yes Med Rec Note Co-signed by Attending: Coverage Notice Comment: [facility] Last DP export: 03/15/19 1:14 p Patient Name: KALEIGH GANT Page [phone] at 1431 All edits/amendments must be made on the electronic document DICTATION DATE: 03/15/19 1431 SERIALS LIBRARIAN: NIURKA 03/15/19 1431 RPT#: [id number] DC DATE: STATUS: ADM IN [facility] [address] [place] [address] END OF REPORT
--- NOTE | 2019-03-15 17:07 | NUR ---
SHE HAS HAD TWO STOOLS THAT WERE PUTTY LIKE AND THEN CALLED AGAIN BUT SHE ONLY HAD A SMEAR. DOPPLER DONE OF LEFT FOOT WITH PULSE POSITIVE. ABLE TO PALPATE ONE ON RIGHT SIDE. DOES NOT WANT TO TRY AND EAT SUPPER AT THIS TIME. SHE WAS ABLE TO HELP ME TURN OVER IN THE BED.
--- NOTE | 2019-03-15 19:16 | NUR ---
PT IN BED. DENIES NEEDS AT THIS TIME.
[2019-03-16] VITALS: BP 164/67
[2019-03-16 04:30] VITALS: BP 142/103
[2019-03-16 04:36] LABS: BASOPHILS 0.3 % (0-2); EOSINOPHILS 2.5 % (0-7); HEMATOCRIT 26.7 % (36.0-48.0); HEMOGLOBIN 9.1 g/dL (12-16); IMMATURE GRANULOCYTES 0.3 % (0-5); LYMPHOCYTES 14.6 % (15-50); MCH 29.7 pg (26.0-34.0); MCHC 34.1 g/dL (31.0-37.0); MCV 87.3 fL (80.0-100.0); MEAN PLATELET VOLUME 10.1 fL (7.4-10.4); MONOCYTES 9.1 % (2-11); NEUTROPHILS 73.2 % (40-80); PLATELET COUNT 348 10x3/uL (130-400); RBC 3.06 10x6/uL (4.00-5.40); RDW 13.9 % (11.5-14.5)
[2019-03-16 04:40] LABS: WBC 7.9 10x3/uL (4.8-10.8)
[2019-03-16 04:52] LABS: ALBUMIN 2.4 g/dL (3.4-5.0); ANION GAP 12.2 mmol/L (8-16); BILIRUBIN - TOTAL 0.5 mg/dL (0.2-1.3); CALCIUM 8.5 mg/dL (8.5-10.1); POTASSIUM - SERUM 4.2 mmol/L (3.5-5.1); PROTEIN - SERUM 6.5 g/dL (6.4-8.2)
--- NOTE | 2019-03-16 07:19 | NUR ---
PT SITTING UP ON SIDE OF THE BED WHEN I ENTERED, SHE WAS TRYING TO USE HER BREATHING TX BUT THE O2 CONNECTION HAD COME LOOSE. I ASSISTED THE PT WITH FIXING IT. PT IS CONFUSED/ALERT. SHE IS A LITTLE SLOW TO RESPOND, ENCOURAGED PT TO LIE DOWN. BED ALARM ON, WORKING PROPPERLY. NO S/S OF ACUTE DISTRESS NOTED, BREATHS EVEN/REGULAR. CL IN REACH, SRX2.
[2019-03-16 08:10] VITALS: BP 126/74
--- NOTE | 2019-03-16 11:40 | NUR ---
PT ATTEMTPED TO GET OUT OF BED, WENT IN AND CORRECTED. HELPED PT STAND AND AID ASSISTED WITH LINNEN CHANGE. PT HAS NO COMPLAINTS/CONCERNS/QUESTIONS AT THIS TIME. CL IN REACH, SRX2, BED LOW AND LOCKED, BED ALARM ON.
[2019-03-16 12:15] VITALS: BP 118/68
--- NOTE | 2019-03-16 14:08 | NUR ---
PT FAMILY AT BEDSIDE, ANSWERED ALL QUESTIONS TO BE BEST OF MY ABILITY. FAMILY INSTRUCTED TO TELL ME WHEN THEY LEAVE SO I COULD TURN BED ALARM ON. CL IN JUAN, SRX2.
--- NOTE | 2019-03-16 15:05 | NUR ---
ASSISTED PT WITH MAX ASSIST TO BEDSIDE COMMODE. PT WAS VERY WEAK, WE HAVE DECIDED IT IS BEST FOR HER TO CONTINUE TO USE THE BEDPAN AT THIS TIME D/T HER WEAKNESS AND EXTREME PAIN CAUSED BY MOVING
[2019-03-16 15:24] VITALS: BP 122/71
--- NOTE | 2019-03-16 16:57 | NUR ---
DAUGHTER AT BEDSIDE, ASSISTED PT UP IN BED FOR SUPPER. NO COMPALINTS ATT HSI TIEM, ALL QUESTIONS ANSWERED TO THE BEST OF MY ABILITY. CL IN REACH, SRX2.
--- NOTE | 2019-03-16 18:32 | NUR ---
PT LYING IN BED ASLEEP, BREATHS EVEN/REGUALR UNLABORED. NO SIGNS/SYMPTOMS OF DISTRESS. CL IN REACH, SRX2, BED LOW/LOCKED, BED ALARM ON.
--- NOTE | 2019-03-16 20:00 | NUR ---
INITIAL ROUNDS AND ASSESSMENT COMPLETED. PT RESTING IN BED. ROUSES UP EASILY. TODAY IS HER BIRTHDAY AND PT IS IN GOOD SPIRITS. SR PER TELEMETRY. NONLABORED RESPIRATIONS ON ROOM AIR. SALINE LOCK TO LEFT HAND. DOPPLER PEDAL PULSES TO BOTH FEET. LEFT LOWER LEG HAS REDNESS FROM MID CALF TO TOES AND IS PAINFUL TO TOUCH. BED ALARM IN PLACE. CALL LIGHT IN REACH. CPOC.
[2019-03-16 20:27] VITALS: BP 124/43
[2019-03-17] VITALS: BP 128/46
[2019-03-17 04:00] VITALS: BP 156/44
[2019-03-17 04:42] LABS: BASOPHILS 0.4 % (0-2); EOSINOPHILS 4.6 % (0-7); HEMOGLOBIN 9.1 g/dL (12-16); IMMATURE GRANULOCYTES 0.3 % (0-5); LYMPHOCYTES 19.9 % (15-50); MCH 29.5 pg (26.0-34.0); MCHC 33.7 g/dL (31.0-37.0); MCV 87.7 fL (80.0-100.0); MEAN PLATELET VOLUME 9.9 fL (7.4-10.4); MONOCYTES 9.1 % (2-11); NEUTROPHILS 65.7 % (40-80); PLATELET COUNT 359 10x3/uL (130-400); RBC 3.08 10x6/uL (4.00-5.40); WBC 7.4 10x3/uL (4.8-10.8)
[2019-03-17 04:59] LABS: ALBUMIN 2.5 g/dL (3.4-5.0); ANION GAP 12.1 mmol/L (8-16); BILIRUBIN - TOTAL 0.53 mg/dL (0.2-1.3); CALCIUM 8.5 mg/dL (8.5-10.1); CREATININE - SERUM 1.2 mg/dL (0.6-1.3); POTASSIUM - SERUM 4.1 mmol/L (3.5-5.1); PROTEIN - SERUM 6.7 g/dL (6.4-8.2)
[2019-03-17 08:09] VITALS: BP 106/71
--- NOTE | 2019-03-17 09:30 | NUR ---
PT AWAKE AND ORIENTED. PHYSICAL THERAPY IN ROOM WHEN I ENTERED. PT HAD VERY DIFFICULT TIME GETTING UP AND MANORVERING. SHE WAS OBVIOUSLY SCARED TO FALL. ASSISTED PHYICAL THERAPY WITH GETTING PT BACK IN BED, READJUSTED AND MOVED UP. PT HAS NO COMPLAINTS/CONCERNS/QUESTIONS THIS AM. NO FAMILY AT BEDSIDE AT THIS TIME. CL IN REACH, SRX2.
--- NOTE | 2019-03-17 10:24 | NUR ---
ATTEMPTED TO COLLECT ORDERED UA, PT HAD STOOL MIXED IN. USED BEDPAN, PTUNABLE TO GET UP TO BEDSIDE COMMODE AT THIS TIME. UNABLE TO COLLECT U/A D/T STOOL. WE REATEMPT AT PTS NEXT BEDPAN USAGE.
[2019-03-17 11:56] VITALS: BP 112/66
--- NOTE | 2019-03-17 12:59 | NUR ---
I have reviewed this patient and I concur with the Shift Assessment completed by the Licensed Practical Nurse today this shift.
--- NOTE | 2019-03-17 13:00 | NUR ---
I have reviewed this patient and I concur with the Shift Assessment completed by the Licensed Practical Nurse today this shift.
--- NOTE | 2019-03-17 15:50 | NUR ---
ASSISTED PT TO BEDPAN, PT STATES AFTER GETTING OFF THE ROSAS SHE WOULD SEBAS TO TURN ON HER SIDE FOR A WHILE AND ATTEMPT TO EXERCISE HER LEFT, INJURED FOOT. WILL ATTEMPTT O COLLECT SPECIMEN ORDERED. CL IN REACH, DAUGHTER AT BEDSIDE, SRX2. BED ALARM ON
[2019-03-17 16:14] VITALS: BP 108/45
--- NOTE | 2019-03-17 16:30 | NUR ---
COLLECTED URINE SPECIMEN.
[2019-03-17 16:44] LABS: APPEARANCE HAZY (CLEAR); BILIRUBIN NEGATIVE (NEGATIVE); COLOR YELLOW (YELLOW); GLUCOSE NEGATIVE (NEGATIVE); KETONE NEGATIVE (NEGATIVE); NITRITE POSITIVE (NEGATIVE); PROTEIN NEGATIVE (NEGATIVE); SPECIFIC GRAVITY 1.015 (1.005-1.020); UROBILINOGEN NORMAL (NORMAL)
[2019-03-17 16:46] LABS: BACTERIA MODERATE /hpf (NONE SEEN); EPITHELIAL CELLS 0-5 /hpf (0-5); WHITE CELLS - URINE 0-5 /hpf (0-5)
[2019-03-17 16:47] LABS: TALC POWDER CRYSTALS 25-50 /hpf (NONE SEEN)
--- NOTE | 2019-03-17 18:09 | NUR ---
PT OFF BEDPAN, CLEAN AND DRY AT THIS TIME. NO COMPLAINTS, CONCERNS, QUETIONS, COMMENTS AT THIS TIME. SRX2, BED ALARM ON, NO FAMILY PRESENT AT THIS TIME. CL IN REACH, SRX2.
[2019-03-17 20:00] VITALS: BP 132/54
--- NOTE | 2019-03-17 20:00 | NUR ---
INITIAL ROUNDS AND ASSESSMENT COMPLETED. PT RESTING IN BED. FACIAL GRIMACES, WINCES WHEN HER LEFT LEG IS MOVED. STATES SHE IS NOT COMFORTABLE. PULLED UP AND REPOSITIONED. SALINE LOCK TO LEFT HAND. SR PER TELEMETRY. CPOC.
--- NOTE | 2019-03-17 21:30 | NUR ---
PT WAS BATHED PER ROLLER CHECKER AND ALSO IS NOW DRINKING A GLASS OF CRANBERRY JUICE.
--- NOTE | 2019-03-17 22:04 | NUR ---
BEDTIME MEDS GIVEN. ULTRAM FOR OPTIMAL LEVEL OF COMFORT. ENCOURAGED FLUID INTAKE. OFFERED. BEDTIME SNACK. PT WITH SAD AFFECT. CONTINUE TO MONITOR.
[2019-03-18 00:18] VITALS: BP 144/49
--- NOTE | 2019-03-18 03:34 | NUR ---
PT UP TO BSC, THEN ASSISTED BACK TO BED AND REPOSITIONED. SHE ACCIDENTALLY PULLED OUT HER IV AND DOES NOT WANT ANOTHER ONE UNLESS THE DOCTOR SAYS SHE NEEDS IT. CALL LIGHT IN REACH. CPOC.
[2019-03-18 04:00] VITALS: BP 131/97
[2019-03-18 05:30] LABS: BASOPHILS 0.2 % (0-2); EOSINOPHILS 3.2 % (0-7); HEMOGLOBIN 10.2 g/dL (12-16); IMMATURE GRANULOCYTES 0.2 % (0-5); LYMPHOCYTES 10.8 % (15-50); MCH 29.8 pg (26.0-34.0); MCV 87.7 fL (80.0-100.0); MEAN PLATELET VOLUME 10.3 fL (7.4-10.4); MONOCYTES 9.4 % (2-11); NEUTROPHILS 76.2 % (40-80); RBC 3.42 10x6/uL (4.00-5.40); RDW 13.8 % (11.5-14.5)
[2019-03-18 05:46] LABS: PLATELET COUNT 441 10x3/uL (130-400); WBC 9.3 10x3/uL (4.8-10.8)
[2019-03-18 06:07] LABS: ALBUMIN 2.7 g/dL (3.4-5.0); BILIRUBIN - TOTAL 0.62 mg/dL (0.2-1.3); CALCIUM 8.7 mg/dL (8.5-10.1); CARBON DIOXIDE 24.3 mmol/L (21.0-32.0); CREATININE - SERUM 1.1 mg/dL (0.6-1.3); MAGNESIUM - SERUM 2.3 mg/dL (1.8-2.4); PHOSPHOROUS 3.1 mg/dL (2.5-4.9); POTASSIUM - SERUM 4.3 mmol/L (3.5-5.1); PROTEIN - SERUM 7.3 g/dL (6.4-8.2)
--- NOTE | 2019-03-18 07:40 | NUR ---
PT AWAKE AND ORIENTED IN BED. DAUGHTER AT BEDSIDE, ALL QUESTIONS ANSWERED TO THE BEST OF MY ABILITIES. PT REFUSES IV REPLACEMENT AT THSI TIME, STATING SHE WILL PUT ANOTHER ONE IN WHEN THE DR TELLS HER SHE HAS TOO. CL IN REACH, SRX2.
[2019-03-18 08:03] VITALS: BP 138/44
[2019-03-18 11:41] VITALS: BP 107/41
--- NOTE | 2019-03-18 13:11 | MORECARE ---
CASE MANAGEMENT DISCHARGE SUMMARY PATIENT: KALEIGH GANT UNIT: [id number] ADM DATE: 03/04/19 AGE: 89 : 32 SEX: F ROOM/BED: D.2109 AUTHOR: YESSICA,DOC PHYSICIAN: REFERRING PHYSICIAN: TEREZA VILLAFANA MD DATE OF SERVICE: 03/18/19 Discharge Plan Patient Name: KALEIGH GANT Facility: [facility]:[place] : 1930 Planned Disposition: Home or Self Care Anticipated Discharge Date: Discharge Date: Expected LOS: Initial Reviewer: [id number] Initial Review Date: 03/04/2019 Generated: 03/18/19 2:10 pm Comments DCP- Discharge Planning Updated by [id number]: Parag Morton on 03/18/19 12:[address] Patient Name: KALEIGH GANT Encounter No: [id number] : 1930 Primary Insurance: [facility] MED[employer] SOLUT[employer] Anticipated DC Date: Planned Disposition: Home or Self Care External Planned Provider: [facility], MEDICARE REHAB BED DCP follow-up note: CM RECEIVED CALL FROM [facility], , WHO ADVISED THAT PT'S INSURANCE AUTHORIZATION AND CM WILL NEED TO SEND REFERRAL UPDATE WITH PHYSICAL AND OCCUPATIONAL THERAPY NOTES. CM REVIEWED CHART, OCCUPATIONAL THERAPY NOT CURRENTLY IN PLACE, ORDER OBTAINED. CM RECEIVED INSURANCE DENIAL FOR INPATIENT REHAB, PROVIDED PT WITH COPY IN ROOM. PT SIGNED FOR RECEIPT OF DENIAL FOR INPATIENT REHAB, SIGNED COPY TO CHART. PT REPORTS PLAN TO GO TO [facility] FOR REHAB. CM WAITING OCCUPATIONAL THERAPY EVALUATION AND WILL FAX TO [facility] AT [phone] WHEN COMPLETED AND DOCUMENTED. ONCE [facility] HAS NEEDED INFORMATION, THEY WILL RESUBMIT FOR INSURANCE AUTHORIZATION FOR PT TO ENTER ASSISTED REHAB. Parag Morton, CASE MANAGEMENT DCP- Discharge Planning Updated by [email or web address]: Sharon Cao on 03/15/19 1:[address] CM received notice that insurance auth approved for [facility] [id number]. Auth will in 72hrs. If patient discharges on Monday she will need new auth. CM spoke with Dr. Wilkins he did not want to discharge today he stated possibly tomorrow. CM called [facility] and she stated that Rehab would accept patient over weekend if family could provide transportation. CM spoke with both daughters and they have agreed to transport patient if discharged. CM notified Marcos that family could transport if discharged. Marcos states for CM to call facility [facility] [phone] and let them know if discharging so they will be ready when patient arrives. CM will continue to follow and assist as needed with discharge planning / needs. DCP- Discharge Planning Updated by [id number]: Nadia Yeung on 03/15/19 8:[address] LATE ENTRY: 03/15/19 @ 0925 DISCUSSED OPTIONS WITH PATIENT AND DAUGHTER ABOUT SKILLED FACILITIES, DAUGHTER WOULD LIKE HER TO GO TO [facility], BECAUSE IT IS IN THE SAME TOWN HER AND SHE COULD COME VISIT. JACOB IS AGREEABLE TO THIS. GUIDO SIGNED AND IMM SERVED AND EXPLAINED. REFERRAL SENT TO [facility] FOR [facility]. PATIENT WAS DENIED IN PATIENT REHAB. DCP- Discharge Planning Updated by [id number]: Nadia Yeung on 03/05/19 3:[address] Patient Name: KALEIGH GANT Admission Status: ER Accout number: [id number] Admission Date: 03-04-2019 : 1930 Admission Diagnosis: Attending: TEREZA VILLAFANA Current LOS: 1 Anticipated DC Date: Planned Disposition: Home or Self Care Primary Insurance: [facility] MEDICARE SOLUTIONS Discharge Planning Comments: CM met with patient to complete initial dc planning assessment. CM educated patient on the CM role and verbal consent given by patient to complete assessment. Patient lives at home where she is independent with her care, she does not drive out of town so her daughter will take her to things that are out of her town. At discharge patient plans to return home and feels this is a safe discharge. CM discussed availability of home health, rehab services, and medical equipment. She has a BSC, Cane & walker at home. Patient denied known discharge needs at this time. CM will continue to follow and will assist as needed with dc plans/needs. Artillery Meteorological Man: Nadia Yeung DCPIA - Discharge Planning Initial Assessment Updated by [id number]: Nadia Yeung on 03/05/19 4:11 pm * Is the patient Alert and Oriented? Yes * How many steps to enter\exit or inside your home? * PCP JONATAN * Pharmacy [facility] * Preadmission Environment Home with Family * ADLs Independent * Equipment Bedside Commode Cane Walker * List name and contact numbers for known caregivers / representatives who currently or will assist patient after discharge: MADAI [phone] * Verbal permission to speak to the caregivers and representatives has been obtained from the patient. N/A * Community resources currently utilized None * Additional services required to return to the preadmission environment? No * Can the patient safely return to the preadmission environment? Yes * Has this patient been hospitalized within the prior 30 days at any hospital? No Coverage Notice Reviewer: [id number] Juana Yeung Notice Issued Date-Time: 03/14/2019 9:25 Notice Type: IM Discharge Notice Notice Delivered To: Patient Relationship to Patient: Processing Specialist Name: Delivery Method: HAND - Hand Delivered Keely Days: Prior Verbal Notification: Recipient Understood Notice: Yes Recipient Signature: Yes Med Rec Note Co-signed by Attending: Coverage Notice Comment: Reviewer: [email or web address] Juana Yeung Notice Issued Date-Time: 03/14/2019 9:25 Notice Type: Patient Choice Letter Notice Delivered To: Patient Relationship to Patient: Processing Specialist Name: Delivery Method: HAND - Hand Delivered Keely Days: Prior Verbal Notification: Recipient Understood Notice: Yes Recipient Signature: Yes Med Rec Note Co-signed by Attending: Coverage Notice Comment: [facility] Last DP export: 03/15/19 1:31 p Patient Name: KALEIGH GANT Page [id number] at 1311 All edits/amendments must be made on the electronic document DICTATION DATE: 03/18/19 1310 CONE MACHINE FEEDER: NIURKA 03/18/19 1310 RPT#: [id number] DC DATE: STATUS: ADM IN [facility] [address] [place] [address] END OF REPORT
--- NOTE | 2019-03-18 13:17 | NUR ---
I have reviewed this patient and I concur with the Shift Assessment completed by the Licensed Practical Nurse today this shift.
[2019-03-18 15:36] VITALS: BP 113/38
[2019-03-18 16:08] LABS: CKMB 1.3 U/L (0.0-3.6); CREATINE KINASE 158 UL (21-215); TROPONIN-I 0.021 ng/mL (0.000-0.060)
--- NOTE | 2019-03-18 19:35 | NUR ---
PT RESTING IN BED, SUPINE UPON ENTERING. ALERT/CONFUSED. SLOW TO RESPOND TO QUESTIONS. DENIES ANY NEEDS AT THIS TIME. BED IN LOWEST POSITION, BED RAILS X2, CALL LIGHT WITHIN REACH. WILL CONTINUE TO MONITOR.
[2019-03-18 20:00] VITALS: BP 133/50
--- NOTE | 2019-03-18 20:59 | NUR ---
PT SLEEPING, EASILY AROUSED. ADMINISTERED EVENING MEDICATIONS AT THIS TIME. NO TROUBLE SWALLOWING. DENIES OTHER NEEDS AT THIS TIME. BED IN LOWEST POSITION, BED RAILS X2, CALL LIGHT WITHIN REACH. WILL CONTINUE TO MONITOR.
[2019-03-18 21:40] LABS: CKMB 1.4 U/L (0.0-3.6); CREATINE KINASE 144 UL (21-215); TROPONIN-I 0.025 ng/mL (0.000-0.060)
[2019-03-19] VITALS: BP 134/59
--- NOTE | 2019-03-19 00:13 | NUR ---
PT RESTING SUPINE IN BED. NEURO CHECK PERFORMED. PT COMPLAINT OF RIGHT HEEL PAIN, READJUSTED AND PLACED PILLOW UNDER LEG, WILL REASSESS. DENIES OTHER NEEDS AT THIS TIME. BED IN LOWEST POSITION, BED RAILS X2, CALL LIGHT WITHIN REACH. WILL CONTINUE TO MONITOR.
--- NOTE | 2019-03-19 00:47 | NUR ---
I have reviewed this patient and I concur with the Shift Assessment completed by the Licensed Practical Nurse today this shift.
--- NOTE | 2019-03-19 02:01 | NUR ---
NEW IV PLACED IN PT RIGHT FA, BY TAYLER KIRKLAND. IV IS PATENT AND SALINE LOCKED. PT TOLERATED PROCEDURE WELL. DENIES OTHER NEEDS AT THIS TIME. BED IN LOWEST POSITION, BED RAILS X2, CALL LIGHT WITHIN REACH. WILL CONTINUE TO MONITOR.
[2019-03-19 02:50] LABS: BASOPHILS 0.3 % (0-2); EOSINOPHILS 4.3 % (0-7); HEMATOCRIT 25.6 % (36.0-48.0); HEMOGLOBIN 8.8 g/dL (12-16); IMMATURE GRANULOCYTES 0.3 % (0-5); LYMPHOCYTES 19.4 % (15-50); MCH 29.8 pg (26.0-34.0); MCHC 34.4 g/dL (31.0-37.0); MCV 86.8 fL (80.0-100.0); MEAN PLATELET VOLUME 9.7 fL (7.4-10.4); NEUTROPHILS 67.7 % (40-80); PLATELET COUNT 411 10x3/uL (130-400); RBC 2.95 10x6/uL (4.00-5.40); RDW 13.9 % (11.5-14.5); WBC 7.6 10x3/uL (4.8-10.8)
--- NOTE | 2019-03-19 03:12 | NUR ---
PT RESTING IN BED WITH EYES CLOSED, BREATHING EVEN AND UNLABORED. BED IN LOWEST POSITION, BED RAILS X2, CALL LIGHT WITHIN REACH. WILL CONTINUE TO MONITOR.
[2019-03-19 03:22] LABS: ALBUMIN 2.4 g/dL (3.4-5.0); ALKALINE PHOSPHATASE 86 U/L (46-116); ALT (SGPT) 39 U/L (10-68); BILIRUBIN - TOTAL 0.47 mg/dL (0.2-1.3); CALC OSMOLALITY 279 mosm/kg (275-300); CALCIUM 8.2 mg/dL (8.5-10.1); CARBON DIOXIDE 25.4 mmol/L (21.0-32.0); CHLORIDE - SERUM 102 mmol/L (98-107); CKMB 0.9 U/L (0.0-3.6); CREATINE KINASE 110 UL (21-215); CREATININE - SERUM 1.3 mg/dL (0.6-1.3); GLUCOSE 101 mg/dL (74-106); MAGNESIUM - SERUM 2.3 mg/dL (1.8-2.4); POTASSIUM - SERUM 4.4 mmol/L (3.5-5.1); PROTEIN - SERUM 6.5 g/dL (6.4-8.2); SODIUM 135 mmol/L (136-145); TROPONIN-I 0.033 ng/mL (0.000-0.060); eGFR NON AFRICAN AMERICAN 41 mL/min (90-120)
[2019-03-19 03:26] LABS: UREA NITROGEN 41 mg/dL (7-18)
[2019-03-19 04:00] VITALS: BP 125/43
--- NOTE | 2019-03-19 05:50 | NUR ---
PT RESTING SUPINE IN BED WITH EYES CLOSED. NO S/S OF DISTRESS, BREATHING EVEN AND UNLABORED. BED IN LOWEST POSITION, BED RAILS X2, CALL LIGHT WITHIN REACH. WILL CONTINUE TO MONITOR.
--- NOTE | 2019-03-19 07:30 | NUR ---
A/A/OX4. DENIES ANY INCREASED PAIN OR DISCOMFORT AT PRESENT TIME. LEFT LOWER LEG REMAINS RED AND SLIGHTLY SWOLLEN. PEDAL PULSES FAINTLY PALPABLE BILATERALLY AND WEAK WITH DOPPLER. NO REQUESTS VOICED. DAUGHTER AT BEDSIDE. ASSESSMENT COMPLETED AND WILL CONTINUE POC. BED IN LOWER LOCKED POSITION AND CALL LIGHT IN REACH.
[2019-03-19 08:13] VITALS: BP 137/50
--- NOTE | 2019-03-19 12:26 | NUR ---
Nutrition Follow-up: Per pt interview & chart review, pt reports poor appetite/PO intake yesterday, although pt ate ~75% of meal this AM; reports appetite better today. Diet: Cardiac PO intake: 58% avg of last 10 meals BM: 03/19 Wt stable Labs noted: Ca 8.2, Na 135, Alb 2.4 Rec continue current diet as tolerated. Offer nutrition supplements. [place] food preferences. RD following.
--- NOTE | 2019-03-19 12:48 | MORECARE ---
CASE MANAGEMENT DISCHARGE SUMMARY PATIENT: KALEIGH GANT UNIT: [id number] ADM DATE: 03/04/19 AGE: 89 : 34 SEX: F ROOM/BED: D.2109 AUTHOR: ODALYS JUAN PHYSICIAN: REFERRING PHYSICIAN: TEREZA VILLAFANA MD DATE OF SERVICE: 03/19/19 Discharge Plan Patient Name: KALEIGH GANT Facility: [facility]:[place] : 1930 Planned Disposition: Nursing Home Facility Anticipated Discharge Date: 03/20/19 Discharge Date: Expected LOS: 16 Initial Reviewer: [id number] Initial Review Date: 03/04/2019 Generated: 03/19/19 1:48 pm Comments DCP- Discharge Planning Updated by [id number]: Parag Morton on 03/19/19 11:[address] Patient Name: KALEIGH GANT Encounter No: [id number] : 1930 Primary Insurance: [facility] MEDICARE SOLUTIONS Anticipated DC Date: 03-20-2019 Planned Disposition: Nursing Home Facility External Planned Provider: [facility], MEDICARE REHAB BED DCP follow-up note: CM FAXED UPDATE TO [facility], [facility] TO SUBM[facility] TO INSURANCE FOR AUTHORIZATION OF REHAB SERVICES. CM SPOKE TO PT AND DAUGHTER, JACIEL MAYA IN ROOM, BOTH IN AGREEMENT WITH DISCHARGE TO [facility]. IMPORTANT MESSAGE FROM MEDICARE PROVIDED AND EXPLAINED. CM WAITING INSURANCE AUTHORIZATION FROM [facility]. ONCE AUTHORIZED AND DISCHARGE RECEIVED, FAX DISCHARGE INFORMATION TO [facility] AT [phone]; NURSE REPORT TO BE CALLED TO [facility] AT [phone]. [facility] TO ARRANGE VAN TRANSPORTATION. GISEL Vizcarra DCP- Discharge Planning Updated by [id number]: Parag Morton on 03/18/19 12:[address] Patient Name: KALEIGH GANT Encounter No: [id number] : 1930 Primary Insurance: [facility] MEDICARE SOLUTIONS Anticipated DC Date: Planned Disposition: Home or Self Care External Planned Provider: [facility], MEDICARE REHAB BED DCP follow-up note: CM RECEIVED CALL FROM MARC[facility] OF [facility], , WHO ADVISED THAT PT'S INSURANCE AUTHORIZATION AND CM WILL NEED TO SEND REFERRAL UPDATE WITH PHYSICAL AND OCCUPATIONAL THERAPY NOTES. CM REVIEWED CHART, OCCUPATIONAL THERAPY NOT CURRENTLY IN PLACE, ORDER OBTAINED. CM RECEIVED INSURANCE DENIAL FOR INPATIENT REHAB, PROVIDED PT WITH COPY IN ROOM. PT SIGNED FOR RECEIPT OF DENIAL FOR INPATIENT REHAB, SIGNED COPY TO CHART. PT REPORTS PLAN TO GO TO [facility] FOR REHAB. CM WAITING OCCUPATIONAL THERAPY EVALUATION AND WILL FAX TO [facility] AT [phone] WHEN COMPLETED AND DOCUMENTED. ONCE [facility] HAS NEEDED INFORMATION, THEY WILL RESUBMIT FOR INSURANCE AUTHORIZATION FOR PT TO ENTER LONG TERM REHAB. Parag Morton, CASE MANAGEMENT DCP- Discharge Planning Updated by [email or web address]: Sharon Cao on 03/15/19 1:[address] CM received notice [id number]. Auth will in 72hrs. If patient discharges on Monday she will need new auth. CM spoke with Dr. Wilkins he did not want to discharge today he stated possibly tomorrow. CM called [facility] and she stated that Rehab would accept patient over weekend if family could provide transportation. CM spoke with both daughters and they have agreed to transport patient if discharged. CM notified Marcos that family could transport if discharged. Marcos states for CM to call facility [facility] [phone] and let them know if discharging so they will be ready when patient arrives. CM will continue to follow and assist as needed with discharge planning / needs. DCP- Discharge Planning Updated by [id number]: Nadia Yeung on 03/15/19 8:[address] LATE ENTRY: 03/15/19 @ 0925 DISCUSSED OPTIONS WITH PATIENT AND DAUGHTER ABOUT SKILLED FACILITIES, DAUGHTER WOULD LIKE HER TO GO TO [facility], BECAUSE IT IS IN THE SAME TOWN HER AND SHE COULD COME VISIT. JACOB IS AGREEABLE TO THIS. GUIDO SIGNED AND IMM SERVED AND EXPLAINED. REFERRAL SENT TO [facility] FOR [facility]. PATIENT WAS DENIED IN PATIENT REHAB. DCP- Discharge Planning Updated by [id number]: Nadia Yeung on 03/05/19 3:[address] Patient Name: KALEIGH GANT Admission Status: ER Accout number: [id number] Admission Date: 03-04-2019 : 1930 Admission Diagnosis: Attending: TEREZA VILLAFANA Current LOS: 1 Anticipated DC Date: Planned Disposition: Home or Self Care Primary Insurance: [facility] MEDICARE SOLUTIONS Discharge Planning Comments: CM met with patient to complete initial dc planning assessment. CM educated patient on the CM role and verbal consent given by patient to complete assessment. Patient lives at home where she is independent with her care, she does not drive out of town so her daughter will take her to things that are out of her town. At discharge patient plans to return home and feels this is a safe discharge. CM discussed availability of home health, rehab services, and medical equipment. She has a BSC, Cane & walker at home. Patient denied known discharge needs at this time. CM will continue to follow and will assist as needed with dc plans/needs. Media Analytics Manager: Nadia Yeung DCPIA - Discharge Planning Initial Assessment Updated by [id number]: Nadia Yeung on 03/05/19 4:11 pm * Is the patient Alert and Oriented? Yes * How many steps to enter\exit or inside your home? * PCP JONATAN * Pharmacy [facility] * Preadmission Environment Home with Family * ADLs Independent * Equipment Bedside Commode Cane Walker * List name and contact numbers for known caregivers / representatives who currently or will assist patient after discharge: MADAI [phone] * Verbal permission to speak to the caregivers and representatives has been obtained from the patient. N/A * Community resources currently utilized None * Additional services required to return to the preadmission environment? No * Can the patient safely return to the preadmission environment? Yes * Has this patient been hospitalized within the prior 30 days at any hospital? No Coverage Notice Reviewer: [id number] - Nadia Yeung Notice Issued Date-Time: 03/14/2019 9:25 Notice Type: IM Discharge Notice Notice Delivered To: Patient Relationship to Patient: Kick Boxer Name: Delivery Method: HAND - Hand Delivered Keely Days: Prior Verbal Notification: Recipient Understood Notice: Yes Recipient Signature: Yes Med Rec Note Co-signed by Attending: Coverage Notice Comment: Reviewer: [id number] - Nadia Yeung Notice Issued Date-Time: 03/14/2019 9:25 Notice Type: Patient Choice Letter Notice Delivered To: Patient Relationship to Patient: Kick Boxer Name: Delivery Method: HAND - Hand Delivered Keely Days: Prior Verbal Notification: Recipient Understood Notice: Yes Recipient Signature: Yes Med Rec Note Co-signed by Attending: Coverage Notice Comment: [facility] Reviewer: [id number] - Parag Morton Notice Issued Date-Time: 03/19/2019 12:30 Notice Type: IM Discharge Notice Notice Delivered To: Patient Relationship to Patient: Kick Boxer Name: Delivery Method: HAND - Hand Delivered Keely Days: Prior Verbal Notification: Recipient Understood Notice: Yes Recipient Signature: Yes Med Rec Note Co-signed by Attending: Coverage Notice Comment: Last DP export: 03/18/19 12:11 p Patient Name: KALEIGH GANT Page [id number] at 1248 All edits/amendments must be made on the electronic document DICTATION DATE: 03/19/19 1248 ORAL SURGERY TECHNICIAN: NIURKA 03/19/19 1248 RPT#: [id number] DC DATE: STATUS: ADM IN [facility] [address] [place] [address] END OF REPORT
[2019-03-19 16:05] VITALS: BP 134/45
--- NOTE | 2019-03-19 16:50 | NUR ---
I have reviewed this patient and I concur with the Shift Assessment completed by the Licensed Practical Nurse today this shift.
--- NOTE | 2019-03-19 19:22 | NUR ---
PT RESTING SUPINE IN BED UPON ENTERING, EASILY AROUSED. BREATHING EVEN AND UNLABORED NO S/S OF DISTRESS. DENIES ANY NEEDS AT THIS TIME. BED IN LOWEST POSITION, BED RAILS X3, CALL LIGHT WITHIN REAHCH. WILL CONTINUE TO MONITOR.
[2019-03-19 20:00] VITALS: BP 147/67
--- NOTE | 2019-03-19 21:57 | NUR ---
PT SUPINE UPON ENTERING. EVENING MEDICATION GIVEN AT THIS TIME. NO DIFFICULTY SWALLOWING. DENIES ANY NEEDS AT THIS TIME. BED IN LOWEST POSITION, BED RAILS X3, CALL LIGHT WITHIN REACH. WILL CONTINUE TO MONITOR.
--- NOTE | 2019-03-19 23:15 | NUR ---
PT RESTING IN BED UP RIGHT UPON ENTERING. NO S/S OF DISTRESS. ASSESSMENT PERFORMED AT THIS TIME. PT DENIES ANY NEEDS AT THIS TIME. BED IN LOWEST POSITION, BED RAILS X3, CALL LIGHT WITHIN REACH. PT LEGS ELEVATED ON PILLOW. WILL CONTINUE TO MONITOR.
[2019-03-20 00:05] VITALS: BP 147/60
--- NOTE | 2019-03-20 01:40 | NUR ---
PT RESTING SUPINE IN BED WITH EYES CLOSED. BREATHING EVEN AND UNLABORED, NO S/S OF DISTRESS. BED IN LOWEST POSITION, BED RAILS X3, CALL LIGHT WITHIN REACH. WILL CONTINUE TO MONITOR.
--- NOTE | 2019-03-20 02:39 | NUR ---
I have reviewed this patient and I concur with the Shift Assessment completed by the Licensed Practical Nurse today this shift.
--- NOTE | 2019-03-20 03:39 | NUR ---
ASSISTED PT ONTO BED ROSAS, DENIES OTHER NEEDS AT THIS TIME. BED IN LOWEST POSITION, BED RAILS X3, CALL LIGHT WITHIN REACH. WILL CONTINUE TO MONITOR.
[2019-03-20 04:14] VITALS: BP 140/55
[2019-03-20 04:31] LABS: BASOPHILS 0.3 % (0-2); EOSINOPHILS 4.4 % (0-7); HEMATOCRIT 25.8 % (36.0-48.0); HEMOGLOBIN 8.8 g/dL (12-16); IMMATURE GRANULOCYTES 0.5 % (0-5); LYMPHOCYTES 18.3 % (15-50); MCH 29.5 pg (26.0-34.0); MCHC 34.1 g/dL (31.0-37.0); MCV 86.6 fL (80.0-100.0); MEAN PLATELET VOLUME 9.9 fL (7.4-10.4); MONOCYTES 7.9 % (2-11); NEUTROPHILS 68.6 % (40-80); PLATELET COUNT 472 10x3/uL (130-400); RBC 2.98 10x6/uL (4.00-5.40); RDW 13.7 % (11.5-14.5); WBC 7.6 10x3/uL (4.8-10.8)
[2019-03-20 04:48] LABS: ANION GAP 12.8 mmol/L (8-16); CALCIUM 8.4 mg/dL (8.5-10.1); CARBON DIOXIDE 24.5 mmol/L (21.0-32.0); CREATININE - SERUM 1.1 mg/dL (0.6-1.3); POTASSIUM - SERUM 4.3 mmol/L (3.5-5.1)
--- NOTE | 2019-03-20 05:55 | NUR ---
PT RESTING SUPINE IN BED WITH EYES CLOSED, BREATING EVEN AND UNLABORED, NO S/S OF DISTRESS. BED IN LOWETS POSITION, BED RAILS X2, CALL LIGHT WITHIN REACH. WILL CONTINUE TO MONITOR.
[2019-03-20 08:31] VITALS: BP 108/64
[2019-03-20 11:34] VITALS: BP 112/69
[2019-03-20] MEDS ORDERED: LEVOFLOXACIN500 MG PO (11:47)
[2019-03-20] MEDS ORDERED: NEURONTIN 300300 MG PO (11:48)
--- NOTE | 2019-03-20 12:41 | MORECARE ---
CASE MANAGEMENT DISCHARGE SUMMARY PATIENT: KALEIGH GANT UNIT: [id number] ADM DATE: 03/04/19 AGE: 89 : 32 SEX: F ROOM/BED: D.2106 AUTHOR: YESSICA,DOC PHYSICIAN: REFERRING PHYSICIAN: TEREZA VILLAFANA MD DATE OF SERVICE: 03/20/19 Discharge Plan Patient Name: KALEIGH GANT Facility: [facility]:Deputy : 1930 Planned Disposition: Longterm Facility Anticipated Discharge Date: 03/20/19 Discharge Date: Expected LOS: 16 Initial Reviewer: [id number] Initial Review Date: 03/04/2019 Generated: 03/20/19 1:41 pm Comments DCP- Discharge Planning Updated by [id number]: Neyda Aceves on 03/20/19 11:[address] MD HAS ORDERED DISCHARGE IF ACCEPTED BY INSURANCE FOR SNF. SENT MESSAGE TO MARCOS TRAN, CLINICAL [facility]AS[facility] FOR [facility]. SHE STATED THAT INSURANCE HAS APPROVED AND THEY WILL ACCEPT TODAY IF THE DAUGHTER CAN TRANSPORT. I WENT INTO THE ROOM AND DAUGHTER WAS AT BEDSIDE. SHE STATED THAT SHE WILL BE GLAD TO TRANSPORT AND ASKED HOW LONG IT WOULD BE. I EXPLAINED THAT THE PATIENT WOULD BE THE NEXT DISCHARGE TO BE DONE SO IT SHOULDN'T BE THAT LONG. SHE QUESTIONED IF WE COULD HAVE HER OUT BY 3 PM. I EXPLAINED THAT WE COULD PROBABLY HAVE HER OUT WELL BEFORE THEN. EXPLAINED TO CHIP TESTER THAT THE DAUGHTER WOULD TRANSPORT, EXPLAINED TO CIRCULAR KNITTER HELPER THAT PT ACCEPTED AND DAUGHTER REQUESTING TO BE OUT BY 3 AND THAT I TOLD HER IT COULD BE SOONER, AND LET MARCOS KNOW. PULLED NURSE REPORT NUMBER FROM VARUN'S NOTE AND GAVE TO NURSEShayla TRAN RN CM WILL SEND DISCHARGE INFORMATION WHEN AVAILABE. DCP- Discharge Planning Updated by [id number]: Parag Morton on 03/19/19 11:[address] Patient Name: KALEIGH GANT Encounter No: [id number] : 1930 Primary Insurance: [facility] MEDICARE SOLUTIONS Anticipated DC Date: 03-20-2019 Planned Disposition: Longterm Facility External Planned Provider: [facility], MEDICARE REHAB BED DCP follow-up note: CM FAXED UPDATE TO [facility], . [facility] TO SUBMIT TO INSURANCE FOR AUTHORIZATION OF REHAB SERVICES. CM SPOKE TO PT AND DAUGHTER, JACIEL MAYA IN ROOM, BOTH IN AGREEMENT WITH DISCHARGE TO [facility]. IMPORTANT MESSAGE FROM MEDICARE PROVIDED AND EXPLAINED. CM WAITING INSURANCE AUTHORIZATION FROM [facility]. ONCE AUTHORIZED AND DISCHARGE RECEIVED, FAX DISCHARGE INFORMATION TO [facility] AT [phone]; NURSE REPORT TO BE CALLED TO [facility] AT [phone]. [facility] TO ARRANGE VAN TRANSPORTATION. Parag Morton CASE MANAGEMENT DCP- Discharge Planning Updated by [id number]: Parag Morton on 03/18/19 12:[address] Patient Name: KALEIGH GANT Encounter No: [id number] : 1930 Primary Insurance: [facility] MEDICARE SOLUTIONS Anticipated DC Date: Planned Disposition: Home or Self Care External Planned Provider: [facility], MEDICARE REHAB BED DCP follow-up note: CM RECEIVED CALL FROM [facility], , WHO ADVISED THAT PT'S INSURANCE AUTHORIZATION AND CM WILL NEED TO SEND REFERRAL UPDATE WITH PHYSICAL AND OCCUPATIONAL THERAPY NOTES. CM REVIEWED CHART, OCCUPATIONAL THERAPY NOT CURRENTLY IN PLACE, ORDER OBTAINED. CM RECEIVED INSURANCE DENIAL FOR INPATIENT REHAB, PROVIDED PT WITH COPY IN ROOM. PT SIGNED FOR RECEIPT OF DENIAL FOR INPATIENT REHAB, SIGNED COPY TO CHART. PT REPORTS PLAN TO GO TO [facility] FOR REHAB. CM WAITING OCCUPATIONAL THERAPY EVALUATION AND WILL FAX TO [facility] AT [phone] WHEN COMPLETED AND DOCUMENTED. ONCE [facility] HAS NEEDED INFORMATION, THEY WILL RESUBMIT FOR INSURANCE AUTHORIZATION FOR PT TO ENTER [facility]. Parag Morton, CASE MANAGEMENT DCP- Discharge Planning Updated by [id number]: Sharon Cao on 03/15/19 1:[address] CM received notice that insurance auth approved for [facility] [id number]. Auth will in 72hrs. If patient discharges on Monday she will need new auth. CM spoke with Dr. Wilkins he did not want to discharge today he stated possibly tomorrow. CM called Marcos Tran and she stated that Rehab would accept patient over weekend if family could provide transportation. CM spoke with both daughters and they have agreed to transport patient if discharged. CM notified Marcos that family could transport if discharged. Marcos states for CM to call facility [facility] [phone] and let them know if discharging so they will be ready when patient arrives. CM will continue to follow and assist as needed with discharge planning / needs. DCP- Discharge Planning Updated by [email or web address]: Nadia Yeung on 03/15/19 8:[address] LATE ENTRY: 03/15/19 @ 0925 DISCUSSED OPTIONS WITH PATIENT AND DAUGHTER ABOUT SKILLED FACILITIES, DAUGHTER WOULD LIKE HER TO GO TO [facility], BECAUSE IT IS IN THE SAME TOWN HER AND SHE COULD COME VISIT. JACOB IS AGREEABLE TO THIS. GUIDO SIGNED AND IMM SERVED AND EXPLAINED. REFERRAL SENT TO MARCOS TRAN FOR [facility]. PATIENT WAS DENIED IN PATIENT REHAB. DCP- Discharge Planning Updated by [id number]: Nadia Yeung on 03/05/19 3:[address] Patient Name: KALEIGH GANT Admission Status: ER Accout number: [id number] Admission Date: 03-04-2019 : 1930 Admission Diagnosis: Attending: TEREZA VILLAFANA Current LOS: 1 Anticipated DC Date: Planned Disposition: Home or Self Care Primary Insurance: [facility] MEDICARE SOLUTIONS Discharge Planning Comments: CM met with patient to complete initial dc planning assessment. CM educated patient on the CM role and verbal consent given by patient to complete assessment. Patient lives at home where she is independent with her care, she does not drive out of town so her daughter will take her to things that are out of her town. At discharge patient plans to return home and feels this is a safe discharge. CM discussed availability of home health, rehab services, and medical equipment. She has a BSC, Cane & walker at home. Patient denied known discharge needs at this time. CM will continue to follow and will assist as needed with dc plans/needs. Community Health Representative: Nadia Yeung DCPIA - Discharge Planning Initial Assessment Updated by [email or web address]: Nadia Yeung on 03/05/19 4:11 pm * Is the patient Alert and Oriented? Yes * How many steps to enter\exit or inside your home? * PCP JONATAN * Pharmacy [facility] * Preadmission Environment Home with Family * ADLs Independent * Equipment Bedside Commode Cane Walker * List name and contact numbers for known caregivers / representatives who currently or will assist patient after discharge: MADAI [phone] * Verbal permission to speak to the caregivers and representatives has been obtained from the patient. N/A * Community resources currently utilized None * Additional services required to return to the preadmission environment? No * Can the patient safely return to the preadmission environment? Yes * Has this patient been hospitalized within the prior 30 days at any hospital? No Coverage Notice Reviewer: [id number] Juana Yeung Notice Issued Date-Time: 03/14/2019 9:25 Notice Type: IM Discharge Notice Notice Delivered To: Patient Relationship to Patient: Fsr Name: Delivery Method: HAND - Hand Delivered Keely Days: Prior Verbal Notification: Recipient Understood Notice: Yes Recipient Signature: Yes Med Rec Note Co-signed by Attending: Coverage Notice Comment: Reviewer: [email or web address] Yeung Notice Issued Date-Time: 03/14/2019 9:25 Notice Type: Patient Choice Letter Notice Delivered To: Patient Relationship to Patient: Fsr Name: Delivery Method: HAND - Hand Delivered Keely Days: Prior Verbal Notification: Recipient Understood Notice: Yes Recipient Signature: Yes Med Rec Note Co-signed by Attending: Coverage Notice Comment: [facility] Reviewer: [id number] Juana Morton Notice Issued Date-Time: 03/19/2019 12:30 Notice Type: IM Discharge Notice Notice Delivered To: Patient Relationship to Patient: Fsr Name: Delivery Method: HAND - Hand Delivered Keely Days: Prior Verbal Notification: Recipient Understood Notice: Yes Recipient Signature: Yes Med Rec Note Co-signed by Attending: Coverage Notice Comment: Last DP export: 03/19/19 11:48 a Patient Name: KALEIGH GANT Page [id number] at 1241 All edits/amendments must be made on the electronic document DICTATION DATE: 03/20/19 1241 AIR COMPRESSOR MECHANIC: NIURKA 03/20/19 1241 RPT#: [id number] DC DATE: STATUS: ADM IN [facility] [address] [place] [address] END OF REPORT
--- NOTE | 2019-03-20 14:47 | NUR ---
OT NOTE: PT REPORTED THAT PAIN IN FOOT WAS SOME BETTER. BED MOB WITH MIN ASSIST; MAX ASSIST TO CAROL SOCKS AND SHOES; MIN ASSIST WITH DONNING GOWN; MIN ASSIST WITH SIMPLE GROOMING TASKS. SIT TO STAND WITH MOD ASSIST X 2 WITH USE OF WALKER. AMB APPROX 140 FT WITH IMPROVEMENT IN UPRIGHT STANDING. SEVERAL CUES TO PUSH UP FROM WALKER WITH ARMS AND KEEP CHEST AND HEAD UP. VERY MINIMAL ASSIST WITH AMB.. DONA AGUDELO, OTR/L
--- NOTE | 2019-03-20 15:45 | NUR ---
OT NOTE: PT COMPLETED BED MOB WITH CGA/MIN A. PT COMPLETED ADL MOB WITH R/W WITH CGA. PT COMPLETED GROOMING TASKS WITH SET UP. THANK YOU, SORAIDA ROCA
--- NOTE | 2019-03-21 07:24 | MORECARE ---
CASE MANAGEMENT DISCHARGE SUMMARY PATIENT: KALEIGH GANT UNIT: [id number] ADM DATE: 03/04/19 AGE: 89 : 34 SEX: F ROOM/BED: D.210 AUTHOR: ODALYS JUAN PHYSICIAN: REFERRING PHYSICIAN: TEREZA VILLAFANA MD DATE OF SERVICE: 03/21/19 Discharge Plan Patient Name: KALEIGH GANT Facility: [facility]:[place] : 1930 Planned Disposition: Assisted Facility Anticipated Discharge Date: 03/20/19 Discharge Date: 03/20/2019 Expected LOS: 16 Initial Reviewer: [id number] Initial Review Date: 03/04/2019 Generated: 03/21/19 8:24 am Comments DCP- Discharge Planning Updated by [id number]: Neyda Aceves on 03/20/19 11:[address] MD HAS ORDERED DISCHARGE IF ACCEPTED BY INSURANCE FOR SNF. SENT MESSAGE TO MARCOS TRAN, CLINICAL [facility]ASON FOR [facility]. SHE STATED THAT INSURANCE HAS APPROVED AND THEY WILL ACCEPT TODAY IF THE DAUGHTER CAN TRANSPORT. I WENT INTO THE ROOM AND DAUGHTER WAS AT BEDSIDE. SHE STATED THAT SHE WILL BE GLAD TO TRANSPORT AND ASKED HOW LONG IT WOULD BE. I EXPLAINED THAT THE PATIENT WOULD BE THE NEXT DISCHARGE TO BE DONE SO IT SHOULDN'T BE THAT LONG. SHE QUESTIONED IF WE COULD HAVE HER OUT BY 3 PM. I EXPLAINED THAT WE COULD PROBABLY HAVE HER OUT WELL BEFORE THEN. EXPLAINED TO EMERGENCY MEDICINE MEDICAL DIRECTOR THAT THE DAUGHTER WOULD TRANSPORT, EXPLAINED TO ASSOCIATE SOFTWARE ENGINEER THAT PT ACCEPTED AND DAUGHTER REQUESTING TO BE OUT BY 3 AND THAT I TOLD HER IT COULD BE SOONER, AND LET MARCOS KNOW. PULLED NURSE REPORT NUMBER FROM VARUN'S NOTE AND GAVE TO NURSE. TAYLER TRAN CM WILL SEND DISCHARGE INFORMATION WHEN AVAILABE. DCP- Discharge Planning Updated by [id number]: Parag Morton on 03/19/19 11:[address] Patient Name: KALEIGH GANT Encounter No: [id number] : 1930 Primary Insurance: [facility] MEDICARE SOLUTIONS Anticipated DC Date: 03-20-2019 Planned Disposition: Assisted Facility External Planned Provider: [facility], MEDICARE REHAB BED DCP follow-up note: CM FAXED UPDATE TO MARC[facility], . [facility] TO SUBMIT TO INSURANCE FOR AUTHORIZATION OF REHAB SERVICES. CM SPOKE TO PT AND DAUGHTER, JACIEL MAYA IN ROOM, BOTH IN AGREEMENT WITH DISCHARGE TO [facility]. IMPORTANT MESSAGE FROM MEDICARE PROVIDED AND EXPLAINED. CM WAITING INSURANCE AUTHORIZATION FROM [facility]. ONCE AUTHORIZED AND DISCHARGE RECEIVED, FAX DISCHARGE INFORMATION TO [facility] AT [phone]; NURSE REPORT TO BE CALLED TO [facility] AT [phone]. [facility] TO ARRANGE VAN TRANSPORTATION. Parag Morton, CASE MANAGEMENT DCP- Discharge Planning Updated by [id number]: Parag Morton on 03/18/19 12:[address] Patient Name: KALEIGH GANT Encounter No: [id number] : 1930 Primary Insurance: [facility] MEDICARE SOLUTIONS Anticipated DC Date: Planned Disposition: Home or Self Care External Planned Provider: [facility], MEDICARE REHAB BED DCP follow-up note: CM RECEIVED CALL FROM [facility], , WHO ADVISED THAT PT'S INSURANCE AUTHORIZATION AND CM WILL NEED TO SEND REFERRAL UPDATE WITH PHYSICAL AND OCCUPATIONAL THERAPY NOTES. CM REVIEWED CHART, OCCUPATIONAL THERAPY NOT CURRENTLY IN PLACE, ORDER OBTAINED. CM RECEIVED INSURANCE DENIAL FOR INPATIENT REHAB, PROVIDED PT WITH COPY IN ROOM. PT SIGNED FOR RECEIPT OF DENIAL FOR INPATIENT REHAB, SIGNED COPY TO CHART. PT REPORTS PLAN TO GO TO [facility] FOR REHAB. CM WAITING OCCUPATIONAL THERAPY EVALUATION AND WILL FAX TO [facility] AT [phone] WHEN COMPLETED AND DOCUMENTED. ONCE [facility] HAS NEEDED INFORMATION, THEY WILL RESUBMIT FOR INSURANCE AUTHORIZATION FOR PT TO ENTER INTERMEDIATE REHAB. Parag Morton, CASE MANAGEMENT DCP- Discharge Planning Updated by [id number]: Sharon Cao on 03/15/19 1:[address] CM received notice that insurance auth approved for [facility] [id number]. Auth will in 72hrs. If patient discharges on Monday she will need new auth. CM spoke with Dr. Franky he did not want to discharge today he stated possibly tomorrow. CM called Marcosdavian Tran and she stated that Rehab would accept patient over weekend if family could provide transportation. CM spoke with both daughters and they have agreed to transport patient if discharged. CM notified Marcos that family could transport if discharged. Marcos states for CM to call facility [facility] [phone] and let them know if discharging so they will be ready when patient arrives. CM will continue to follow and assist as needed with discharge planning / needs. DCP- Discharge Planning Updated by [id number]: Nadia Yeung on 03/15/19 8:[address] LATE ENTRY: 03/15/19 @ 0925 DISCUSSED OPTIONS WITH PATIENT AND DAUGHTER ABOUT SKILLED FACILITIES, DAUGHTER WOULD LIKE HER TO GO TO [facility], BECAUSE IT IS IN THE SAME TOWN HER AND SHE COULD COME VISIT. JACOB IS AGREEABLE TO THIS. GUIDO SIGNED AND IMM SERVED AND EXPLAINED. REFERRAL SENT TO MARCOS TRAN FOR [facility]. PATIENT WAS DENIED IN PATIENT REHAB. DCP- Discharge Planning Updated by [id number]: Nadia Yeung on 03/05/19 3:[address] Patient Name: KALEIGH GANT Admission Status: ER Accout number: [id number] Admission Date: 03-04-2019 : 1930 Admission Diagnosis: Attending: TEREZA VILLAFANA Current LOS: 1 Anticipated DC Date: Planned Disposition: Home or Self Care Primary Insurance: [facility] MEDICARE SOLUTIONS Discharge Planning Comments: CM met with patient to complete initial dc planning assessment. CM educated patient on the CM role and verbal consent given by patient to complete assessment. Patient lives at home where she is independent with her care, she does not drive out of town so her daughter will take her to things that are out of her town. At discharge patient plans to return home and feels this is a safe discharge. CM discussed availability of home health, rehab services, and medical equipment. She has a BSC, Cane & walker at home. Patient denied known discharge needs at this time. CM will continue to follow and will assist as needed with dc plans/needs. Museum Registrar: Nadia Yeung DCPIA - Discharge Planning Initial Assessment Updated by [email or web address]: Nadia Yeung on 03/05/19 4:11 pm * Is the patient Alert and Oriented? Yes * How many steps to enter\exit or inside your home? * PCP JONATAN * Pharmacy [facility] * Preadmission Environment Home with Family * ADLs Independent * Equipment Bedside Commode Cane Walker * List name and contact numbers for known caregivers / representatives who currently or will assist patient after discharge: MADAI [phone] * Verbal permission to speak to the caregivers and representatives has been obtained from the patient. N/A * Community resources currently utilized None * Additional services required to return to the preadmission environment? No * Can the patient safely return to the preadmission environment? Yes * Has this patient been hospitalized within the prior 30 days at any hospital? No Coverage Notice Reviewer: [email or web address] Juana Yeung Notice Issued Date-Time: 03/14/2019 9:25 Notice Type: IM Discharge Notice Notice Delivered To: Patient Relationship to Patient: Community Action Worker Name: Delivery Method: HAND - Hand Delivered Keely Days: Prior Verbal Notification: Recipient Understood Notice: Yes Recipient Signature: Yes Med Rec Note Co-signed by Attending: Coverage Notice Comment: Reviewer: [email or web address] Juana Yeung Notice Issued Date-Time: 03/14/2019 9:25 Notice Type: Patient Choice Letter Notice Delivered To: Patient Relationship to Patient: Community Action Worker Name: Delivery Method: HAND - Hand Delivered Keely Days: Prior Verbal Notification: Recipient Understood Notice: Yes Recipient Signature: Yes Med Rec Note Co-signed by Attending: Coverage Notice Comment: [facility] Reviewer: [id number] Juana Morton Notice Issued Date-Time: 03/19/2019 12:30 Notice Type: IM Discharge Notice Notice Delivered To: Patient Relationship to Patient: Community Action Worker Name: Delivery Method: HAND - Hand Delivered Keely Days: Prior Verbal Notification: Recipient Understood Notice: Yes Recipient Signature: Yes Med Rec Note Co-signed by Attending: Coverage Notice Comment: Last DP export: 03/20/19 11:41 a Patient Name: KALEIGH GANT Page 04859 at 0724 All edits/amendments must be made on the electronic document DICTATION DATE: 03/21/19722 PRODUCTION PACKAGER: NIURKA 03/21/19722 RPT#: [id number] DC DATE:03/20/19 STATUS: DIS IN [facility] [address] [place] [address] END OF REPORT
--- NOTE | 2019-03-26 09:52 | CN ---
PATIENT NAME:KALEIGH BROTHERS MEDICAL RECORD: [id number] : [birth year] LOCATION:D. D.2109 ADMIT DATE: 03/04/19 ACCOUNT: [id number] CONSULTING PHYSICIAN: ANDRES GARNICA MD REFERRING PHYSICIAN: TEREZA VILLAFANA MD DATE OF CONSULTATION: 03/19/2019 CARDIOLOGY CONSULT DIAGNOSES: 1. Angina. 2. Coronary artery disease. 3. Previous multivessel PTCA and stent. 4. Anemia. 5. Peripheral vascular disease. 6. Cellulitis. 7. Hypertension. 8. Hyperlipidemia. HISTORY OF PRESENT ILLNESS: Mrs. Brothers is well known to us with past history of coronary artery disease, multivessel PTCA and stent. She is now in the hospital for peripheral vascular disease. She had a lower extremity revascularization procedure by radiology and she had recurrent cellulitis with this. She did have an episode of chest pain. This was on last , she had an episode of chest pain. Her EKG was with no ST-T changes. Troponin had been negative. She has had no further episodes of chest pain. Her heart rate and blood pressure are optimal with systolic blood pressure in the 120s and heart rate in the 60s. PHYSICAL EXAMINATION: GENERAL APPEARANCE: Well-nourished, well-developed, appears stated age. Level of distress, comfortable. PSYCHIATRIC: Mental status, alert, normal affect. Orientation, oriented to time, place and person. EYES: Lids and conjunctiva, noninjected. No discharge, no pallor. ENT: Lips, teeth, gums, normal dentition. Oropharynx, no cyanosis, no pallor. NECK: Carotid arteries, bilateral normal upstroke, no bruits, no thrills. JUGULAR VEINS: No jugular venous pressure or distention. CERVICAL LYMPH NODES: Nontender, nonenlarged. THYROID: Not enlarged. Nontender. No nodules. LUNGS: Respiratory effort, unlabored. CHEST: Normal curvature. No thoracic deformity. No chest wall tenderness. Percussion, resonant. Auscultation, clear. No wheezes, no rales, no rhonchi. CARDIOVASCULAR: Precordial exam, nondisplaced. No heaves or pericardial thrills. Rate and rhythm, regular. Heart sounds, normal S1, normal S2. No S3, no gallop, no rub. Systolic murmur, not heard. Diastolic murmur, not heard. EXTREMITIES: No cyanosis, no edema. Peripheral pulses, full and equal in all extremities, except as noted. No bruits appreciated. ABDOMEN: Soft, nondistended. Normal aorta. No bruit. Nontender. No masses. Liver, nontender, no hepatomegaly. Spleen, nontender, no splenomegaly. MUSCULOSKELETAL: No joint tenderness. No joint swelling. No erythema. NEUROLOGICAL: Normal gait, normal strength, normal tone. SKIN: Warm and dry. OVERALL IMPRESSION: Recurrent anginal symptomatology, none in the past 4 days. CONSULT REPORT [id number] KALEIGH BROTHERS At this time, she is stable from cardiac standpoint. She does continue to have anginal symptomatology. I would use long-acting nitrates in the form of nitro patch in addition to her current medications. TRANSINT:[id number] Voice Confirmation ID: [id number] DOCUMENT ID: [id number] ANDRES GARNICA MD at 0952 CC: [id number] DICTATION DATE: 03/19/19 155 HOUSE CLEANER SUPERVISOR: 03/19/19 1720 DIS IN 03/20/19 [facility] [address] [place] [address]
== END 2019-03-20 15:28 | DRG 253 ==
LOC: D.ER 17:13 → D.MS 22:24 → D.M2 22:24 → D.ICU 03-14 12:35 → D.M2 03-15 13:14
PROVIDERS: Emergency Medicine; Family Medicine; General Practice; ADMIT Internal Medicine Nephrology; ATTEND Internal Medicine Nephrology
PROC: 047L3DZ Dilation of Left Femoral Artery with Intraluminal Device, Percutaneous Approach (ICD-10-PCS; principal; 2019-03-08 13:00)
DX: I70.212 Atherosclerosis of native arteries of extremities with intermittent claudication, left leg (principal); I70.92 Chronic total occlusion of artery of the extremities; N39.0 Urinary tract infection, site not specified; I25.10 Atherosclerotic heart disease of native coronary artery without angina pectoris; M19.90 Unspecified osteoarthritis, unspecified site; I10 Essential (primary) hypertension; M54.5 Low back pain

== ENCOUNTER → 2020-02-11 12:40 | Outpatient (CLI) | payer MEDICARE ==
[2019-03-05 13:12] VITALS: BMI 22.4
[~2020-02-11 12:40] MED LIST changes: +LEVOFLOXACIN500 MG PO; +NEURONTIN 300300 MG PO; +PRAVASTATIN SOD10 MG PO
== END | disposition home or self-care (01) ==
LOC: D.US 02-03 14:30
PROVIDERS: ATTEND Internal Medicine Cardiovascular Disease
DX: I65.23 Occlusion and stenosis of bilateral carotid arteries (principal)

== ENCOUNTER → 2021-02-08 07:59 | Outpatient (CLI) | payer MEDICARE ==
[2019-03-05 13:12] VITALS: BMI 22.4
== END | disposition home or self-care (01) ==
LOC: D.US 01-22 09:00
PROVIDERS: ATTEND Internal Medicine Interventional Cardiology
DX: I65.29 Occlusion and stenosis of unspecified carotid artery (principal)